=== PATIENT | male | born 1945 | race Hispanic/Latino ===

== ENCOUNTER → 2018-03-15 | Outpatient (CLI) | payer OTHER ==
[~2018-03-15] MED LIST: AEC81 PO; GLIP10TA9 PO; LISI-617 PO; METF-446 PO; METO25TA6 PO; NITR0.4T50 SL; PRAV40TA3 PO
== END | disposition home or self-care (01) ==
LOC: SHCH 08:05
PROVIDERS: ATTEND Internal Medicine Cardiovascular Disease
DX: I34.0 Nonrheumatic mitral (valve) insufficiency (principal)
CPT/HCPCS: 93306

== ENCOUNTER → 2019-03-01 | Outpatient (CLI) | payer OTHER | END | disposition home or self-care (01) | LOC: SHCH 08:15 | PROVIDERS: ATTEND Internal Medicine Cardiovascular Disease | DX: I65.23 Occlusion and stenosis of bilateral carotid arteries (principal) | CPT/HCPCS: 93880 ==

== ENCOUNTER 2019-05-05 07:27 | Day surgery (SDC) | payer OTHER ==
[2019-05-02 12:03] LABS: BASOPHILS % (AUTO) 0.5 % (0.0-5.0); EOSINOPHILS % (AUTO) 1.1 % (0.0-8.0); HEMATOCRIT 38.1 % (42-54); LYMPHOCYTES % (AUTO) 21.2 % (21.0-51.0); MEAN CORPUSCULAR HEMOGLOBIN 33.8 pg (27.0-33.0); MEAN CORPUSCULAR HGB CONC 34.7 g/dL (32.0-36.0); MEAN CORPUSCULAR VOLUME 97.4 fL (79-99); MONOCYTES % (AUTO) 5.9 % (3.0-13.0); NEUTROPHILS % (AUTO) 71.3 % (40.0-77.0); PLATELET COUNT (AUTO) 136 K/uL (130-400); RED BLOOD CELL COUNT(AUTO) 3.92 MIL/uL (4.50-6.20); WHITE BLOOD COUNT (AUTO) 6.2 K/uL (4.8-10.8)
[2019-05-02 12:10] LABS: APPEARANCE,URINE Clear (CLEAR); BILIRUBIN,URINE Negative (NEGATIVE); COLOR,URINE Yellow (YELLOW); GLUCOSE, URINE (UA) >=1000 mg/dL (NEGATIVE); KETONES,URINE Negative (NEGATIVE); LEUKOCYTE ESTERASE ,URINE Trace (NEGATIVE); NITRATE,URINE Negative (NEGATIVE); OCCULT BLOOD,URINE Negative (NEGATIVE); PROTEIN,URINE Negative (NEGATIVE)
[2019-05-02 12:15] LABS: CREATININE 0.9 mg/dL (0.5-1.5); POTASSIUM 4.6 mmol/L (3.5-5.1)
[2019-05-02 13:02] LABS: BACTERIA,URINE Rare /HPF (None Seen); RBC,URINE 0-1 /HPF (0-1); SQUAMOUS EPITHELIAL CELL,UR Rare /HPF (0-2)
--- NOTE | 2019-05-02 13:38 | NUR ---
EKG INFORMED DR. ELIZABETH OF ABNORMAL EKG. NO ORDERS RECEIVED PROCEED WITH PLANNED PROCEDURE.
[2019-05-05] VITALS (14 sets, daily range): BP systolic 110–176; BP diastolic 50–77
[~2019-05-05] VITALS: Ht 167.6 cm; Wt 95.7 kg
[~2019-05-05 07:27] MED LIST changes: +GENTAMICIN 80 MG/NS 100 ML PB 100 ML IV SCH; +LISI-613 PO; -LISI-617 PO; +MULT-1258 PO; -NITR0.4T50 SL; -PRAV40TA3 PO; +ROSU5TAB12 PO
[2019-05-05] MEDS ORDERED: SODIUM CHLORIDE 0.9% 1000ML 1,000 ML IV ONE (07:44)
[2019-05-05] MEDS: CEFTRIAXONE SODIUM 1 GM IVP SCH ×2 (08:00→08:45)
[2019-05-05] MEDS ORDERED: SUCCINYLCHOLINE 200MG/10ML SYR ONE (08:41)
[2019-05-05] MEDS ORDERED: LIDOCAINE PF 2% 5ML ABBOJECT ONE (08:41)
[2019-05-05] MEDS ORDERED: DEXAMETHASONE SOD PHOSPHATE 10MG/ML 1ML VIAL ONE (08:41)
[2019-05-05] MEDS ORDERED: ONDANSETRON HCL 4 MG/2 ML VIAL ONE (08:42)
[2019-05-05] MEDS ORDERED: MIDAZOLAM HCL 1 MG/ML 2ML VIAL ONE (08:42)
[2019-05-05] MEDS ORDERED: PROPOFOL 10 MG/ML 20ML VIAL IV ONE ×2 (08:42→08:53)
[2019-05-05] MEDS ORDERED: ROCURONIUM 10MG/1ML SYR 10 MG/ML ML ONE (08:42)
[2019-05-05] MEDS ORDERED: GLYCOPYRROLATE 1 MG/5 ML SYRINGE ONE (08:42)
[2019-05-05] MEDS ORDERED: NEOSTIGMINE 5MG/5ML SYR IV ONE (08:42)
[2019-05-05] MEDS ORDERED: FENTANYL CITRATE PF 50 MCG/1 ML 2ML VIAL ONE (08:44)
[2019-05-05] MEDS ORDERED: EPHEDRINE SULFATE 50 MG/ML AMPULE ONE (09:06)
== END 2019-05-05 10:52 | disposition home or self-care (01) ==
LOC: DAH 07:27
PROVIDERS: ATTEND Urology
DX: R97.20 Elevated prostate specific antigen [PSA] (principal); N40.0 Benign prostatic hyperplasia without lower urinary tract symptoms; I25.10 Atherosclerotic heart disease of native coronary artery without angina pectoris; E11.9 Type 2 diabetes mellitus without complications; I10 Essential (primary) hypertension; Z79.84 Long term (current) use of oral hypoglycemic drugs; Z79.82 Long term (current) use of aspirin; Z95.1 Presence of aortocoronary bypass graft; Z72.89 Other problems related to lifestyle; Z83.3 Family history of diabetes mellitus; Z82.49 Family history of ischemic heart disease and other diseases of the circulatory system
CPT/HCPCS: 36415; 55700; 76942; 80048; 81001; 82948 ×2; 85025; 87077; 87088; 87186; 88305; 93005; 96365; A4213; A4215; A4221; A4222; A4223 ×2; A4600; A4663; A6260; J0330; J0696; J1100; J1580; J2001; J2250; J2405; J2704; J2710; J3490 ×2; J7030 ×2; J3010

== ENCOUNTER 2022-10-01 23:13 | Emergency (ER) | payer MEDICARE, OTHER ==
[~2022-10-01] VITALS: Ht 160 cm; Wt 90.7 kg
[~2022-10-01 23:13] MED LIST changes: -GENTAMICIN 80 MG/NS 100 ML PB 100 ML IV SCH; -LISI-613 PO; +LISI20TA24 PO
[2022-10-02 01:13] LABS: BASOPHILS % (AUTO) 0.4 % (0.0-5.0); EOSINOPHILS % (AUTO) 1.3 % (0.0-8.0); HEMATOCRIT 38.5 % (42-54); LYMPHOCYTES % (AUTO) 31.7 % (21.0-51.0); MEAN CORPUSCULAR HEMOGLOBIN 33.8 pg (27.0-33.0); MEAN CORPUSCULAR HGB CONC 33.8 g/dL (32.0-36.0); MONOCYTES % (AUTO) 7.6 % (3.0-13.0); NEUTROPHILS % (AUTO) 58.7 % (40.0-77.0); PLATELET COUNT (AUTO) 126 K/uL (130-400); RED BLOOD CELL COUNT(AUTO) 3.85 MIL/uL (4.50-6.20); RED CELL DISTRIBUTION WIDTH 13.4 % (11.0-15.5); WHITE BLOOD COUNT (AUTO) 6.8 K/uL (4.8-10.8)
[2022-10-02 01:26] LABS: CARBON DIOXIDE 29 mmol/L (21-32); CHLORIDE 105 mmol/L (101-111); CREATININE 0.8 mg/dL (0.5-1.5); GLOMERULAR FILTR. RATE CALC 92 mL/min (>90); GLUCOSE,RANDOM 107 mg/dL (70-105); POTASSIUM 4.3 mmol/L (3.5-5.1); SODIUM SERUM 139 mmol/L (136-145); UREA NITROGEN, BLOOD 15 mg/dL (7-18)
[2022-10-02 01:32] LABS: ALANINE AMINOTRANSFERASE 41 U/L (12-78); ALBUMIN 3.2 g/dL (3.5-5.0); ASPARTATE AMINOTRANSFERASE 41 U/L (10-37); TOTAL PROTEIN, SERUM 6.6 g/dL (6.0-8.3)
[2022-10-02 01:38] VITALS: BP 166/67
[2022-10-02 01:45] LABS: APPEARANCE,URINE CLEAR (CLEAR); BILIRUBIN,URINE NEGATIVE (NEGATIVE); COLOR,URINE LIGHT-YELLOW (YELLOW); GLUCOSE, URINE (UA) >=1000 mg/dL (NEGATIVE); KETONES,URINE NEGATIVE (NEGATIVE); LEUKOCYTE ESTERASE ,URINE 500 Leu/uL (NEGATIVE); NITRATE,URINE NEGATIVE (NEGATIVE); PH,URINE 5.5 (5.0-8.0); PROTEIN,URINE NEGATIVE (NEGATIVE); UROBILINOGEN,URINE 0.2 mg/dL (0.2-1.0)
[2022-10-02 01:49] LABS: AMPHET/METH SCREEN,URINE NEGATIVE (NEGATIVE); BARBITURATE SCREEN, URINE NEGATIVE (NEGATIVE); BENZODIAZEPINES SCREEN,URINE NEGATIVE (NEGATIVE); CANNABINOID SCREEN,URINE NEGATIVE (NEGATIVE); COCAINE SCREEN,URINE NEGATIVE (NEGATIVE); OPIATE SCREEN,URINE NEGATIVE (NEGATIVE); PHENCYCLIDINE SCREEN,URINE NEGATIVE (NEGATIVE)
[2022-10-02 01:51] LABS: MUCUS,URINE RARE LPF (None Seen); SQUAMOUS EPITHELIAL CELL,UR RARE /HPF (0-2)
== END 2022-10-02 02:37 | disposition home or self-care (01) ==
LOC: EDH 23:13
DX: I45.10 Unspecified right bundle-branch block (principal); R42 Dizziness and giddiness; E11.9 Type 2 diabetes mellitus without complications; E78.00 Pure hypercholesterolemia, unspecified; I10 Essential (primary) hypertension; Z79.82 Long term (current) use of aspirin; Z79.84 Long term (current) use of oral hypoglycemic drugs; Z79.899 Other long term (current) drug therapy
CPT/HCPCS: 36415; 70450; 71045; 80053; 80305; 81001; 83880; 84484; 85025; 87088; 93005

== ENCOUNTER → 2022-11-01 | Outpatient (CLI) | payer MEDICARE | END | disposition home or self-care (01) | LOC: SHCH 08:05 | PROVIDERS: ATTEND Internal Medicine Cardiovascular Disease | DX: I08.0 Rheumatic disorders of both mitral and aortic valves (principal); I11.9 Hypertensive heart disease without heart failure | CPT/HCPCS: 93306 ==

== ENCOUNTER → 2022-11-07 | Outpatient (CLI) | payer MEDICARE ==
[~2022-11-07] MED LIST changes: +REGADENOSON 0.4 MG/5 ML PF SYG IVP ONE
== END | disposition home or self-care (01) ==
LOC: CANPRECLI → SHCH 08:00
PROVIDERS: ATTEND Internal Medicine Cardiovascular Disease
DX: I25.10 Atherosclerotic heart disease of native coronary artery without angina pectoris (principal); I10 Essential (primary) hypertension; E78.5 Hyperlipidemia, unspecified; Z95.1 Presence of aortocoronary bypass graft; Z79.899 Other long term (current) drug therapy; Z79.82 Long term (current) use of aspirin
CPT/HCPCS: 78452; 96374; 93017; J2785; A9500 ×2

== ENCOUNTER → 2023-03-03 | Outpatient (CLI) | payer MEDICARE ==
[~2023-03-03] MED LIST changes: +ALBU90AE2 IH; +AZIT500T4 PO; +DOXY100T2 PO; +METH4TAB3 PO; -REGADENOSON 0.4 MG/5 ML PF SYG IVP ONE
[2023-03-03 12:48] LABS: ALBUMIN 3.1 g/dL (3.5-5.0); BILIRUBIN,TOTAL 0.3 mg/dL (0.2-1.0); CREATININE 1.2 mg/dL (0.5-1.5); POTASSIUM 4.7 mmol/L (3.5-5.1); TOTAL PROTEIN, SERUM 7.2 g/dL (6.0-8.3)
== END | disposition home or self-care (01) ==
LOC: LAB 10-14 13:44
PROVIDERS: ATTEND Internal Medicine Cardiovascular Disease
DX: I10 Essential (primary) hypertension (principal); E78.5 Hyperlipidemia, unspecified
CPT/HCPCS: 36415; 80053; 83880

== ENCOUNTER 2023-10-12 11:10 | Day surgery (SDC) | payer MEDICARE ==
[2023-10-09 16:00] LABS: BASOPHILS # (AUTO) 0.04 K/uL (0.00-0.20); BASOPHILS % (AUTO) 0.6 % (0.0-5.0); EOSINOPHILS # (AUTO) 0.09 K/uL (0.00-0.70); EOSINOPHILS % (AUTO) 1.4 % (0.0-8.0); HEMATOCRIT 40.4 % (42-54); IMMATURE GRANULOCYTE ABSOLUTE 0.03 K/uL (0-1); LYMPHOCYTES # (AUTO) 2.4 K/uL (1.0-4.8); LYMPHOCYTES % (AUTO) 37.4 % (21.0-51.0); MEAN CORPUSCULAR HEMOGLOBIN 32.2 pg (27.0-33.0); MEAN CORPUSCULAR HGB CONC 33.7 g/dL (32.0-36.0); MEAN CORPUSCULAR VOLUME 95.5 fL (79-99); MONOCYTES # (AUTO) 0.6 K/uL (0.1-1.0); MONOCYTES % (AUTO) 8.4 % (3.0-13.0); NEUTROPHILS # (AUTO) 3.4 K/uL (1.8-7.7); NEUTROPHILS % (AUTO) 51.7 % (40.0-77.0); PLATELET COUNT (AUTO) 159 K/uL (130-400); RED BLOOD CELL COUNT(AUTO) 4.23 MIL/uL (4.50-6.20); WHITE BLOOD COUNT (AUTO) 6.5 K/uL (4.8-10.8)
[2023-10-09 16:09] LABS: APPEARANCE,URINE CLEAR (CLEAR); BILIRUBIN,URINE NEGATIVE (NEGATIVE); COLOR,URINE LIGHT-YELLOW (YELLOW); GLUCOSE, URINE (UA) >=1000 mg/dL (NEGATIVE); KETONES,URINE NEGATIVE (NEGATIVE); LEUKOCYTE ESTERASE ,URINE 25 Leu/uL (NEGATIVE); NITRATE,URINE NEGATIVE (NEGATIVE); PROTEIN,URINE NEGATIVE (NEGATIVE); UROBILINOGEN,URINE 0.2 mg/dL (0.2-1.0)
[2023-10-09 16:10] LABS: ADD UA MICROSCOPIC YES
[2023-10-09 16:12] VITALS: BP 156/65; PULSE 96; RESP 16
[2023-10-09 16:14] LABS: BACTERIA,URINE RARE /HPF (None Seen); MUCUS,URINE RARE LPF (None Seen); SQUAMOUS EPITHELIAL CELL,UR RARE /HPF (0-2)
[2023-10-09 16:17] LABS: CREATININE 0.8 mg/dL (0.5-1.3); POTASSIUM 4.2 mmol/L (3.5-5.1)
[2023-10-09 16:19] LABS: INR <= 0.93 (0.85-1.15); PROTHROMBIN TIME 10.5 SEC (9.6-11.6)
[2023-10-09 16:21] LABS: PARTIAL THROMBOPLASTIN TIME 26.4 SEC (26.3-35.5)
[2023-10-09 16:22] LABS: B-TYPE NATRIURETIC PEPTIDE 108 pg/mL (0-100)
[2023-10-12] VITALS (10 sets, daily range): BP systolic 139–188; BP diastolic 53–75; PULSE 56–71; RESP 14–18
[~2023-10-12] VITALS: Ht 170.2 cm; Wt 83.3 kg
[~2023-10-12 11:10] MED LIST changes: -ALBU90AE2 IH; +ALBUTEROL IH; -AZIT500T4 PO; -DOXY100T2 PO; +EMPA10TA PO; +FURO40TA5 PO; -LISI20TA24 PO; -METF-446 PO; -METH4TAB3 PO; -MULT-1258 PO; +OLME40TA18 PO
[2023-10-12] MEDS: 0.9%NACL 1000ML 1,000 ML IV ONE (13:36)
[2023-10-12] MEDS ORDERED: LIDOCAINE HCL 400MG/20ML VIAL ONE (16:36)
[2023-10-12] MEDS ORDERED: SODIUM BICARB 50MEQ 50ML VIAL 50 ML ONE (16:36)
[2023-10-12] MEDS ORDERED: NITROGLYCERIN 50MG VIAL ONE (16:37)
[2023-10-12] MEDS ORDERED: IOHEXOL-350 50ML VIAL IV ONE (16:37)
[2023-10-12] MEDS ORDERED: IOHEXOL 350 MG/ML 100ML INFUS..BTL IV ONE (16:37)
[2023-10-12] MEDS ORDERED: MIDAZOLAM HCL 1 MG/ML 2ML VIAL ONE (16:37)
[2023-10-12] MEDS ORDERED: MEPERIDINE-PF 25 MG/ML SYG ONE (16:37)
[2023-10-12] MEDS ORDERED: HEPARIN 10,000 UNIT/10ML (1,000 UNIT/ML) VIAL ONE (16:37)
[2023-10-12] MEDS: 0.9%NACL 1000ML 1,000 ML IV SCH (17:00)
[2023-10-12] MEDS ORDERED: GLUCAGON 1MG KIT 1 MG ML IM PRN (17:30)
[2023-10-12] MEDS ORDERED: DEXTROSE 50%-WATER 50 ML DISP.SYRIN IV PRN (17:30)
[2023-10-12] MEDS ORDERED: INSULIN HUMULIN R 100 UNIT/ML 3ML SQ SCH (21:00)
== END 2023-10-12 21:09 | disposition home or self-care (01) ==
LOC: DAH 11:10
PROVIDERS: ATTEND Internal Medicine Cardiovascular Disease
DX: I25.10 Atherosclerotic heart disease of native coronary artery without angina pectoris (principal); I25.82 Chronic total occlusion of coronary artery; I42.9 Cardiomyopathy, unspecified; I44.0 Atrioventricular block, first degree; I49.1 Atrial premature depolarization; I11.0 Hypertensive heart disease with heart failure; I45.10 Unspecified right bundle-branch block; E11.9 Type 2 diabetes mellitus without complications; I50.9 Heart failure, unspecified; E66.9 Obesity, unspecified; Z79.899 Other long term (current) drug therapy; Z79.01 Long term (current) use of anticoagulants; Z79.82 Long term (current) use of aspirin; Z98.890 Other specified postprocedural states; Z95.1 Presence of aortocoronary bypass graft; Z82.49 Family history of ischemic heart disease and other diseases of the circulatory system; Z83.3 Family history of diabetes mellitus; Z68.29 Body mass index [BMI] 29.0-29.9, adult
CPT/HCPCS: 80048; 83880; 85025; 85610; 85730; 81001; 36415; 71045; 93005; 93459; 82948 ×2; C1894; C1760; J3490 ×3; J7030; J2250; J2175; J1644; Q9967; A4215; A4222; A4221; A4663; A4216; A4606; Q9965; A4223 ×3; 99156; 99157

== ENCOUNTER 2023-11-16 00:04 | Inpatient (IN) | payer MEDICARE ==
[~2023-11-16] VITALS: Ht 162.6 cm; Wt 78.9 kg
[2023-11-16] VITALS (10 sets, daily range): BP systolic 130–165; BP diastolic 59–72; PULSE 60–100; RESP 16–22; O2SAT 95–98
[~2023-11-16 00:04] MED LIST changes: -ALBUTEROL IH; +CHOL500051 PO; +CYAN-106 PO; -EMPA10TA PO; +EMPA25TA PO; +FOLI0.4T6 PO; +ICOS1CAP2 PO; -ROSU5TAB12 PO; +ROSU5TAB43 PO
[2023-11-16 00:43] LABS: BASOPHILS # (AUTO) 0.03 K/uL (0.00-0.20); BASOPHILS % (AUTO) 0.2 % (0.0-5.0); EOSINOPHILS # (AUTO) 0.01 K/uL (0.00-0.70); EOSINOPHILS % (AUTO) 0.1 % (0.0-8.0); HEMATOCRIT 36.8 % (42-54); IMMATURE GRANULOCYTE ABSOLUTE 0.37 K/uL (0-1); LYMPHOCYTES # (AUTO) 1.5 K/uL (1.0-4.8); LYMPHOCYTES % (AUTO) 10.4 % (21.0-51.0); MEAN CORPUSCULAR HEMOGLOBIN 31.7 pg (27.0-33.0); MEAN CORPUSCULAR HGB CONC 34.2 g/dL (32.0-36.0); MEAN CORPUSCULAR VOLUME 92.7 fL (79-99); MONOCYTES # (AUTO) 0.8 K/uL (0.1-1.0); MONOCYTES % (AUTO) 5.4 % (3.0-13.0); NEUTROPHILS # (AUTO) 11.7 K/uL (1.8-7.7); NEUTROPHILS % (AUTO) 81.3 % (40.0-77.0); PLATELET COUNT (AUTO) 102 K/uL (130-400); RED BLOOD CELL COUNT(AUTO) 3.97 MIL/uL (4.50-6.20); RED CELL DISTRIBUTION WIDTH 13.6 % (11.0-15.5); WHITE BLOOD COUNT (AUTO) 14.4 K/uL (4.8-10.8)
[2023-11-16] MEDS: ACETAMINOPHEN 500 MG TABLET PO ONE (00:44)
[2023-11-16] MEDS: SOLU-MEDROL 125MG VIAL IVP ONE (00:44)
[2023-11-16 00:49] LABS: SARS-CoV-2, RNA, NAAT NEGATIVE SARS CoV-2 (NEGATIVE)
[2023-11-16 00:54] LABS: CREATININE 1.3 mg/dL (0.5-1.3); POTASSIUM 4.6 mmol/L (3.5-5.1)
[2023-11-16 00:54] LABS: INFLUENZA TYPE A Negative For Type A (NEGATIVE); INFLUENZA TYPE B Negative For Type B (NEGATIVE)
[2023-11-16 01:03] LABS: B-TYPE NATRIURETIC PEPTIDE 107 pg/mL (0-100)
[2023-11-16] MEDS: IPRATROPIUM/ALBUTEROL SULFATE 3 ML SOLUTION IH ONE (01:03)
[2023-11-16 01:06] LABS: APPEARANCE,URINE CLEAR (CLEAR); BILIRUBIN,URINE NEGATIVE (NEGATIVE); COLOR,URINE LIGHT-YELLOW (YELLOW); GLUCOSE, URINE (UA) >=1000 mg/dL (NEGATIVE); KETONES,URINE 20 mg/dL (NEGATIVE); LEUKOCYTE ESTERASE ,URINE 250 Leu/uL (NEGATIVE); NITRATE,URINE NEGATIVE (NEGATIVE); OCCULT BLOOD,URINE MODERATE (NEGATIVE); PH,URINE 6.5 (5.0-8.0); PROTEIN,URINE 30 mg/dL (NEGATIVE); UROBILINOGEN,URINE 0.2 mg/dL (0.2-1.0)
[2023-11-16 01:10] LABS: ADD UA MICROSCOPIC YES
[2023-11-16 01:11] LABS: SQUAMOUS EPITHELIAL CELL,UR RARE /HPF (0-2); WBC,URINE >100 /HPF (0-1)
[2023-11-16] MEDS: ZOSYN 3.375GM +NS 50ML IV ONE (01:29)
[2023-11-16] MEDS ORDERED: ONDANSETRON 4MG INJ IV PRN (01:30)
[2023-11-16] MEDS ORDERED: DiphenhydrAMINE HCL 50 MG/ML VIAL IV PRN (01:30)
[2023-11-16] MEDS ORDERED: ZOLPIDEM TARTRATE 5 MG TAB PO PRN (01:30)
[2023-11-16] MEDS ORDERED: MAG/ALUM/SIMETH 30 ML UDCUP PO PRN (01:30)
[2023-11-16] MEDS ORDERED: KCL 20 MEQ ERTAB PO PRN (01:30)
[2023-11-16] MEDS ORDERED: VANCOMYCIN PROTOCOL PER PHARMACY IV PRN (01:30)
[2023-11-16] MEDS ORDERED: GLUCAGON 1MG KIT 1 MG ML IM PRN (01:30)
[2023-11-16] MEDS ORDERED: LACTULOSE 20 GM/30 ML UDCUP PO PRN (01:30)
[2023-11-16] MEDS ORDERED: FAMOTIDINE 20MG VIAL IV PRN (01:30)
[2023-11-16] MEDS ORDERED: DEXTROSE 50%-WATER 50 ML DISP.SYRIN IV PRN (01:30)
[2023-11-16] MEDS ORDERED: POTASSIUM CHLORIDE 10MEQ/100ML 100 ML IV PRN (01:30)
[2023-11-16] MEDS ORDERED: MAGNESIUM 2GM PREMIX 50ML 50 ML IV PRN (01:30)
[2023-11-16] MEDS ORDERED: ACETAMINOPHEN 325 MG TAB PO PRN (01:30)
[2023-11-16] MEDS ORDERED: NITROGLYCERIN 0.4 MG SL TAB SL PRN (01:30)
[2023-11-16] MEDS: VANCOMYCIN KIT 1 GM/250 ML IV.KIT IV ONE (01:32)
[2023-11-16 01:39] LABS: HEMOGLOBIN A1C 6.8 % (4.0-6.0)
[2023-11-16] MEDS: 0.9%NACL 1000ML 1,000 ML IV SCH ×2 (03:11→05:10)
[2023-11-16 04:23] LABS: AMMONIA < 10 umol/L (11-32)
[2023-11-16] MEDS: ZOSYN 3.375GM+NS 50ML 50 ML IV SCH (05:30)
[2023-11-16] MEDS: INSULIN HUMULIN R 100 UNIT/ML 3ML SQ SCH (06:13)
[2023-11-16] MEDS: FAMOTIDINE 20MG VIAL IV SCH ×2 (08:23→20:22)
[2023-11-16] MEDS: HEPARIN 5,000 UNIT VIAL SQ SCH (08:26)
[2023-11-16] MEDS: LACTATED RINGERS 1000ML 1,000 ML IV SCH (10:07)
[2023-11-16] MEDS ORDERED: EMPA25TA PO (10:39)
[2023-11-16 10:53] LABS: ABG HCO3 19.3 mmol/L (21.0-28.0); ABG OXYGEN SATURATION 97.6 % (95.0-99.0); ABG PCO2 37 mmHg (35-48); PO2, ARTERIAL BG 106.8 mmHg (83.0-108.0); VENT MODE, BG 2 L NC (ROOM AIR)
[2023-11-16] MEDS: BUDESONIDE 0.5 MG/2 ML INH IH SCH (18:00)
[2023-11-16] MEDS: IPRATROPIUM/ALBUTEROL SULFATE 3 ML SOLUTION IH SCH (18:00)
[2023-11-16] MEDS: DOXYCYCLINE 100MG+NS 250ML 250 ML IV SCH (18:09)
[2023-11-16] MEDS: CEFEPIME HCL 1 GM VIAL IVPB SCH (18:09)
[2023-11-17] VITALS (11 sets, daily range): BP systolic 130–151; BP diastolic 59–85; PULSE 62–78; RESP 16–21; O2SAT 96–98
[2023-11-17 05:23] LABS: HEMATOCRIT 34.4 % (42-54); MEAN CORPUSCULAR HGB CONC 32.8 g/dL (32.0-36.0); MEAN CORPUSCULAR VOLUME 94.5 fL (79-99); RED BLOOD CELL COUNT(AUTO) 3.64 MIL/uL (4.50-6.20); RED CELL DISTRIBUTION WIDTH 13.5 % (11.0-15.5); WHITE BLOOD COUNT (AUTO) 10.4 K/uL (4.8-10.8)
[2023-11-17 05:45] LABS: ALBUMIN 2.2 g/dL (3.5-5.0); BILIRUBIN,TOTAL 0.3 mg/dL (0.2-1.0); MAGNESIUM 2.3 mg/dL (1.80-2.40); POTASSIUM 4.4 mmol/L (3.5-5.1); TOTAL PROTEIN, SERUM 6.2 g/dL (6.0-8.3)
[2023-11-17] MEDS ORDERED: VANCOMYCIN 1G/250ML KIT 250 ML IV SCH (08:00)
[2023-11-17] MEDS: GUAIFENESIN-DM 200/20 MG 10 ML PO PRN (09:24)
[2023-11-18] VITALS (14 sets, daily range): BP systolic 148–172; BP diastolic 60–78; PULSE 74–106; RESP 18–19; O2SAT 93–98
[2023-11-18 04:54] LABS: HEMATOCRIT 31.3 % (42-54); MEAN CORPUSCULAR HEMOGLOBIN 31.7 pg (27.0-33.0); MEAN CORPUSCULAR HGB CONC 34.2 g/dL (32.0-36.0); MEAN CORPUSCULAR VOLUME 92.6 fL (79-99); RED BLOOD CELL COUNT(AUTO) 3.38 MIL/uL (4.50-6.20); RED CELL DISTRIBUTION WIDTH 13.8 % (11.0-15.5); WHITE BLOOD COUNT (AUTO) 6.9 K/uL (4.8-10.8)
[2023-11-18 05:06] LABS: CREATININE 0.9 mg/dL (0.5-1.3); POTASSIUM 3.8 mmol/L (3.5-5.1)
[2023-11-18] MEDS: HYDRALAZINE 20MG/ML VIAL IV PRN (11:37)
[2023-11-18] MEDS: ZOSYN 3.375GM +NS 50ML IV SCH (13:15)
[2023-11-18] MEDS: ACETAMINOPHEN 325 MG TAB PO PRN (13:43)
[2023-11-18 14:53] LABS: INR <= 0.93 (0.85-1.15); PROTHROMBIN TIME 10.4 SEC (9.6-11.6)
[2023-11-18 14:55] LABS: PARTIAL THROMBOPLASTIN TIME 26.5 SEC (26.3-35.5)
[2023-11-19] VITALS (15 sets, daily range): BP systolic 127–173; BP diastolic 60–96; PULSE 56–105; RESP 17–28; TEMP 98.5; O2SAT 92–98
[2023-11-19 04:21] LABS: HEMATOCRIT 34.7 % (42-54); MEAN CORPUSCULAR VOLUME 91.1 fL (79-99); RED BLOOD CELL COUNT(AUTO) 3.81 MIL/uL (4.50-6.20); RED CELL DISTRIBUTION WIDTH 13.7 % (11.0-15.5); WHITE BLOOD COUNT (AUTO) 5.1 K/uL (4.8-10.8)
[2023-11-19 04:26] LABS: CREATININE 0.9 mg/dL (0.5-1.3); POTASSIUM 3.2 mmol/L (3.5-5.1)
[2023-11-19] MEDS: POTASSIUM CHLORIDE 10MEQ SR TAB PO PRN (06:15)
[2023-11-19] MEDS: KETOROLAC 15MG/ML VIAL (15MG/ML) IV PRN (06:16)
[2023-11-19] MEDS: ACETAMINOPHEN 325 MG TAB PO PRN (10:02)
[2023-11-19 11:31] LABS: INFLUENZA TYPE A Negative For Type A (NEGATIVE); INFLUENZA TYPE B Negative For Type B (NEGATIVE)
[2023-11-19] MEDS: POTASSIUM CHLORIDE 10% ELIXIR 20 MEQ/15 ML UDCUP PO PRN (13:36)
[2023-11-19] MEDS: ALBUTEROL 0.083% 2.5 MG/3 ML INH IH ONE (16:28)
[2023-11-19] MEDS: ALBUTEROL 0.083% 2.5 MG/3 ML INH IH PRN (16:28)
[2023-11-19] MEDS: FUROSEMIDE 20MG VIAL IV ONE (16:49)
[2023-11-19] MEDS: ALPRAZOLAM 0.25 MG TABLET PO SCH (17:33)
[2023-11-19] MEDS: PHENAZOPYRIDINE HCL 200 MG TABLET PO ONE (19:40)
[2023-11-19] MEDS: NYSTATIN 30 GM CREAM.GM. TP SCH (20:30)
[2023-11-20] VITALS (12 sets, daily range): BP systolic 126–156; BP diastolic 49–76; PULSE 86–99; RESP 16–20; O2SAT 93–100
[2023-11-20 05:28] LABS: BASOPHILS # (AUTO) 0.01 K/uL (0.00-0.20); BASOPHILS % (AUTO) 0.2 % (0.0-5.0); EOSINOPHILS # (AUTO) 0.03 K/uL (0.00-0.70); EOSINOPHILS % (AUTO) 0.6 % (0.0-8.0); HEMATOCRIT 34.2 % (42-54); IMMATURE GRANULOCYTE ABSOLUTE 0.08 K/uL (0-1); LYMPHOCYTES # (AUTO) 0.8 K/uL (1.0-4.8); LYMPHOCYTES % (AUTO) 14.6 % (21.0-51.0); MEAN CORPUSCULAR HEMOGLOBIN 31.3 pg (27.0-33.0); MEAN CORPUSCULAR HGB CONC 33.9 g/dL (32.0-36.0); MEAN CORPUSCULAR VOLUME 92.2 fL (79-99); MONOCYTES # (AUTO) 0.3 K/uL (0.1-1.0); MONOCYTES % (AUTO) 6.3 % (3.0-13.0); NEUTROPHILS % (AUTO) 76.8 % (40.0-77.0); PLATELET COUNT (AUTO) 112 K/uL (130-400); RED BLOOD CELL COUNT(AUTO) 3.71 MIL/uL (4.50-6.20); RED CELL DISTRIBUTION WIDTH 13.6 % (11.0-15.5); WHITE BLOOD COUNT (AUTO) 5.2 K/uL (4.8-10.8)
[2023-11-20 05:55] LABS: ALBUMIN 2.1 g/dL (3.5-5.0); BILIRUBIN,TOTAL 0.6 mg/dL (0.2-1.0); CREATININE 0.7 mg/dL (0.5-1.3); POTASSIUM 3.2 mmol/L (3.5-5.1); TOTAL PROTEIN, SERUM 5.8 g/dL (6.0-8.3)
[2023-11-20 15:23] LABS: APPEARANCE,URINE CLEAR (CLEAR); BILIRUBIN,URINE NEGATIVE (NEGATIVE); COLOR,URINE YELLOW (YELLOW); GLUCOSE, URINE (UA) >=1000 mg/dL (NEGATIVE); KETONES,URINE NEGATIVE (NEGATIVE); LEUKOCYTE ESTERASE ,URINE 25 Leu/uL (NEGATIVE); NITRATE,URINE NEGATIVE (NEGATIVE); OCCULT BLOOD,URINE NEGATIVE (NEGATIVE); PROTEIN,URINE NEGATIVE (NEGATIVE); UROBILINOGEN,URINE 0.2 mg/dL (0.2-1.0)
[2023-11-20 15:36] LABS: ADD UA MICROSCOPIC YES
[2023-11-20 15:46] LABS: MUCUS,URINE RARE LPF (None Seen)
[2023-11-21] VITALS (15 sets, daily range): BP systolic 128–141; BP diastolic 50–76; PULSE 78–98; RESP 16–20; O2SAT 92–99
[2023-11-21 04:22] LABS: BASOPHILS # (AUTO) 0.02 K/uL (0.00-0.20); BASOPHILS % (AUTO) 0.5 % (0.0-5.0); EOSINOPHILS # (AUTO) 0.16 K/uL (0.00-0.70); EOSINOPHILS % (AUTO) 3.9 % (0.0-8.0); HEMATOCRIT 36.1 % (42-54); IMMATURE GRANULOCYTE ABSOLUTE 0.08 K/uL (0-1); LYMPHOCYTES # (AUTO) 1.5 K/uL (1.0-4.8); LYMPHOCYTES % (AUTO) 35.8 % (21.0-51.0); MEAN CORPUSCULAR HGB CONC 33.8 g/dL (32.0-36.0); MEAN CORPUSCULAR VOLUME 94.8 fL (79-99); MONOCYTES # (AUTO) 0.4 K/uL (0.1-1.0); MONOCYTES % (AUTO) 8.6 % (3.0-13.0); NEUTROPHILS % (AUTO) 49.2 % (40.0-77.0); PLATELET COUNT (AUTO) 114 K/uL (130-400); RED BLOOD CELL COUNT(AUTO) 3.81 MIL/uL (4.50-6.20); RED CELL DISTRIBUTION WIDTH 13.6 % (11.0-15.5); WHITE BLOOD COUNT (AUTO) 4.1 K/uL (4.8-10.8)
[2023-11-21 04:53] LABS: BILIRUBIN,TOTAL 0.5 mg/dL (0.2-1.0); CREATININE 0.8 mg/dL (0.5-1.3); POTASSIUM 4.2 mmol/L (3.5-5.1); TOTAL PROTEIN, SERUM 5.9 g/dL (6.0-8.3)
[2023-11-21] MEDS: FLUCONAZOLE 100 MG TAB PO SCH (09:30)
[2023-11-22] VITALS (9 sets, daily range): BP systolic 135–158; BP diastolic 60–65; PULSE 77–112; RESP 17–20; O2SAT 92–95
[2023-11-22 04:38] LABS: BASOPHILS # (AUTO) 0.03 K/uL (0.00-0.20); BASOPHILS % (AUTO) 0.9 % (0.0-5.0); EOSINOPHILS # (AUTO) 0.21 K/uL (0.00-0.70); HEMATOCRIT 33.9 % (42-54); IMMATURE GRANULOCYTE ABSOLUTE 0.03 K/uL (0-1); LYMPHOCYTES # (AUTO) 1.6 K/uL (1.0-4.8); LYMPHOCYTES % (AUTO) 47.1 % (21.0-51.0); MEAN CORPUSCULAR HEMOGLOBIN 31.3 pg (27.0-33.0); MEAN CORPUSCULAR VOLUME 94.7 fL (79-99); MONOCYTES # (AUTO) 0.4 K/uL (0.1-1.0); MONOCYTES % (AUTO) 10.3 % (3.0-13.0); NEUTROPHILS # (AUTO) 1.2 K/uL (1.8-7.7); NEUTROPHILS % (AUTO) 34.8 % (40.0-77.0); PLATELET COUNT (AUTO) 108 K/uL (130-400); RED BLOOD CELL COUNT(AUTO) 3.58 MIL/uL (4.50-6.20); RED CELL DISTRIBUTION WIDTH 13.4 % (11.0-15.5); WHITE BLOOD COUNT (AUTO) 3.5 K/uL (4.8-10.8)
[2023-11-22 04:57] LABS: ALBUMIN 2.1 g/dL (3.5-5.0); BILIRUBIN,TOTAL 0.3 mg/dL (0.2-1.0); CREATININE 0.8 mg/dL (0.5-1.3); POTASSIUM 3.9 mmol/L (3.5-5.1); TOTAL PROTEIN, SERUM 5.7 g/dL (6.0-8.3)
[2023-11-22] MEDS ORDERED: GUAI10LI14 PO (11:40)
[2023-11-22] MEDS ORDERED: FLUC100T12 PO (11:40)
[2023-11-22] MEDS ORDERED: [UNRECOGNIZED DRUG - CODE] TP (11:40)
== END 2023-11-22 13:15 | disposition home or self-care (01) | DRG 871 ==
LOC: EDH 00:04 → EDHIP 01:06 → 4CH 02:20
PROVIDERS: ADMIT Hospitalist; ATTEND Hospitalist
PROC: 05HB33Z Insertion of Infusion Device into Right Basilic Vein, Percutaneous Approach (ICD-10-PCS; principal; 2023-11-18)
PROC: B54MZZA Ultrasonography of Right Upper Extremity Veins, Guidance (ICD-10-PCS; 2023-11-18)
DX: A41.51 Sepsis due to Escherichia coli [E. coli] (principal); J18.9 Pneumonia, unspecified organism; E44.0 Moderate protein-calorie malnutrition; Z16.12 Extended spectrum beta lactamase (ESBL) resistance; Z16.24 Resistance to multiple antibiotics; N30.00 Acute cystitis without hematuria; E87.20 Acidosis, unspecified; E11.65 Type 2 diabetes mellitus with hyperglycemia; J45.909 Unspecified asthma, uncomplicated; E78.00 Pure hypercholesterolemia, unspecified; D69.6 Thrombocytopenia, unspecified; J47.9 Bronchiectasis, uncomplicated; E87.6 Hypokalemia; I11.9 Hypertensive heart disease without heart failure; F41.9 Anxiety disorder, unspecified; I25.10 Atherosclerotic heart disease of native coronary artery without angina pectoris; I25.2 Old myocardial infarction; Z82.49 Family history of ischemic heart disease and other diseases of the circulatory system; Z83.3 Family history of diabetes mellitus; Z95.1 Presence of aortocoronary bypass graft; Z87.891 Personal history of nicotine dependence; Z68.29 Body mass index [BMI] 29.0-29.9, adult
CPT/HCPCS: 36415; 36600; 71045; 71250; 78582; 80048; 80053; 81001; 82140; 82550; 82803; 82948; 83036; 83605; 83735; 83880; 84145; 84484; 85025; 85027; 85378; 85610; 85730; 86140; 87040; 87077; 87088; 87186; 87635; 87804; 93005; 94640; 94664; 94760; A9540; A9558; C1894; G0378; J0360; J0692; J1644; J1815; J1885; J1940; J2543; J2919; J3370; J3490; J7030

== ENCOUNTER 2024-10-16 13:39 | Inpatient (IN) | payer MEDICARE ==
[~2024-10-16] VITALS: Ht 162.6 cm; Wt 83.8 kg
[~2024-10-16 13:39] MED LIST changes: +FLUC100T12 PO; +GLIP10TA16 PO; -GLIP10TA9 PO; +GUAIFDM PO; -ROSU5TAB43 PO; +ROSU5TAB51 PO; +[UNRECOGNIZED DRUG - CODE] TP
--- NOTE | 2024-10-16 14:20 | ERN ---
General Chief Complaint: Mechanical Fall Stated Complaint: FALL Time Seen by MD: 13:43 Source: patient, EMS History of Present Illness Initial Comments Patient is a 79-year-old male coming in due to a fall. Per EMS patient fell down he was found in the floor and was found to have low blood pressure and increased heart rate. Per EMS patient is not complaining of any pain in his here for further evaluation of low blood pressure. Allergies: Coded Allergies: No Known Drug Allergies (Verified Allergy, 08/18/13) Home Meds Active Scripts Nystatin (Mycostatin Cream [[facility] Only]) 100,000 Unit/Gram Crm, 1 APPL TP TID, #1 TUB Prov:HERSON GAVIN [facility] 11/22/23 Guaifenesin/Dextromethorphan (Guaifenesin-Dm 200-20 mg/10 ml) 100 Mg-10 Mg/5 Ml Liquid, 10 ML PO Q4H PRN for COUGH, #120 ML Prov[facility] 11/22/23 Fluconazole (Fluconazole) 100 Mg Tablet, 100 MG PO DAILY, #3 TAB 0 Refills Prov:HERSNO GAVIN [facility] 11/22/23 Reported Medications Empagliflozin (Jardiance) 25 Mg Tablet, 25 MG PO AM, TAB 11/16/23 Folic Acid (Folic Acid) 0.4 Mg Tablet, 0.4 MG PO AM, TAB 11/03/23 Cholecalciferol (Vitamin D3) (Vitamin D3) 125 Mcg (5000 Unit) Capsule, 125 MCG PO AM, CAP 11/03/23 Icosapent Ethyl (Icosapent Ethyl) 1 Gram Capsule, 1 GM PO AM, CAP 11/03/23 Cyanocobalamin (Vitamin B-12) (Vitamin B12) 1,000 Mcg Tablet, 1000 MCG PO AM, TAB 11/03/23 Olmesartan Medoxomil (Olmesartan Medoxomil) 40 Mg Tablet, 40 MG PO AM, TAB 11/03/23 Furosemide (Furosemide) 40 Mg Tablet, 40 MG PO AM, TAB 10/09/23 Glipizide (Glipizide) 10 Mg Tablet, 10 MG PO AM, TAB 05/02/19 Rosuvastatin Calcium (Rosuvastatin Calcium) 5 Mg Tablet, 5 MG PO AM, TAB 05/02/19 Metoprolol Tartrate (Metoprolol Tartrate) 25 Mg Tablet, 25 MG PO BID, TAB 04/11/14 Aspirin (ASPIRIN 81 MG ECTAB) 81 Mg Ectab, 81 MG PO HS, TAB.EC 04/07/14 Past Medical History Past Medical History: CAD Past Surgical History: CABG Family History Family History: HTN Social History Social History: ETOH, Lives with family ROS Dictation CONSTITUTIONAL: No chills, no fever, weakness, no diaphoresis, no malaise. HEAD/FACE: No signs of trauma. EENT: No eye pain, no blurred vision, no tearing, no double vision, no ear pain, no ear discharge, no nose pain, no nasal congestion, no throat pain, no throat swelling, no mouth pain. RESPIRATORY: No cough, no orthopnea, no SOB, no stridor, no wheezing. CARDIOVASCULAR: No chest pain, no edema, no palpitations, no syncope. GASTROINTESTINAL/ABDOMINAL: No abdominal pain, no constipation, no diarrhea, no nausea, no vomiting. GENITOURINARY: No abnormal discharge, no dysuria, no frequent urination, no hematuria. No complaints of pain in the genitals. MUSCULOSKELETAL: No back pain, no gout, no joint pain, no joint swelling, no muscle pain, no muscle stiffness, no neck pain. INTEGUMENTARY: No change in color, no change in hair/nails, no dryness, no lesion, no lumps, no rash. NEUROLOGICAL/PSYCH: No anxiety, not depressed, no emotional problem, no headac he, no numbness, no pre-existing deficit, no history of seizures, no tremors, no weakness. HEMATOLOGIC/LYMPHATIC: Not anemic, no history of blood clots, no apparent bleeding, no bruising, glands not swollen. All Systems Negative, Except as Noted. Physical Exam Physical Exam Dictation VITAL SIGNS: Reviewed. GENERAL APPEARANCE: Alert, oriented x3, no acute distress, obese. HEAD AND FACE: Non-traumatic. EYES: PERRL, pink conjunctivas, eyelid no trauma, anterior chamber clear. EARS: Pinnas intact and no signs of trauma or erythema. Ear canals clear and no discharge. TMs no erythema. NOSE: No discharge, no bleeding. OROPHARYNX: Mouth normal, teeth no caries, tongue pink. Pharynx clear, no erythema. Tonsils no exudates, no abscesses noted. Mucous membrane moist. NECK: Supple, non-tender, no thyromegaly, no masses, no JVD, no bruits. BREAST: Deferred. CHEST: No tenderness, no crepitus, no paradoxical movement, no retractions. LUNGS: Clear, well-ventilated, symmetric, no rales, no wheezing, no rhonchi, no stridor, good breath sounds bilaterally. HEART: Regular rate, regular rhythm, no murmur, no gallops. VASCULAR: No peripheral edema. ABDOMEN: Soft, positive bowel sounds, nondistended, no guarding, nontender, no rebound, no masses no hepatomegaly, no splenomegaly, no Richardson's sign, no hernias. RECTAL: Deferred. GENITAL: Deferred. NEUROLOGICAL: Normal speech, gross motor function intact, gross sensory function intact. MUSCULOSKELETAL: Neck nontender, full range of motion, back nontender, full range of motion. EXTREMITIES: Nontender, full range of motion. SKIN: Color pink, dry, no turgor, no rash, no lacerations, no abrasions, no contusions. LYMPHATICS: Deferred. Results Laboratory and Microbiology Lab and Micro Result Laboratory Tests Test 10/16/24 14:01 10/16/24 14:30 10/16/24 14:40 White Blood Count 11.9 K/uL (4.8-10.8) H Red Blood Count 3.79 MIL/uL (4.50-6.20) L Hemoglobin 12.7 g/dL (14.0-18.0) L Hematocrit 36.8 % (42-54) L Mean Corpuscular Volume 97.1 fL (79-99) Mean Corpuscular Hemoglobin 33.5 pg (27.0-33.0) H Mean Corpuscular Hemoglobin Concent 34.5 g/dL (32.0-36.0) Red Cell Distribution Width 12.9 % (11.0-15.5) Platelet Count 124 K/uL (130-400) L Mean Platelet Volume 11.7 fL (7.5-10.5) H Immature Granulocyte % (Auto) 0.7 % (0-1) Neutrophils (%) (Auto) 85.1 % (40.0-77.0) H Lymphocytes (%) (Auto) 7.9 % (21.0-51.0) L Monocytes (%) (Auto) 5.9 % (3.0-13.0) Eosinophils (%) (Auto) 0.1 % (0.0-8.0) Basophils (%) (Auto) 0.3 % (0.0-5.0) Neutrophils # (Auto) 10.1 K/uL (1.8-7.7) H Lymphocytes # (Auto) 0.9 K/uL (1.0-4.8) L Monocytes # (Auto) 0.7 K/uL (0.1-1.0) Eosinophils # (Auto) 0.01 K/uL (0.00-0.70) Basophils # (Auto) 0.04 K/uL (0.00-0.20) Absolute Immature Granulocyte (auto 0.08 K/uL (0-1) Nucleated Red Blood Cells 0.0 % (0.0-0.19) White Cell Morphology Comment See comments Sodium Level 132 mmol/L (136-145) L Potassium Level 3.8 mmol/L (3.5-5.1) Chloride Level 99 mmol/L (101-111) L Carbon Dioxide Level 24 mmol/L (21-32) Blood Urea Nitrogen 24 mg/dL (7-18) H Creatinine 1.4 mg/dL (0.5-1.3) H Glomerular Filtration Rate Calc 51 mL/min (>90) Random Glucose 314 mg/dL (70-105) H Lactic Acid Level 2.7 mmol/L (0.8-2.5) H Total Calcium 8.3 mg/dL (8.5-10.1) L Total Creatine Kinase 70 U/L (21-232) # Troponin I High Sensitivity 20 ng/L (4-75) B-Type Natriuretic Peptide 150 pg/mL (0-100) H Influenza Type A Antigen Negative For Type A Influenza Type B Antigen Negative For Type B SARS-CoV-2, RNA, NAAT NEGATIVE SARS CoV-2 Urine Color YELLOW (YELLOW) Urine Appearance CLEAR (CLEAR) Urine pH 5.0 (5.0-8.0) Urine Specific [place] 1.031 (1.001-1.031) Urine Protein NEGATIVE mg/dL (NEGATIVE) Urine Glucose (UA) >=1000 mg/dL (NEGATIVE) H Urine Ketones 10 mg/dL (NEGATIVE) H Urine Occult Blood SMALL (NEGATIVE) H Urine Nitrate NEGATIVE (NEGATIVE) Urine Bilirubin NEGATIVE mg/dL (NEGATIVE) Urine Urobilinogen 3 mg/dL (0.2-1.0) H Urine Leukocyte Esterase NEGATIVE Gina/uL Urine RBC 2-5 /HPF (0-1) H Urine WBC 2-5 /HPF (0-1) H Urine Bacteria RARE /HPF (None Seen) Urine Yeast RARE /HPF (None Seen) Labs Reviewed?: Yes EKG/XRAY/US/CT/MRI EKG Comment 10/16/2024 time 2:28 p.m. Ventricular rate 102 Sinus rhythm The see wave elevation or depression X-RAY Comment [facility] [address] [place] [address] IMAGING REPORT Signed PATIENT: ARLINE BAUTISTA MR#: [id number] : 1945 SEX: M AGE: 79 LOCATION: [facility] ORDER [id number] STATUS: REG ER REPORT#: [id number] SERVICE 1343 REASON: cough ORDERING PHYSICIAN: CHIRAG [place] MD PROCEDURE: CXR1VW - CHEST 1VW CHEST 1VW HISTORY: Altered COMPARISON: 11/20/2023 FINDINGS: A frontal projection of the chest was obtained. Mild bilateral pulmonary infiltrates are seen may be related to mild pulmonary vascular congestion with possible superimposed pneumonitis. Poststernotomy changes are seen. The heart is enlarged. Degenerative changes of the thoracolumbar spine are present. Degenerative changes are seen. No evidence of aortic calcification is seen. IMPRESSION: 1. Bilateral pulmonary infiltrates are seen suggestive of pulmonary vascular congestion with possible superimposed pneumonitis. DICTATED BY: MARIO FINCH MD DATE: 10/16/241451 ELECTRONICALLY SIGNED BY: MARIO FINCH MD DATE: 10/16/24 145 [facility] MDM: Differential diagnosis: SEPSIS, HYPOTENSION, DEHYDRATION, SITA, Rationale: Tests considered and ordered secondary to shared decision making include: Previous outside records reviewed: Old ER visits. Risk of complication and/or morbidity or mortality of patient management: None Medications-Per medication reconciliation Need for hospitalization: Patient does meet criteria for hospitalization. Need for emergency major/minor surgery: No There are no social concerns with this patient. Prescription drug management Prescriptions will include symptomatic care Patient's prior external medical records from other ER visits were reviewed by me as indicated. Prior testing and results from previous visits were reviewed. Prior tests were taken into account with medical decision making and resource utilization, independent historian/historians were used to obtain complete medical history. I independently interpreted the test that were performed, results were reviewed by me and considered findings on radiology if ordered. Medical management and examination interpretation discussions were had by me with other qualified healthcare professionals as indicated for the patient's care. ED Course Orders Procedure Category Date Status Time Cbc With Differential LAB 10/16/24 Complete 13:43 Blood Cult ZOILA 10/16/24 In Process 13:43 Urinalysis Profile LAB 10/16/24 Complete 13:43 Culture Urine ZOILA 10/16/24 In Process 13:43 Creatine Kinase, Total LAB 10/16/24 Complete 13:43 Troponin I High LAB 10/16/24 Complete Sensitivity 13:43 Lactic Acid LAB 10/16/24 Complete 13:43 Basic Metabolic Panel LAB 10/16/24 Complete 13:43 0.9%Nacl 1000ml (Ns PHA 10/16/24 Complete 1000ml) 14:00 B-Type Natriuretic LAB 10/16/24 Complete Peptide 13:43 Chest 1vw RAD 10/16/24 Resulted 13:43 Covid Rna Naat LAB 10/16/24 Complete 13:52 Influenza Type A & B, LAB 10/16/24 Complete Rapid 13:52 Group B Strep Pcr ZOILA 10/16/24 Logged 13:52 Acetaminophen 500mg PHA 10/16/24 Complete Tab (Tylenol 500mg T 14:00 12 Lead Ekg Tracing- EKG 10/16/24 Complete Technical 14:20 Ceftriaxone 1g Vial PHA 10/16/24 Verified (Rocephine 1g Inj) 16:30 Current Medications Medications (Trade) Dose Ordered Sig/Eliceo Route PRN Reason Start Time Stop Time Status Last Admin Dose Admin Acetaminophen (TYLenol 500MG TAB) 1,000 mg ONCE ONCE PO 10/16/24 14:00 10/16/24 14:01 DC 10/16/24 14:26 Sodium Chloride 1,000 ml @ 0 mls/hr ONCE ONCE IV 10/16/24 14:00 10/16/24 14:01 DC 10/16/24 14:26 Vital Signs Date Time Temp Pulse Resp B/P (MAP) Pulse Ox O2 Delivery O2 Flow Rate FiO2 10/16/24 15:55 98.4 75 24 139/44 96 Nasal Cannula* 2 28 10/16/24 13:42 97.9 130 16 92/47 99 Room Air 0 DX & DISP Disposition: Inpatient Decision to Admit Time: 16:02 Departure Impression: Primary Impression: SIRS (systemic inflammatory response syndrome) Additional Impression: Dehydration Condition: Stable Referrals: JOSTIN FRYE [employer] SUPER[employer] (PCP) CHIRAG [place] MD October 16, 2024 14:20
[2024-10-16 14:21] LABS: BASOPHILS # (AUTO) 0.04 K/uL (0.00-0.20); BASOPHILS % (AUTO) 0.3 % (0.0-5.0); EOSINOPHILS # (AUTO) 0.01 K/uL (0.00-0.70); EOSINOPHILS % (AUTO) 0.1 % (0.0-8.0); HEMATOCRIT 36.8 % (42-54); IMMATURE GRANULOCYTE ABSOLUTE 0.08 K/uL (0-1); LYMPHOCYTES # (AUTO) 0.9 K/uL (1.0-4.8); LYMPHOCYTES % (AUTO) 7.9 % (21.0-51.0); MEAN CORPUSCULAR HEMOGLOBIN 33.5 pg (27.0-33.0); MEAN CORPUSCULAR HGB CONC 34.5 g/dL (32.0-36.0); MEAN CORPUSCULAR VOLUME 97.1 fL (79-99); MONOCYTES # (AUTO) 0.7 K/uL (0.1-1.0); MONOCYTES % (AUTO) 5.9 % (3.0-13.0); NEUTROPHILS # (AUTO) 10.1 K/uL (1.8-7.7); NEUTROPHILS % (AUTO) 85.1 % (40.0-77.0); PLATELET COUNT (AUTO) 124 K/uL (130-400); RED BLOOD CELL COUNT(AUTO) 3.79 MIL/uL (4.50-6.20); RED CELL DISTRIBUTION WIDTH 12.9 % (11.0-15.5); WHITE BLOOD COUNT (AUTO) 11.9 K/uL (4.8-10.8)
[2024-10-16 14:22] LABS: CREATININE 1.4 mg/dL (0.5-1.3); POTASSIUM 3.8 mmol/L (3.5-5.1)
[2024-10-16] MEDS: acetaMINOPHEN 500 MG TABLET PO ONE (14:26)
[2024-10-16] MEDS: 0.9%NACL 1000ML 1,000 ML IV ONE (14:26)
--- NOTE | 2024-10-16 14:31 | EKG ---
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
[2024-10-16 14:41] LABS: B-TYPE NATRIURETIC PEPTIDE 150 pg/mL (0-100)
--- NOTE | 2024-10-16 14:55 | HMCIMG ---
CHEST 1VW HISTORY: Altered COMPARISON: 11/20/2023 FINDINGS: A frontal projection of the chest was obtained. Mild bilateral pulmonary infiltrates are seen may be related to mild pulmonary vascular congestion with possible superimposed pneumonitis. Poststernotomy changes are seen. The heart is enlarged. Degenerative changes of the thoracolumbar spine are present. Degenerative changes are seen. No evidence of aortic calcification is seen. IMPRESSION: 1. Bilateral pulmonary infiltrates are seen suggestive of pulmonary vascular congestion with possible superimposed pneumonitis.
[2024-10-16 15:02] LABS: APPEARANCE,URINE CLEAR (CLEAR); BILIRUBIN,URINE NEGATIVE (NEGATIVE); COLOR,URINE YELLOW (YELLOW); GLUCOSE, URINE (UA) >=1000 mg/dL (NEGATIVE); KETONES,URINE 10 mg/dL (NEGATIVE); LEUKOCYTE ESTERASE ,URINE NEGATIVE Leu/uL (NEGATIVE); NITRATE,URINE NEGATIVE (NEGATIVE); OCCULT BLOOD,URINE SMALL (NEGATIVE); PROTEIN,URINE NEGATIVE (NEGATIVE); UROBILINOGEN,URINE 3 mg/dL (0.2-1.0)
[2024-10-16 15:06] LABS: ADD UA MICROSCOPIC YES
[2024-10-16 15:07] LABS: BACTERIA,URINE RARE /HPF (None Seen); MUCUS,URINE RARE LPF (None Seen); YEAST,URINE BUDDING RARE /HPF (None Seen)
[2024-10-16 15:08] LABS: SARS-CoV-2, RNA, NAAT NEGATIVE SARS CoV-2 (NEGATIVE)
[2024-10-16 15:13] LABS: INFLUENZA TYPE A Negative For Type A (NEGATIVE); INFLUENZA TYPE B Negative For Type B (NEGATIVE)
[2024-10-16] MEDS ORDERED: cefTRIAXone 1G VIAL IVPB ONE (16:30)
[2024-10-16] MEDS ORDERED: PHARMACY COMMUNICATION MISC SCH (16:30)
[2024-10-16] MEDS: SODIUM CHLORIDE 3% FOR INHALATION 4 ML/AMP VIAL.NEB IH ONE (16:47)
[2024-10-16] MEDS: MEROPENEM 1GM 1 GM VIAL IVPB SCH (16:47)
[2024-10-16] MEDS: PANTOPrazole 40 MG/VIAL IVP SCH (16:48)
[2024-10-16] MEDS: 0.9%NACL 1000ML 1,000 ML IV SCH (16:48)
[2024-10-16 17:00] VITALS: PULSE 75; RESP 24; O2SAT 95
[2024-10-16 17:02] LABS: INR 1.15 (0.85-1.15)
[2024-10-16 17:03] LABS: PARTIAL THROMBOPLASTIN TIME 33.6 SEC (26.3-35.5)
--- NOTE | 2024-10-16 17:05 | NUR ---
CT EXAMS DELAY: SALES SERVICE REP WITH PATIENT. PER TECH, PATIENT WILL BE HAVING A TREATMENT.
[2024-10-16] MEDS: INSULIN humuLIN R 100 UNIT/ML 3ML SQ SCH (17:07)
[2024-10-16 17:08] LABS: HEMOGLOBIN A1C 7.7 % (4.0-6.0)
[2024-10-16 17:10] LABS: ABG BASE EXCESS -2.6 mmol/L (-2.0-3.0); ABG HCO3 22.1 mmol/L (21.0-28.0); ABG OXYGEN SATURATION 95.4 % (94.0-98.0); ABG PCO2 38 mmHg (35-48); ABG PH 7.383 (7.350-7.450); CARBON MONOXIDE 1.1 % (0.5-1.5); DEVICE COMMENT RBJUAN; HHb 4.5; PO2, ARTERIAL BG 83.1 mmHg (83.0-108.0); VENT MODE, BG NC (ROOM AIR)
[2024-10-16] MEDS: DOXYCYCLINE 100MG+NS 250ML 250 ML IV SCH (17:11)
[2024-10-16] MEDS: THIAMINE HCL 100 MG/ML 2ML VIAL IVP SCH (17:12)
[2024-10-16 17:20] LABS: ALBUMIN 2.8 g/dL (3.5-5.0); BILIRUBIN,DIRECT 1.8 mg/dL (0.0-0.3); BILIRUBIN,TOTAL 3.3 mg/dL (0.2-1.0); MAGNESIUM 2.7 mg/dL (1.80-2.40); THYROID STIMULATING HORMONE 0.89 uIU/mL (0.36-3.74)
--- NOTE | 2024-10-16 17:57 | HMCIMG ---
CT HEAD/BRAIN W/O CONTRAST CLINICAL HISTORY: fall, hist side of the face COMPARISON: None TECHNIQUE: Multiple sequential axial images of the head were obtained from the base of the skull through vertex. CT was performed with one or more of the following dose reduction techniques: automated exposure control, adjustment of the mA and/or kV according to patient size, or use of iterative reconstruction technique FINDINGS: There is advanced atrophy and small vessel disease. The orbital contents, paranasal sinuses and mastoid air cells are within normal limits. The calvarium is intact. IMPRESSION: There are no acute findings.
[2024-10-16] MEDS: BUDESONIDE 0.5 MG/2 ML INH IH SCH (18:00)
--- NOTE | 2024-10-16 18:07 | HMCIMG ---
CT CHEST W/O CONTRAST CLINICAL HISTORY: cough, resp failure, fever x 2 days, abnormal cxr COMPARISON: 11/16/2023 . TECHNIQUE: Multiple sequential axial images of the chest were obtained from the thoracic inlet through upper abdomen. CT was performed with one or more of the following dose reduction techniques: automated exposure control, adjustment of the mA and/or kV according to patient size, or use of iterative reconstruction technique FINDINGS: again demonstrated is bilateral bibasilar and peripheral honeycombing. There is superimposed groundglass opacification as well as an area of consolidation demonstrated in the right lower lobe. Mediastinum is free of pathologic lymphadenopathy. Again demonstrated is calcified coronary disease change prior CABG. The visualized intra-abdominal viscera is unremarkable for acute findings. There is mild diffuse degenerative changes spine and change prior median sternotomy. IMPRESSION: Bilateral groundglass opacification in right lower lobe area of consolidation most consistent with infiltrate superimposed on interstitial lung disease
[2024-10-16] MEDS: IpraTROPium 0.5 MG/2.5 ML INH IH SCH (18:43)
[2024-10-16 18:44] VITALS: PULSE 65; RESP 22
[2024-10-16 18:49] VITALS: PULSE 65; RESP 22; O2SAT 97
--- NOTE | 2024-10-16 19:09 | NUR ---
PT CARE ASSUMED AT THIS TIME
--- NOTE | 2024-10-16 20:36 | HP ---
[facility] HISTORY AND PHYSICAL Date of Service: October 16, 2024 Time of Service: 20:11 HISTORY OF PRESENT ILLNESS: Date of service: 10/16/2024, patient was seen in ER room 10 79-year-old male with underlying history hypertension, hyperlipidemia, type 2 diabetes mellitus, coronary artery disease with prior history of coronary artery bypass grafting in 2003, history of interstitial pulmonary fibrosis with bronchiectasis, [place] [facility] [place] who presented to the ER for further evaluation of productive cough, shortness of breath, fevers and chills. Symptoms have been ongoing for the past 2-3 days and patient's reports that patient has been having high-grade fever of greater than 102 F at home yesterday. Patient has been having dyspnea on exertion as well as malaise and lethargy. Oral intake has been poor. Patient was ambulating to the restroom today when he felt weak and per patient had a fall. Patient denies any syncopal episode. Denies any chest pain. Patient has not been taking any antibiotics as outpatient. Patient previously has known history of fibrotic lung disease with bronchiectasis and was hospitalized [place] [facility] [place]acquired [place] and UTI secondary to ESBL E coli in 11/2023. Patient has not seen a senior planning analyst as outpatient. On presentation to the hospital, patient was noted to be hypotensive, tachycardic with T-max of 97.9 F. [place] [address], hemoglobin 12.7, platelet count of 726232. CMP remarkable for sodium of 132, potassium 3.8, BUN of 24, creatinine 1.4, lactic acid of 2.7, procalcitonin of 1.44. Chest x-ray showed bilateral infiltrates concerning for pneumonia. Patient will be admitted for further treatment and management of severe sepsis, respiratory failure, developing community-acquired pneumonia in the setting of chronic lung disease with interstitial pulmonary fibrosis with bronchiectasis. REVIEW OF SYSTEMS CONSTITUTIONAL: Fevers, chills, malaise, poor oral intake NEUROLOGICAL: Denies headache, amaurosis fugax, motor weakness, sensory deficit, vertigo/spinning sensation, gait abnormalities, or tremors. ENT: No hearing loss, otalgia, otorrhea, rhinitis, rhinorrhea, hoarseness, or sore throat. CARDIOVASCULAR: Denies any exertional angina, dyspnea on exertion, orthopnea, paroxysmal nocturnal dyspnea, palpitations, life-threatening arrhythmias, claudication. PULMONARY: Productive cough, shortness of breath, dyspnea on exertion SLEEP: Denies morning headaches, daytime somnolence or napping. Denies difficulty falling asleep, staying asleep, waking from sleep. Denies knowledge of snoring. GASTROINTESTINAL: Denies any type of dysphagia to either liquids or solids. Denies nausea, vomiting, pyrosis, early satiety, abdominal pain, diarrhea, constipation, or changes in stool consistency or caliber. Denies coffee-ground emesis, hematemesis, hematochezia, or melanotic stools. GENITOURINARY: Denies frequency, urgency, nocturia, hematuria or incontinence (Storage/Irritative symptoms.) Low urinary stream, straining to void, urinary intermittency or hesitancy, splitting of the voiding stream, terminal dribbling. ENDOCRINOLOGIC: Denies polyuria, polydipsia, polyphagia or heat/cold intoleranc es. HEMATOLOGIC: Denies thrombophilia/previous clots, or coagulopathy/bleeding disorders. ONCOLOGIC: Denies personal history of malignancy. DERMATOLOGIC: Denies rashes or pruritus. PSYCHIATRIC: Denies any suicidal or homicidal ideation. Denies hallucinations. PAST MEDICAL HISTORY: Coronary artery disease, history of ischemic cardiomyopathy, hypertension, hyperlipidemia, history of bronchiectasis, history of pulmonary fibrosis, prior history of community-acquired pneumonia in 11/2023, type 2 diabetes mellitus PAST SURGICAL HISTORY: History of coronary artery bypass grafting in 2004, history of dorsal slit in 2013, history of prostate biopsy in 2019 PAST SOCIAL HISTORY: [ Denies smoking,drinks occasionally beer, denies drug use] FAMILY HISTORY: [ Lives with family] Allergies: No known drug allergies Home medications: Discussed with to bring list of home medications, no medications available at bedside to be reconciled Coded Allergies: No Known Drug Allergies (Verified Allergy, 08/18/13) PHYSICAL EXAM GENERAL APPEARANCE: The patient is awake, alert, and oriented, appears debilitated and frail NEUROLOGICAL: Cranial nerves II-XII grossly intact. Motor is 5/5 in bilateral upper and lower extremities proximal to distal. No sensory deficits. HEENT: Face is symmetric. Pupils are equal and reactive. Extraocular movements are intact. NECK: Supple. No JVD. No thyromegaly. No submental, submandibular, pre- /postauricular, occipital or supraclavicular lymphadenopathy. CHEST: Normal chest expansion. No Telemetry. LUNGS: Patient has fine crackles noted of bilateral lung bases with rhonchorous breath sounds, no active wheezing noted CARDIOVASCULAR: Regular. S1 and S2 normal. No appreciable rubs, murmurs or gallops. ABDOMEN: Soft, nontender, and nondistended. There is no rebound, voluntary guarding, or rigidity. : Deferred. No Davila. EXTREMITIES: Non-edematous and not cyanotic. No clubbing. Good capillary refill. SKIN: No skin breakdown. Vital Sign (Last 24 Hours) 10/16/24 19:41 Temp 98.8 Pulse 99 Resp 25 B/P (MAP) 132/62 Pulse Ox 95 O2 Delivery Nasal Cannula* O2 Flow Rate 2 FiO2 28 LABS: Laboratory: Test 10/16/24 17:17 10/16/24 17:09 10/16/24 16:59 10/16/24 14:40 Range/Units Whole Blood Ketones Quantitative 0.9 H 0.0-0.6 mmol/L Lactic Acid Level 1.7 0.8-2.5 mmol/L Blood Gas Specimen Type Arterial Arterial Blood pH 7.383 7.350-7.450 Arterial Blood Partial Pressure CO2 38 35-48 mmHg Arterial Blood Partial Pressure O2 83.1 83.0-108.0 mmHg Arterial Blood HCO3 22.1 21.0-28.0 mmol/L Arterial Blood Oxygen Saturation 95.4 94.0-98.0 % Arterial Blood Base Excess -2.6 L -2.0-3.0 mmol/L Hemoglobin (Blood Gas) 13.7 13.5-17.5 g/dL Sodium (Blood Gas) 136 136-145 MMOL/L Bedside Potassium (Blood Gas) 3.6 3.4-4.5 MMOL/L Bedside Chloride (Blood Gas) 105 98-107 MMOL/L Bedside Glucose (Blood Gas) 194 H 65-95 MG/DL Bedside Ionized Calcium (Blood Gas) 1.12 L 1.15-1.33 MMOL/L Bedside Lactic Acid (Blood Gas) 1.41 H 0.36-0.75 MMOL/L Blood Gas Temperature 37.0 35.5-37.0 CELSIUS Blood Gas Flow-by 2.00 0.00-15.00 L/min Blood Gas Vent Mode DC ROOM AIR FiO2 21.0 % Blood Gas Specimen Comment RBJUAN Whole Blood Glucose 188 H 70-110 MG/DL Urine Color YELLOW YELLOW Urine Appearance CLEAR CLEAR Urine pH 5.0 5.0-8.0 Urine Specific [place] 1.031 1.001-1.031 Urine Protein NEGATIVE NEGATIVE mg/dL Urine Glucose (UA) >=1000 H NEGATIVE mg/dL Urine Ketones 10 H NEGATIVE mg/dL Urine Occult Blood SMALL H NEGATIVE Urine Nitrate NEGATIVE NEGATIVE Urine Bilirubin NEGATIVE NEGATIVE mg/dL Urine Urobilinogen 3 H 0.2-1.0 mg/dL Urine Leukocyte Esterase NEGATIVE NEGATIVE Gina/uL Urine RBC 2-5 H 0-1 /HPF Urine WBC 2-5 H 0-1 /HPF Urine Bacteria RARE None Seen /HPF Urine Yeast RARE None Seen /HPF Test 10/16/24 14:30 10/16/24 14:01 Range/Units Influenza Type A Antigen Negative For Type A NEGATIVE Influenza Type B Antigen Negative For Type B NEGATIVE SARS-CoV-2, RNA, NAAT NEGATIVE SARS CoV-2 NEGATIVE White Blood Count 11.9 H 4.8-10.8 K/uL Red Blood Count 3.79 L 4.50-6.20 MIL/uL Hemoglobin 12.7 L 14.0-18.0 g/dL Hematocrit 36.8 L 42-54 % Mean Corpuscular Volume 97.1 79-99 fL Mean Corpuscular Hemoglobin 33.5 H 27.0-33.0 pg Mean Corpuscular Hemoglobin Concent 34.5 32.0-36.0 g/dL Red Cell Distribution Width 12.9 11.0-15.5 % Platelet Count 124 L 130-400 K/uL Mean Platelet Volume 11.7 H 7.5-10.5 fL Immature Granulocyte % (Auto) 0.7 0-1 % Neutrophils (%) (Auto) 85.1 H 40.0-77.0 % Lymphocytes (%) (Auto) 7.9 L 21.0-51.0 % Monocytes (%) (Auto) 5.9 3.0-13.0 % Eosinophils (%) (Auto) 0.1 0.0-8.0 % Basophils (%) (Auto) 0.3 0.0-5.0 % Neutrophils # (Auto) 10.1 H 1.8-7.7 K/uL Lymphocytes # (Auto) 0.9 L 1.0-4.8 K/uL Monocytes # (Auto) 0.7 0.1-1.0 K/uL Eosinophils # (Auto) 0.01 0.00-0.70 K/uL Basophils # (Auto) 0.04 0.00-0.20 K/uL Absolute Immature Granulocyte (auto 0.08 0-1 K/uL Nucleated Red Blood Cells 0.0 0.0-0.19 % White Cell Morphology Comment See comments Erythrocyte Sedimentation Rate 109 H 0-20 MM/HR Prothrombin Time 12.0 H 9.6-11.6 SEC Prothromb Time International Ratio 1.15 0.85-1.15 Activated Partial Thromboplast Time 33.6 26.3-35.5 SEC Sodium Level 132 L 136-145 mmol/L Potassium Level 3.8 3.5-5.1 mmol/L Chloride Level 99 L 101-111 mmol/L Carbon Dioxide Level 24 21-32 mmol/L Blood Urea Nitrogen 24 H 7-18 mg/dL Creatinine 1.4 H 0.5-1.3 mg/dL Glomerular Filtration Rate Calc 51 >90 mL/min Random Glucose 314 H 70-105 mg/dL Hemoglobin A1c 7.7 H 4.0-6.0 % Estimated Average Glucose (eAG) 174 H 70-126 mg/dL Total Calcium 8.3 L 8.5-10.1 mg/dL Magnesium Level 2.70 H 1.80-2.40 mg/dL Total Bilirubin 3.3 H 0.2-1.0 mg/dL Direct Bilirubin 1.8 H 0.0-0.3 mg/dL Aspartate Amino Transf (AST/SGOT) 32 10-37 U/L Alanine Aminotransferase (ALT/SGPT) 34 12-78 U/L Alkaline Phosphatase 125 50-136 U/L Total Creatine Kinase 70 # 21-232 U/L Troponin I High Sensitivity 20 4-75 ng/L C-Reactive Protein, Quantitative 240.00 H 0.5-3.0 mg/L B-Type Natriuretic Peptide 150 H 0-100 pg/mL Total Protein 7.0 6.0-8.3 g/dL Albumin 2.8 L 3.5-5.0 g/dL Procalcitonin 1.44 H 0.05-0.5 ng/mL Thyroid Stimulating Hormone (TSH) 0.89 0.36-3.74 uIU/mL Current Medications Medications (Trade) Dose Ordered Sig/Eliceo Route PRN Reason Start Time Stop Time Status Last Admin Dose Admin Acetaminophen (TYLenol 325MG TAB) 650 mg Q6H PRN PO MILD PAIN (1-3) 10/16/24 17:00 11/15/24 16:59 Budesonide (Pulmicort 0.5 Mg/2ml) 0.5 mg BIDRESP IH 10/16/24 16:30 11/15/24 16:29 10/16/24 18:43 0.5 MG Doxycycline Hyclate 250 ml @ 125 mls/hr Q12H IV 10/16/24 16:30 10/26/24 16:29 10/16/24 17:11 125 MLS/HR Guaifenesin/ Dextromethorphan (RobiTUSSin DM 200/20MG 10ML) 10 ml Q6H PRN PO COUGH 10/16/24 17:00 11/15/24 16:59 Insulin Glargine (LANtus 100 UNITS/ML 10 ML VIAL) 10 units HS SQ 10/16/24 21:00 11/15/24 20:59 Insulin Human Regular (humuLIN R 100 UNIT/ML 3ML) INSULIN SLIDING SCAL... ACHS SQ 10/16/24 16:30 11/15/24 16:29 10/16/24 17:07 2 UNIT Ipratropium [place] (AtrovENT UD) 0.5 mg D1PHITL IH 10/16/24 18:00 11/15/24 17:59 10/16/24 18:43 0.5 MG Meropenem (Merrem 1gm) 1 gm Q12H IVPB 10/16/24 16:30 10/26/24 16:29 10/16/24 16:47 1 GM Pantoprazole Sodium (PROTonix 40MG INJ) 40 mg Q24H IVP 10/16/24 16:30 11/15/24 16:29 10/16/24 16:48 40 MG Pharmacy Profile Note (Pharmacy Communication) 1 each ONCE MISC 10/16/24 16:30 10/16/24 16:29 DC Sodium Chloride 1,000 ml @ 75 mls/hr [id number] IV 10/16/24 16:30 11/15/24 16:29 10/16/24 16:48 75 MLS/HR Thiamine HCl (Vitamin B-1) 100 mg Q24H IVP 10/16/24 17:00 10/21/24 17:00 10/16/24 17:12 100 MG DIAGNOSTICS / RADIOLOGY: SERVICE 1633 REASON: cough, resp failure, fever x 2 days, abnormal cxr ORDERING PHYSICIAN: SANDER RODRÍGUEZ MD PROCEDURE: CHEST WO - CT CHEST W/O CONTRAST CT CHEST W/O CONTRAST CLINICAL HISTORY: cough, resp failure, fever x 2 days, abnormal cxr COMPARISON: 11/16/2023 . TECHNIQUE: Multiple sequential axial images of the chest were obtained from the thoracic inlet through upper abdomen. CT was performed with one or more of the following dose reduction techniques: automated exposure control, adjustment of the mA and/or kV according to patient size, or use of iterative reconstruction technique FINDINGS: again demonstrated is bilateral bibasilar and peripheral honeycombing. There is superimposed groundglass opacification as well as an area of consolidation demonstrated in the right lower lobe. Mediastinum is free of pathologic lymphadenopathy. Again demonstrated is calcified coronary disease change prior CABG. The visualized intra-abdominal viscera is unremarkable for acute findings. There is mild diffuse degenerative changes spine and change prior median sternotomy. IMPRESSION: Bilateral groundglass opacification in right lower lobe area of consolidation most consistent with infiltrate superimposed on interstitial lung disease DICTATED BY: VISHNU MORGAN DO DATE: 10/16/24 1800 ELECTRONICALLY SIGNED BY: VISHNU MORGAN DO DATE: 10/16/24 180 ASSESSMENT: Severe sepsis secondary to underlying community-acquired pneumonia, POA Acute hypoxemic respiratory failure, POA Multifocal community acquired pneumonia, POA Underlying history of interstitial pulmonary fibrosis, POA History of bronchiectasis, POA Lactic acidosis, POA Acute kidney injury, POA Status post fall, POA Hypovolemic hyponatremia, POA Hypotension, POA, resolving after fluid resuscitation Mild ketosis with history of Jardiance use as outpatient, POA History of multivessel coronary artery disease, POA History of ischemic cardiomyopathy, POA Uncontrolled type 2 diabetes mellitus, POA Hypertension, POA Hyperlipidemia, POA Debility/frailty, POA Moderate protein calorie malnutrition, POA PLAN: Patient will be admitted to cardiac telemetry floor Patient presenting with signs of severe sepsis with hypotension, acute kidney injury, respiratory failure with CT chest findings of bilateral consolidative pneumonia, patient with preexisting chronic lung disease with interstitial pulmonary fibrosis with bronchiectasis We will start broad-spectrum antibiotics with meropenem/doxycycline, patient has previous history of ESBL infection, antibiotics to be deescalated in 48-72 hours based on culture report Consultation with pulmonology will be requested Patient received 1 L of NS bolus in the ER, we will start maintenance IV fluid with normal saline at 75 mL/hour, monitor lactic acid trend closely, p.r.n. boluses, full sepsis bolus of fluid was not given due to underlying history of cardiomyopathy, history of [id number] LVH with diastolic dysfunction and risk of iatrogenic volume overload and worsening of respiratory status We will follow up respiratory culture, MRSA nasal screen, and pneumonia workup including mycoplasma, urine Legionella and streptococcal antigen testing We will start patient on scheduled Pulmicort and Atrovent We will reinstitute antihypertensives slowly in the next 24-48 hours once blood pressure stabilizes Maintain map greater than 65 We will follow up results of renal ultrasound, CT head showed no findings of acute intracranial bleed, patient did have a fall today and hit the left side of the head with the fall, denies any syncopal episodes We will follow up results of 2D echocardiogram We will request consultation with Physical therapy We will start patient on sliding scale insulin a.c. and HS, basal Lantus of 10 units daily, patient does have mild ketosis and takes Jardiance as outpatient, if blood ketones worsens or patient shows signs of euglycemic DKA, patient may need insulin drip, we will recheck labs tomorrow All labs will be repeated in the morning Discussed with family to bring list of home medications Date of service: 10/16/2024 Plan of care was discussed with patient and at bedside, Sander Rodríguez MD Advanced Care Planning: Which of the following were discussed: Hospice care: Yes __ No _X_ Therapeutic options: Yes _X_ No __ Advance directives: Yes _X_ No __ Other discussions: Discussed with who?: Patient Voluntary nature of this service was explained to the patient? Yes _x_ No __ Amount of time spent: 20 minutes SANDER RODRÍGUEZ MD October 16, 2024 20:36
[2024-10-16] MEDS: INSULIN GLARgine 100 UNITS/ML 10 ML VIAL SQ SCH (21:50)
--- NOTE | 2024-10-16 21:57 | NUR ---
PROVIDER DONTA AT BEDSIDE AT THIS TIME
--- NOTE | 2024-10-16 22:15 | NUR ---
PT PLACED ON A BEDSIDE COMMODE
[2024-10-16 23:10] VITALS: PULSE 85; RESP 18
[2024-10-17] VITALS (15 sets, daily range): BP systolic 117–138; BP diastolic 45–61; PULSE 69–105; RESP 18–24; TEMP 97.7–98.5; O2SAT 92–97
--- NOTE | 2024-10-17 00:31 | NUR ---
REPORT GIVEN TO DIMITRIS MERAZ AT THIS TIME
--- NOTE | 2024-10-17 01:00 | NUR ---
PT RECEIVED FROM ER VIA BED. PT AWAKE, ALERT, AND ORIENTED. DENIES CHEST PAIN OR DISCOMFORT, NO LABORED RESPIRATIONS. ORIENTED TO ROOM AND CALL LIGHT. PT DID NOT BRING HOME MEDICATIONS AND DOES NOT RECALL WHAT HE TAKES. PT STATES SPOUSE GLORIA TO BRING MEDICATIONS IN AM. PT MADE AWARE TO CALL STAFF WHEN NEEDING ASSISTANCE AND NOT TO GET OUT OF BED PER SELF, PT ACKNOWLEDGED INFORMATIONS. CALL LIGHT WITHIN REACH, BED ALARM ON
[2024-10-17] MEDS: guaiFENesin-DM 200/20MG 10ML PO PRN ×2 (01:42→08:33)
[2024-10-17 04:09] LABS: BASOPHILS # (AUTO) 0.02 K/uL (0.00-0.20); BASOPHILS % (AUTO) 0.2 % (0.0-5.0); EOSINOPHILS # (AUTO) 0.02 K/uL (0.00-0.70); EOSINOPHILS % (AUTO) 0.2 % (0.0-8.0); HEMATOCRIT 34.8 % (42-54); IMMATURE GRANULOCYTE ABSOLUTE 0.08 K/uL (0-1); LYMPHOCYTES # (AUTO) 1.4 K/uL (1.0-4.8); LYMPHOCYTES % (AUTO) 17.2 % (21.0-51.0); MEAN CORPUSCULAR HEMOGLOBIN 33.2 pg (27.0-33.0); MEAN CORPUSCULAR HGB CONC 34.2 g/dL (32.0-36.0); MEAN CORPUSCULAR VOLUME 97.2 fL (79-99); MONOCYTES # (AUTO) 0.6 K/uL (0.1-1.0); MONOCYTES % (AUTO) 7.1 % (3.0-13.0); NEUTROPHILS # (AUTO) 6.1 K/uL (1.8-7.7); NEUTROPHILS % (AUTO) 74.3 % (40.0-77.0); PLATELET COUNT (AUTO) 105 K/uL (130-400); RED BLOOD CELL COUNT(AUTO) 3.58 MIL/uL (4.50-6.20); WHITE BLOOD COUNT (AUTO) 8.3 K/uL (4.8-10.8)
[2024-10-17 04:22] LABS: ALBUMIN 2.2 g/dL (3.5-5.0); BILIRUBIN,TOTAL 1.6 mg/dL (0.2-1.0); CREATININE 0.8 mg/dL (0.5-1.3); MAGNESIUM 1.5 mg/dL (1.80-2.40); POTASSIUM 3.6 mmol/L (3.5-5.1)
--- NOTE | 2024-10-17 08:00 | NUR ---
HOME MEDS Patient did not present with his current home meds. Patient's spouse, Juliann, was called and notified and is pending to bring home meds after 0900 appointment. Patient states uses [facility] pharmacy on [address] in [place], [place]. Will reach out to [facility] for current medications.
[2024-10-17] MEDS: MAGNESIUM 2GM PREMIX 50ML 50 ML IV PRN (08:38)
--- NOTE | 2024-10-17 08:39 | HMCIMG ---
Exam Type: US RENAL SONOGRAM Clinical Information: SITA Comparison: None Findings: Examination shows normal renal size and echogenicity bilaterally. Preserved cortical thickness and corticomedullary junction region is seen. No hydronephrosis or calculi are seen. No renal masses are seen. There is no evidence of perinephric fluid on either side. No evidence of significant ureteral dilatation is seen. The right kidney measures 9.3 x 4.1 cm. The left kidney measures 9.6 x 3 cm. The urinary bladder is normal. No bladder masses, stones, or wall thickening is seen. IMPRESSION: Normal renal anatomy bilaterally.
--- NOTE | 2024-10-17 09:15 | NUR ---
HOME MEDS Spoke to pharmacist, Chu, at [facility] pharmacy and he is to send patient's home medication list. Pending to receive fax.
[2024-10-17] MEDS ORDERED: PoTASSium chloRIDE 20MEQ/100ML 100 ML IV PRN (10:30)
[2024-10-17] MEDS ORDERED: PoTASSium chl 10% ELIXIR 20MEQ 20 MEQ/15 ML UDCUP PO PRN (10:30)
[2024-10-17] MEDS: PoTASSium chloRIDE 20MEQ ER 20 MEQ ERTAB PO PRN (11:17)
[2024-10-17] MEDS ORDERED: FOLI1 PO (11:50)
[2024-10-17] MEDS ORDERED: ALBU2.5V2 NEB (11:50)
[2024-10-17] MEDS ORDERED: ALBU18HF7 IH (11:52)
[2024-10-17] MEDS ORDERED: FLUT1BLS15 IH (11:53)
--- NOTE | 2024-10-17 12:41 | HMCSR ---
APPROVED REPORT EXAM: Two-dimensional and M-mode echocardiogram with Doppler and color Doppler. INDICATION ICD: Assess for heart failure 2D Dimensions RVDd3.4 cmLVEF(%)41.0 (>50%)LVED Vol(simp.)73.0 mL IVSd2.0 (0.7-1.1cm)FS(%)19 %LVES Vol(simp.)35.0 mL LVDd3.3 (3.8-5.6cm)LA (2D)3.6 (1.6-4.0cm)LVEF(%, simp.)52 % PWd2.1 (0.7-1.1cm)Ao Root(2D)3.0 (2.0-3.7cm)LA ESV INDEX (BP)25.01 mL/m2 IVSs2.2 cmLVOT diam2.5 (1.8-2.4cm) LVDs2.7 (2.5-4.0cm) PWs2.1 cm Deformation Strain Apical 4-13.1 % Apical 2-11.1 % Apical 3-12.0 % Global Strain-12.1 % M-Mode Dimensions EPSS0.4 cm LA (MM)4.0 (1.6-4.0cm) Ao Root(MM)3.6 (2.0-3.7cm) Aortic Valve AoV Vmax1.5 m/Claudia Peak GR8.9 mmHgLVOT Vmax1.2 m/s AoV VTI0.2 mAo Mean GR4.9 mmHgLVOT VTI0.23 m PETRA (VMAX)4.77 cm2Al P1/2T530 msAVA (VTI) 4.8 cm2 Mitral Valve MV E Vmax49.2 cm/sDECEL Time71 ms MV A Rsgo461.2 cm/sP 1/2 T30 ms E/A ratio0.4MVA (PHT)7.4 cm2 TDI E/E' Logtrb14.5E/E' Lateral7.8 Medial E' Peak V4.27 cm/sLateral E' Peak V6.31 cm/s Pulmonary Valve PV Vmax1.2 m/sPV VTI0.19 mPV Mean GR3.3 mmHg PV Peak GR6.0 mmHg Tricuspid Valve TR Vmax3.2 m/sRVSP37.1 mmHg TR Peak GR40.5 mmHg Left Ventricle The left ventricle is normal size. GLS -12.0% Severe concentric left ventricular hypertrophy. LVEF is 50-55%. Stage I diastolic dysfunction. E/A flow is fused. Right Ventricle The right ventricle is normal size. Right ventricular systolic function is moderately to severely red uced. Atria The left atrium size is normal. The right atrium size is normal. Aortic Valve The aortic valve is normal in structure. Trace of aortic regurgitation is present. There is no aortic valvular stenosis. Mitral Valve The mitral valve is normal in structure. There is trace of mitral valve regurgitation noted. There is no mitral valve stenosis. Tricuspid Valve The tricuspid valve is normal in structure. There is mild tricuspid valve regurgitation noted. Pulmonic Valve The pulmonary valve is normal in structure. There is no pulmonic valvular regurgitation. Great Vessels The aortic root is normal in size. The IVC is normal in size and collapses >50% with inspiration. Pericardium There is no pericardial effusion. Other Information Quality : Adequate Conclusion Severe concentric left ventricular hypertrophy. LVEF is 50-55%. Stage I diastolic dysfunction. E/A flow is fused. GLS -12.0% There is trace of mitral valve regurgitation noted.
[2024-10-17] MEDS: acetaMINOPHEN 325 MG TAB PO PRN (14:51)
--- NOTE | 2024-10-17 15:24 | NUR ---
DCP Pt awake alert, oriented x3 lives with spouse Juliann Meyer [phone]. PCP is Cristian Mcgowan. Pt states he is independent, does not use any medical equipment, has not had home health or been to skilled facility. Anticipates discharge plan is for home. Addendum: 10/17/24 at 1529 by EILEEN BARAJAS RN CM Amended: Links added.
--- NOTE | 2024-10-17 16:26 | PN ---
[facility] PROGRESS NOTE Date of Service: October 17, 2024 Time of Service: 16:16 SUBJECTIVE: 79-year-old male with underlying history hypertension, hyperlipidemia, type 2 diabetes mellitus, coronary artery disease with prior history of coronary artery bypass grafting in 2003, history of interstitial pulmonary fibrosis with bronchiectasis, history of hospitalization in [facility] [place] in 11/2023 who presented to the ER for further evaluation of productive cough, shortness of breath, fevers and chills. Symptoms have been ongoing for the past 2-3 days and patient's reports that patient has been having high-grade fever of greater than 102 F at home yesterday. Patient has been having dyspnea on exertion as well as malaise and lethargy. O ral intake has been poor. Patient was ambulating to the restroom today when he felt weak and per patient had a fall. Patient denies any syncopal episode. Denies any chest pain. Patient has not been taking any antibiotics as outpatient. Patient previously has known history of fibrotic lung disease with bronchiectasis and was hospitalized in [facility] [place] community-acquired pneumonia and UTI secondary to ESBL E coli in 11/2023. On presentation to the hospital, patient was noted to be hypotensive, tachycard ic with T-max of 97.9 F. [place] [address], hemoglobin 12.7, platelet count of 585354. CMP remarkable for sodium of 132, potassium 3.8, BUN of 24, creatinine 1.4, lactic acid of 2.7, procalcitonin of 1.44. Chest x-ray showed bilateral infiltrates concerning for pneumonia. Patient will be admitted for further treatment and management of severe sepsis, respiratory failure, developing community-acquired pneumonia in the setting of chronic lung disease with interstitial pulmonary fibrosis with bronchiectasis. 10/17/2024: Patient seen resting on the bed. Patient states considerable improvement of his condition. His shortness of breath has improved and is currently on 2 L of oxygen. He is tolerating physical therapy well. CT chest showed Bilateral ground glass opacification in right lower lobe area of consolidation most consistent with infiltrate superimposed on interstitial lung disease. Excess Disease and pulmonology on board patient is being treated with IV Merrem and doxycycline currently. EKG shows regular and multiple premature complexes-ventricular paced. Pending discharge disposition. REVIEW OF SYSTEMS CONSTITUTIONAL: Fevers, chills, malaise, poor oral intake NEUROLOGICAL: Denies headache, amaurosis fugax, motor weakness, sensory deficit, vertigo/spinning sensation, gait abnormalities, or tremors. ENT: No hearing loss, otalgia, otorrhea, rhinitis, rhinorrhea, hoarseness, or sore throat. CARDIOVASCULAR: Denies any exertional angina, dyspnea on exertion, orthopnea, paroxysmal nocturnal dyspnea, palpitations, life-threatening arrhythmias, claudication. PULMONARY: Productive cough, shortness of breath, dyspnea on exertion SLEEP: Denies morning headaches, daytime somnolence or napping. Denies difficulty falling asleep, staying asleep, waking from sleep. Denies knowledge of snoring. GASTROINTESTINAL: Denies any type of dysphagia to either liquids or solids. Denies nausea, vomiting, pyrosis, early satiety, abdominal pain, diarrhea, constipation, or changes in stool consistency or caliber. Denies coffee-ground emesis, hematemesis, hematochezia, or melanotic stools. GENITOURINARY: Denies frequency, urgency, nocturia, hematuria or incontinence (Storage/Irritative symptoms.) Low urinary stream, straining to void, urinary intermittency or hesitancy, splitting of the voiding stream, terminal dribbling. ENDOCRINOLOGIC: Denies polyuria, polydipsia, polyphagia or heat/cold intolerances. HEMATOLOGIC: Denies thrombophilia/previous clots, or coagulopathy/bleeding disorders. ONCOLOGIC: Denies personal history of malignancy. DERMATOLOGIC: Denies rashes or pruritus. PSYCHIATRIC: Denies any suicidal or homicidal ideation. Denies hallucinations. PHYSICAL EXAM GENERAL APPEARANCE: The patient is awake, alert, and oriented, appears debilitated and frail NEUROLOGICAL: Cranial nerves II-XII grossly intact. Motor is 5/5 in bilateral upper and lower extremities proximal to distal. No sensory deficits. HEENT: Face is symmetric. Pupils are equal and reactive. Extraocular movements are intact. NECK: Supple. No JVD. No thyromegaly. No submental, submandibular, pre- /postauricular, occipital or supraclavicular lymphadenopathy. CHEST: Normal chest expansion. No Telemetry. LUNGS: Patient has fine crackles noted of bilateral lung bases with rhonchorous breath sounds, no active wheezing noted CARDIOVASCULAR: Regular. S1 and S2 normal. No appreciable rubs, murmurs or gallops. ABDOMEN: Soft, nontender, and nondistended. There is no rebound, voluntary guarding, or rigidity. : Deferred. No Davila. EXTREMITIES: Non-edematous and not cyanotic. No clubbing. Good capillary refill. SKIN: No skin breakdown. Vital Signs (last 8hr) Date Time Temp Pulse Resp B/P (MAP) Pulse Ox O2 Delivery O2 Flow Rate FiO2 10/17/24 13:03 98.1 97 18 117/57 92 Nasal Cannula 2.0 10/17/24 11:10 101 24 N/Cannula Low lpm 2.0 10/17/24 11:08 101 24 10/17/24 09:00 92 Nasal Cannula* 2 28 LABS: Laboratory: Test 10/17/24 12:54 10/17/24 03:36 10/16/24 20:14 10/16/24 17:17 Range/Units Whole Blood Glucose 104 70-110 MG/DL White Blood Count 8.3 # 4.8-10.8 K/uL Red Blood Count 3.58 L 4.50-6.20 MIL/uL Hemoglobin 11.9 L 14.0-18.0 g/dL Hematocrit 34.8 L 42-54 % Mean Corpuscular Volume 97.2 79-99 fL Mean Corpuscular Hemoglobin 33.2 H 27.0-33.0 pg Mean Corpuscular Hemoglobin Concent 34.2 32.0-36.0 g/dL Red Cell Distribution Width 13.0 11.0-15.5 % Platelet Count 105 L 130-400 K/uL Mean Platelet Volume 11.7 H 7.5-10.5 fL Immature Granulocyte % (Auto) 1.0 0-1 % Neutrophils (%) (Auto) 74.3 40.0-77.0 % Lymphocytes (%) (Auto) 17.2 L 21.0-51.0 % Monocytes (%) (Auto) 7.1 3.0-13.0 % Eosinophils (%) (Auto) 0.2 0.0-8.0 % Basophils (%) (Auto) 0.2 0.0-5.0 % Neutrophils # (Auto) 6.1 1.8-7.7 K/uL Lymphocytes # (Auto) 1.4 1.0-4.8 K/uL Monocytes # (Auto) 0.6 0.1-1.0 K/uL Eosinophils # (Auto) 0.02 0.00-0.70 K/uL Basophils # (Auto) 0.02 0.00-0.20 K/uL Absolute Immature Granulocyte (auto 0.08 0-1 K/uL Nucleated Red Blood Cells 0.0 0.0-0.19 % Sodium Level 140 136-145 mmol/L Potassium Level 3.6 3.5-5.1 mmol/L Chloride Level 107 101-111 mmol/L Carbon Dioxide Level 23 21-32 mmol/L Blood Urea Nitrogen 17 7-18 mg/dL Creatinine 0.8 0.5-1.3 mg/dL Glomerular Filtration Rate Calc 91 >90 mL/min Random Glucose 105 # 70-105 mg/dL Total Calcium 7.8 L 8.5-10.1 mg/dL Magnesium Level 1.50 L 1.80-2.40 mg/dL Total Bilirubin 1.6 #H 0.2-1.0 mg/dL Aspartate Amino Transf (AST/SGOT) 23 10-37 U/L Alanine Aminotransferase (ALT/SGPT) 25 # 12-78 U/L Alkaline Phosphatase 103 50-136 U/L Total Protein 6.0 6.0-8.3 g/dL Albumin 2.2 #L 3.5-5.0 g/dL Lactic Acid Level 1.8 0.8-2.5 mmol/L Whole Blood Ketones Quantitative 0.9 H 0.0-0.6 mmol/L Test 10/16/24 17:09 10/16/24 14:40 10/16/24 14:30 10/16/24 14:01 Range/Units Blood Gas Specimen Type Arterial Arterial Blood pH 7.383 7.350-7.450 Arterial Blood Partial Pressure CO2 38 35-48 mmHg Arterial Blood Partial Pressure O2 83.1 83.0-108.0 mmHg Arterial Blood HCO3 22.1 21.0-28.0 mmol/L Arterial Blood Oxygen Saturation 95.4 94.0-98.0 % Arterial Blood Base Excess -2.6 L -2.0-3.0 mmol/L Hemoglobin (Blood Gas) 13.7 13.5-17.5 g/dL Sodium (Blood Gas) 136 136-145 MMOL/L Bedside Potassium (Blood Gas) 3.6 3.4-4.5 MMOL/L Bedside Chloride (Blood Gas) 105 98-107 MMOL/L Bedside Glucose (Blood Gas) 194 H 65-95 MG/DL Bedside Ionized Calcium (Blood Gas) 1.12 L 1.15-1.33 MMOL/L Bedside Lactic Acid (Blood Gas) 1.41 H 0.36-0.75 MMOL/L Blood Gas Temperature 37.0 35.5-37.0 CELSIUS Blood Gas Flow-by 2.00 0.00-15.00 L/min Blood Gas Vent Mode NC ROOM AIR FiO2 21.0 % Blood Gas Specimen Comment RBJUAN Urine Color YELLOW YELLOW Urine Appearance CLEAR CLEAR Urine pH 5.0 5.0-8.0 Urine Specific Bastian 1.031 1.001-1.031 Urine Protein NEGATIVE NEGATIVE mg/dL Urine Glucose (UA) >=1000 H NEGATIVE mg/dL Urine Ketones 10 H NEGATIVE mg/dL Urine Occult Blood SMALL H NEGATIVE Urine Nitrate NEGATIVE NEGATIVE Urine Bilirubin NEGATIVE NEGATIVE mg/dL Urine Urobilinogen 3 H 0.2-1.0 mg/dL Urine Leukocyte Esterase NEGATIVE NEGATIVE Gina/uL Urine RBC 2-5 H 0-1 /HPF Urine WBC 2-5 H 0-1 /HPF Urine Bacteria RARE None Seen /HPF Urine Yeast RARE None Seen /HPF Influenza Type A Antigen Negative For Type A NEGATIVE Influenza Type B Antigen Negative For Type B NEGATIVE SARS-CoV-2, RNA, NAAT NEGATIVE SARS CoV-2 NEGATIVE White Cell Morphology Comment See comments Erythrocyte Sedimentation Rate 109 H 0-20 MM/HR Prothrombin Time 12.0 H 9.6-11.6 SEC Prothromb Time International Ratio 1.15 0.85-1.15 Activated Partial Thromboplast Time 33.6 26.3-35.5 SEC Hemoglobin A1c 7.7 H 4.0-6.0 % Estimated Average Glucose (eAG) 174 H 70-126 mg/dL Direct Bilirubin 1.8 H 0.0-0.3 mg/dL Total Creatine Kinase 70 # 21-232 U/L Troponin I High Sensitivity 20 4-75 ng/L C-Reactive Protein, Quantitative 240.00 H 0.5-3.0 mg/L B-Type Natriuretic Peptide 150 H 0-100 pg/mL Procalcitonin 1.44 H 0.05-0.5 ng/mL Thyroid Stimulating Hormone (TSH) 0.89 0.36-3.74 uIU/mL Current Medications Medications (Trade) Dose Ordered Sig/Eliceo Route PRN Reason Start Time Stop Time Status Last Admin Dose Admin Acetaminophen (TYLenol 325MG TAB) 650 mg Q6H PRN PO MILD PAIN (1-3) 10/16/24 17:00 11/15/24 16:59 10/17/24 14:51 650 MG Budesonide (Pulmicort 0.5 Mg/2ml) 0.5 mg BIDRESP IH 10/16/24 16:30 11/15/24 16:29 10/17/24 06:19 0.5 MG Doxycycline Hyclate 250 ml @ 125 mls/hr Q12H IV 10/16/24 16:30 10/26/24 16:29 10/17/24 03:35 125 MLS/HR Guaifenesin/ Dextromethorphan (RobiTUSSin DM 200/20MG 10ML) 10 ml Q6H PRN PO COUGH 10/16/24 17:00 10/17/24 05:47 DC 10/17/24 01:42 10 ML Guaifenesin/ Dextromethorphan (RobiTUSSin DM 200/20MG 10ML) 15 ml Q4H4 PRN PO COUGH 10/17/24 06:00 11/16/24 05:59 10/17/24 08:33 15 ML Insulin Glargine (LANtus 100 UNITS/ML 10 ML VIAL) 10 units HS SQ 10/16/24 21:00 11/15/24 20:59 10/16/24 21:50 10 UNITS Insulin Human Regular (humuLIN R 100 UNIT/ML 3ML) INSULIN SLIDING SCAL... ACHS SQ 10/16/24 16:30 11/15/24 16:29 10/16/24 17:07 2 UNIT Ipratropium [place] (AtrovENT UD) 0.5 mg [id number] IH 10/16/24 18:00 11/15/24 17:59 10/17/24 11:08 0.5 MG Magnesium Sulfate 50 ml @ 0 mls/hr PROTOCOL PRN IV MAGNESIUM PROTOCOL 10/17/24 07:30 11/16/24 07:29 10/17/24 08:38 25 MLS/HR Meropenem (Merrem 1gm) 1 gm Q12H IVPB 10/16/24 16:30 10/26/24 16:29 10/17/24 05:21 1 GM Pantoprazole Sodium (PROTonix 40MG INJ) 40 mg Q24H IVP 10/16/24 16:30 11/15/24 16:29 10/16/24 16:48 40 MG Pharmacy Profile Note (Pharmacy Communication) 1 each ONCE MISC 10/16/24 16:30 10/16/24 16:29 DC Potassium Chloride 100 ml @ 100 mls/hr AD PRN IV POTASSIUM PROTOCOL 10/17/24 10:30 11/16/24 10:29 Potassium Chloride (K-Dur/Klor-Con 20meq) 20 meq AD PRN PO POTASSIUM PROTOCOL 10/17/24 10:30 11/16/24 10:29 10/17/24 14:50 20 MEQ Potassium Chloride (KCl 10% Elixir 20meq/15ml) 20 meq AD PRN PO POTASSIUM PROTOCOL 10/17/24 10:30 11/16/24 10:29 Sodium Chloride 1,000 ml @ 75 mls/hr [id number] IV 10/16/24 16:30 11/15/24 16:29 10/16/24 16:48 75 MLS/HR Thiamine HCl (Vitamin B-1) 100 mg Q24H IVP 10/16/24 17:00 10/21/24 17:00 10/16/24 17:12 100 MG DIAGNOSTICS / RADIOLOGY: [ ] ASSESSMENT: Severe sepsis secondary to underlying community-acquired pneumonia, POA Acute hypoxemic respiratory failure, POA Multifocal community acquired pneumonia, POA Underlying history of interstitial pulmonary fibrosis, POA History of bronchiectasis, POA Lactic acidosis, POA Acute kidney injury, POA Status post fall, POA Hypovolemic hyponatremia, POA Hypotension, POA, resolving after fluid resuscitation Mild ketosis with history of Jardiance use as outpatient, POA Moderate protein calorie malnutrition, POA Chronic problem History of multivessel coronary artery disease, POA History of ischemic cardiomyopathy, POA Uncontrolled type 2 diabetes mellitus, POA Hypertension, POA Hyperlipidemia, POA Debility/frailty, POA PLAN: Patient will be admitted to cardiac telemetry floor Patient presenting with signs of severe sepsis with hypotension, acute kidney injury, respiratory failure with CT chest findings of bilateral consolidative pneumonia, patient with preexisting chronic lung disease with interstitial pulmonary fibrosis with bronchiectasis We will start broad-spectrum antibiotics with meropenem/doxycycline, patient has previous history of ESBL infection, antibiotics to be deescalated in 48-72 hours based on culture report -sputum culture growing Gram-positive cocci in clusters. Consultation with pulmonology will be requested Patient received 1 L of NS bolus in the ER, we will start maintenance IV fluid with normal saline at 75 mL/hour, monitor lactic acid trend closely, p.r.n. boluses, full sepsis bolus of fluid was not given due to underlying history of cardiomyopathy, history of [id number] LVH with diastolic dysfunction and risk of iatrogenic volume overload and worsening of respiratory status We will follow up respiratory culture, MRSA nasal screen, and pneumonia workup including mycoplasma, urine Legionella and streptococcal antigen testing We will start patient on scheduled Pulmicort and Atrovent We will reinstitute antihypertensives slowly in the next 24-48 hours once blood pressure stabilizes Maintain map greater than 65 We will follow up results of renal ultrasound, CT head showed no findings of acute intracranial bleed, patient did have a fall today and hit the left side of the head with the fall, denies any syncopal episodes We will follow up results of 2D echocardiogram We will request consultation with Physical therapy We will start patient on sliding scale insulin a.c. and HS, basal Lantus of 10 units daily, patient does have mild ketosis and takes Jardiance as outpatient, if blood ketones worsens or patient shows signs of euglycemic DKA, patient may need insulin drip, we will recheck labs tomorrow All labs will be repeated in the morning Discussed with family to bring list of home medications Date of service: 10/16/2024 Plan of care was discussed with patient and at bedside, Sander Rodríguez MD Advanced Care Planning: Which of the following were discussed: Hospice care: Yes __ No _X_ Therapeutic options: Yes _X_ No __ Advance directives: Yes _X_ No __ Other discussions: Discussed with who?: Patient Voluntary nature of this service was explained to the patient? Yes _x_ No __ Amount of time spent: 20 minutes ATTESTATION BY PHYSICIAN I have seen and examined the patient. I reviewed the documentation, medical decision making, and treatment plan as noted by the resident provider above. I agree with the findings and plan of care. Musa Sierra MD, ANCHU A MD May 5, 2025 16:26
--- NOTE | 2024-10-17 17:42 | PN ---
[facility] PROGRESS NOTE Date Patient Seen: October 17, 2024 Time of Visit: 17:42 Supervising Physician: Dr. Mosley Primary Care Physician: [ ] Outpatient Specialists: [ ] Inpatient Consults: [ ] PROBLEM LIST: Acute hypoxic respiratory failure, POA Community-acquired pneumonia, POA Congestive heart failure, POA LVEF of 50-55% per 2D echo 10/17/2024 Stage I diastolic dysfunction per 2D echo 10/17/2024 Severe concentric left ventricular hypertrophy Concern for interstitial lung disease Acute kidney injury, POA Lactic acidosis, POA DM type 2, POA Hyperlipidemia, POA Hypertension, POA History of CAD s/p CABG INTERVAL HISTORY: 10/17/2024: At the time of my evaluation, the patient was sitting up to the bedside chair. The staff nurse reports no acute events overnight. The patient remains and is on nasal cannula he is tachycardic, tachypneic and normotensive laboratory data today showed resolved leukocytosis with a WBC count today of 8.3 H&H and platelet count stable. Chemistry panel was notable faecium of five and a total bili of 1.6. Imaging of the chest was concerning for interstitial lung disease. 2D echo results showed severe concentric left ventricular hypertrophy, LVEF of 50-55% with a stage I diastolic dysfunction. The patient is currently on antibiotic coverage with Merrem and doxycycline. No other complaint. REVIEW OF SYSTEMS: 12 point ROS reviewed with patient. Pertinent positives mentioned above. Otherwise negative. PHYSICAL EXAM: GENERAL: alert, weak, awake oriented x 3 HEENT: EOMI, Sclera non icteric, moist mucosa NECK: Supple, no JVD, trachea midline LUNGS: Clear breath sounds bilaterally. No wheezes HEART: Regular rate and rhythm. Normal S1 and S2, without murmurs ABD: Abdomen soft, nontender. Bowel sounds present EXT: No clubbing cyanosis or edema NEURO: Alert and oriented to person, follows commands Vital Signs (last 8hr) Date Time Temp Pulse Resp B/P (MAP) Pulse Ox O2 Delivery O2 Flow Rate FiO2 10/17/24 16:32 98.1 94 18 128/61 93 Nasal Cannula 2.0 10/17/24 13:03 98.1 97 18 117/57 92 Nasal Cannula 2.0 10/17/24 11:10 101 24 N/Cannula Low lpm 2.0 10/17/24 11:08 101 24 LABS: Hematology Labs: Test 10/17/24 03:36 10/16/24 14:01 Range/Units White Blood Count 8.3 # 4.8-10.8 K/uL Red Blood Count 3.58 L 4.50-6.20 MIL/uL Hemoglobin 11.9 L 14.0-18.0 g/dL Hematocrit 34.8 L 42-54 % Mean Corpuscular Volume 97.2 79-99 fL Mean Corpuscular Hemoglobin 33.2 H 27.0-33.0 pg Mean Corpuscular Hemoglobin Concent 34.2 32.0-36.0 g/dL Red Cell Distribution Width 13.0 11.0-15.5 % Platelet Count 105 L 130-400 K/uL Mean Platelet Volume 11.7 H 7.5-10.5 fL Immature Granulocyte % (Auto) 1.0 0-1 % Neutrophils (%) (Auto) 74.3 40.0-77.0 % Lymphocytes (%) (Auto) 17.2 L 21.0-51.0 % Monocytes (%) (Auto) 7.1 3.0-13.0 % Eosinophils (%) (Auto) 0.2 0.0-8.0 % Basophils (%) (Auto) 0.2 0.0-5.0 % Neutrophils # (Auto) 6.1 1.8-7.7 K/uL Lymphocytes # (Auto) 1.4 1.0-4.8 K/uL Monocytes # (Auto) 0.6 0.1-1.0 K/uL Eosinophils # (Auto) 0.02 0.00-0.70 K/uL Basophils # (Auto) 0.02 0.00-0.20 K/uL Absolute Immature Granulocyte (auto 0.08 0-1 K/uL Nucleated Red Blood Cells 0.0 0.0-0.19 % White Cell Morphology Comment See comments Erythrocyte Sedimentation Rate 109 H 0-20 MM/HR Chemistry Labs: Test 10/17/24 12:54 10/17/24 03:36 10/16/24 20:14 10/16/24 17:17 Range/Units Whole Blood Glucose 104 70-110 MG/DL Sodium Level 140 136-145 mmol/L Potassium Level 3.6 3.5-5.1 mmol/L Chloride Level 107 101-111 mmol/L Carbon Dioxide Level 23 21-32 mmol/L Blood Urea Nitrogen 17 7-18 mg/dL Creatinine 0.8 0.5-1.3 mg/dL Glomerular Filtration Rate Calc 91 >90 mL/min Random Glucose 105 # 70-105 mg/dL Total Calcium 7.8 L 8.5-10.1 mg/dL Magnesium Level 1.50 L 1.80-2.40 mg/dL Total Bilirubin 1.6 #H 0.2-1.0 mg/dL Aspartate Amino Transf (AST/SGOT) 23 10-37 U/L Alanine Aminotransferase (ALT/SGPT) 25 # 12-78 U/L Alkaline Phosphatase 103 50-136 U/L Total Protein 6.0 6.0-8.3 g/dL Albumin 2.2 #L 3.5-5.0 g/dL Lactic Acid Level 1.8 0.8-2.5 mmol/L Whole Blood Ketones Quantitative 0.9 H 0.0-0.6 mmol/L Test 10/16/24 14:01 Range/Units Hemoglobin A1c 7.7 H 4.0-6.0 % Estimated Average Glucose (eAG) 174 H 70-126 mg/dL Direct Bilirubin 1.8 H 0.0-0.3 mg/dL Total Creatine Kinase 70 # 21-232 U/L Troponin I High Sensitivity 20 4-75 ng/L C-Reactive Protein, Quantitative 240.00 H 0.5-3.0 mg/L B-Type Natriuretic Peptide 150 H 0-100 pg/mL Procalcitonin 1.44 H 0.05-0.5 ng/mL Thyroid Stimulating Hormone (TSH) 0.89 0.36-3.74 uIU/mL Coagulation Labs: Test 10/16/24 14:01 Range/Units Prothrombin Time 12.0 H 9.6-11.6 SEC Prothromb Time International Ratio 1.15 0.85-1.15 Activated Partial Thromboplast Time 33.6 26.3-35.5 SEC DIAGNOSTICS / RADIOLOGY RESULTS: [ ] PLAN 10/17/2024: For now, we are going to continue current management for the patient. We will continue on antibiotic therapy as ordered. Because of the concern for interstitial lung disease, I am going to order inflammatory markers, autoimmune/rheumatologic panel. The patient will remain on oxygen supplementation via nasal cannula and we will adjust as necessary. I discussed the findings and plan for further management with the patient. We will monitor the patient's progress and response to management. We will continue to provide general supportive care, GI and DVT prophylaxis. Further orders per attending MD and hospital course. NEURO: Minimize central acting medications as possible. Maintain fall precautions, adequate lighting during the day PULMONARY: Supplemental 02 as needed. Maintain aspiration precautions at all times CARDIOVASCULAR: Follow hemodynamics. Vital signs per facility protocol GI & NUTRITION: Continue with nutritional support. Continue stool softeners and laxatives as needed. KIDNEYS & ELECTROLYTES: Strict monitoring of intake, output and overall fluid balance. Avoid nephrotoxic medications to the extent possible. Medications to be dosed according to renal function. Monitor electrolytes and replace as needed ENDOCRINE: Maintain blood glucose between 100-180 at all times. Hypoglycemia protocol in place INFECTIOUS DISEASE: Trend temperature, WBC and procalcitonin level Follow cultures, deescalate antibiotics as soon as possible. Panculture if new onset fever ONCOLOGY/HEMATOLOGY/COAGULATION: Monitor for s/s of bleeding Monitor hemoglobin, coagulation studies as needed SKIN: Pressure ulcer prevention per facility protocol Specialty mattress ORTHO/REHAB: Continue PT/OT Prophylaxis: Continue GI and DVT prophylaxis Code Status: Full Resuscitation Disposition: TBD Other: I personally spent 40 minutes of critical care time in treatment of this patient. This includes patient management, time at bedside, time reviewing tests, labs, appropriate images and studies, documentation, and patient care coordination. This time excludes separately billable procedures. MICHAEL QUISPE [employer] October 17, 2024 17:42
--- NOTE | 2024-10-17 17:47 | CONS ---
[facility] CONSULTATION NOTE Date Patient Seen: October 16, 2024 Time of Visit: 2044 Supervising Physician: Deven Tee Reason for Consultation: Acute Hypoxic Respiratory Failure Consulting Physician: Dr Rodríguez Outpatient Specialists: [ ] Inpatient Consults: [ ] PROBLEM LIST: Acute hypoxic respiratory failure, POA Community-acquired pneumonia, POA Suspected congestive heart failure, POA Acute kidney injury, POA Lactic acidosis, POA DM type 2, POA Hyperlipidemia, POA Hypertension, POA History of CAD s/p CABG PLAN: Admit per primary Continue O2 therapy Keep head of bed above 30 Consider diuretics if continues to have high oxygen demand DuoNeb q.6 Incentive spirometry Antibiotic management per primary Follow up culture results Recommend 2D echo Rest of plan care of primary/cardiology HPI: 79-year-old male with past medical history of hypertension, hyperlipidemia, type 2 diabetes mellitus, coronary artery disease with prior history of coronary artery bypass grafting in 2003 who presented to ED with complaint of productive cough, shortness of breath, fevers and chills and found to have acute hypoxic respiratory failure, community-acquired pneumonia, and possible congestive heart failure. Per report his symptoms has been ongoing for the past 2-3 days. Today patient was also noted to have high-grade fever prompting ER visit. On initial evaluation in ED patient was noted to have low systolic blood pressure, and heart rate above 100 with T-max of 97.9 F. Patient was subseq uently started on IV fluids with significant improvement on his blood pressure. In ED his [place] [address], hemoglobin 12.7, platelet count of 622349. His chemistry is remarkable for BUN of 24, creatinine 1.4, lactic acid of 2.7, procalcitonin of 1.44. Chest x-ray showed bilateral infiltrates concerning for possible pneumonia. [facility] pulmonology is consulted for evaluation of pneumonia and acute hypoxic respiratory failure. Patient was seen and examined in ED with present at bedside. At present patient is currently on O2 therapy the with appropriate oxygen saturation, normal sinus rhythm on the monitor, with adequate systolic blood pressure. Patient denies any headache, chest pain, back pain, fever, abdominal pain, but complains of mild shortness of breath, there is also scattered rales on auscultation on both lung shelley, with associated bilateral lower extremity 2+ pitting edema. Patient is an ex-smoker, drinks alcohol occasionally, and denies any illicit drug use. Patient is not vaccinated against COVID virus and does not take flu shot. PAST MEDICAL HX: see above PAST SURGICAL HX: noncontributory SOCIAL HISTORY: See HPI Coded Allergies: No Known Drug Allergies (Verified Allergy, 08/18/13) REVIEW OF SYSTEMS: 12 point ROS reviewed with patient. Pertinent positives mentioned above. Otherwise negative. PHYSICAL EXAM: GENERAL: alert, weak, awake oriented x 3 HEENT: EOMI, Sclera non icteric, moist mucosa NECK: Supple, no JVD, trachea midline LUNGS: Scattered rales on auscultation HEART: Regular rate and rhythm. Normal S1 and S2, without murmurs ABD: Abdomen soft, nontender. Bowel sounds present EXT: No clubbing cyanosis 2+ bilateral lower extremity edema NEURO: Alert and oriented to person, follows commands Vital Signs (last 8hr) Date Time Temp Pulse Resp B/P (MAP) Pulse Ox O2 Delivery O2 Flow Rate FiO2 10/17/24 16:32 98.1 94 18 128/61 93 Nasal Cannula 2.0 10/17/24 13:03 98.1 97 18 117/57 92 Nasal Cannula 2.0 10/17/24 11:10 101 24 N/Cannula Low lpm 2.0 10/17/24 11:08 101 24 LABS: Hematology Labs: Test 10/17/24 03:36 10/16/24 14:01 Range/Units White Blood Count 8.3 # 4.8-10.8 K/uL Red Blood Count 3.58 L 4.50-6.20 MIL/uL Hemoglobin 11.9 L 14.0-18.0 g/dL Hematocrit 34.8 L 42-54 % Mean Corpuscular Volume 97.2 79-99 fL Mean Corpuscular Hemoglobin 33.2 H 27.0-33.0 pg Mean Corpuscular Hemoglobin Concent 34.2 32.0-36.0 g/dL Red Cell Distribution Width 13.0 11.0-15.5 % Platelet Count 105 L 130-400 K/uL Mean Platelet Volume 11.7 H 7.5-10.5 fL Immature Granulocyte % (Auto) 1.0 0-1 % Neutrophils (%) (Auto) 74.3 40.0-77.0 % Lymphocytes (%) (Auto) 17.2 L 21.0-51.0 % Monocytes (%) (Auto) 7.1 3.0-13.0 % Eosinophils (%) (Auto) 0.2 0.0-8.0 % Basophils (%) (Auto) 0.2 0.0-5.0 % Neutrophils # (Auto) 6.1 1.8-7.7 K/uL Lymphocytes # (Auto) 1.4 1.0-4.8 K/uL Monocytes # (Auto) 0.6 0.1-1.0 K/uL Eosinophils # (Auto) 0.02 0.00-0.70 K/uL Basophils # (Auto) 0.02 0.00-0.20 K/uL Absolute Immature Granulocyte (auto 0.08 0-1 K/uL Nucleated Red Blood Cells 0.0 0.0-0.19 % White Cell Morphology Comment See comments Erythrocyte Sedimentation Rate 109 H 0-20 MM/HR Chemistry Labs: Test 10/17/24 12:54 10/17/24 03:36 10/16/24 20:14 10/16/24 17:17 Range/Units Whole Blood Glucose 104 70-110 MG/DL Sodium Level 140 136-145 mmol/L Potassium Level 3.6 3.5-5.1 mmol/L Chloride Level 107 101-111 mmol/L Carbon Dioxide Level 23 21-32 mmol/L Blood Urea Nitrogen 17 7-18 mg/dL Creatinine 0.8 0.5-1.3 mg/dL Glomerular Filtration Rate Calc 91 >90 mL/min Random Glucose 105 # 70-105 mg/dL Total Calcium 7.8 L 8.5-10.1 mg/dL Magnesium Level 1.50 L 1.80-2.40 mg/dL Total Bilirubin 1.6 #H 0.2-1.0 mg/dL Aspartate Amino Transf (AST/SGOT) 23 10-37 U/L Alanine Aminotransferase (ALT/SGPT) 25 # 12-78 U/L Alkaline Phosphatase 103 50-136 U/L Total Protein 6.0 6.0-8.3 g/dL Albumin 2.2 #L 3.5-5.0 g/dL Lactic Acid Level 1.8 0.8-2.5 mmol/L Whole Blood Ketones Quantitative 0.9 H 0.0-0.6 mmol/L Test 10/16/24 14:01 Range/Units Hemoglobin A1c 7.7 H 4.0-6.0 % Estimated Average Glucose (eAG) 174 H 70-126 mg/dL Direct Bilirubin 1.8 H 0.0-0.3 mg/dL Total Creatine Kinase 70 # 21-232 U/L Troponin I High Sensitivity 20 4-75 ng/L C-Reactive Protein, Quantitative 240.00 H 0.5-3.0 mg/L B-Type Natriuretic Peptide 150 H 0-100 pg/mL Procalcitonin 1.44 H 0.05-0.5 ng/mL Thyroid Stimulating Hormone (TSH) 0.89 0.36-3.74 uIU/mL Coagulation Labs: Test 10/16/24 14:01 Range/Units Prothrombin Time 12.0 H 9.6-11.6 SEC Prothromb Time International Ratio 1.15 0.85-1.15 Activated Partial Thromboplast Time 33.6 26.3-35.5 SEC DIAGNOSTICS / RADIOLOGY RESULTS: CHEST 1VW HISTORY: Altered COMPARISON: 11/20/2023 FINDINGS: A frontal projection of the chest was obtained. Mild bilateral pulmonary infiltrates are seen may be related to mild pulmonary vascular congestion with possible superimposed pneumonitis. Poststernotomy changes are seen. The heart is enlarged. Degenerative changes of the thoracolumbar spine are present. Degenerative changes are seen. No evidence of aortic calcification is seen. IMPRESSION: 1. Bilateral pulmonary infiltrates are seen suggestive of pulmonary vascular congestion with possible superimposed pneumonitis. PLAN NEURO: Minimize central acting medications as possible. Maintain fall precautions, adequate lighting during the day PULMONARY: Supplemental 02 as needed. Maintain aspiration precautions at all times CARDIOVASCULAR: Follow hemodynamics. Vital signs per facility protocol GI & NUTRITION: Continue with nutritional support. Continue stool softeners and laxatives as needed. KIDNEYS & ELECTROLYTES: Strict monitoring of intake, output and overall fluid balance. Avoid nephrotoxic medications to the extent possible. Medications to be dosed according to renal function. Monitor electrolytes and replace as needed ENDOCRINE: Maintain blood glucose between 100-180 at all times. Hypoglycemia protocol in place INFECTIOUS DISEASE: Trend temperature, WBC and procalcitonin level Follow cultures, deescalate antibiotics as soon as possible. Panculture if new onset fever ONCOLOGY/HEMATOLOGY/COAGULATION: Monitor for s/s of bleeding Monitor hemoglobin, coagulation studies as needed SKIN: Pressure ulcer prevention per facility protocol Specialty mattress ORTHO/REHAB: Continue PT/OT Prophylaxis: Continue GI and DVT prophylaxis Code Status: Full Resuscitation Disposition: TBD Other: Total patient care time exceeds 35 minutes excluding all procedures. Supervising Physicians: DONTA Adair PRESCHOOL ASSISTANT DIRECTOR October 17, 2024 17:47
[2024-10-17 20:41] LABS: MAGNESIUM 2.2 mg/dL (1.80-2.40); POTASSIUM 4.4 mmol/L (3.5-5.1)
[2024-10-17] MEDS: atorVAStatin 10 MG TABLET PO SCH (21:18)
[2024-10-17] MEDS: metoPROLOL tartRATE 25 MG TAB PO SCH (21:18)
[2024-10-17] MEDS: ASPIRIN 81 MG EC TAB PO SCH (21:18)
--- NOTE | 2024-10-17 21:23 | CONS ---
INFECTIOUS DISEASE CONSULTATION NOTE Date of Service: October 17, 2024 Reason for Consultation: Community-acquired pneumonia with interstitial lung disease. Requesting Physician: Dr. Ekaterina Benitez HISTORY OF PRESENT ILLNESS: This is a 79-year-old male patient with past medical history of diabetes mellitus, hypertension and coronary artery disease who presented to the emergency room for evaluation after sustaining a fall at home, shortness of breath and cough. Patient reported feeling generalized body weakness, his knees gave up and fell on his face. A CT of the head done on admission was negative for any acute findings. Stated he had fever and chills last Thursday. In the ER patient was found with lactic acid of 2.7, WBC of 11.9 but no fever. A chest x-ray showed bilateral pulmonary infiltrates. A CT of the chest showed bilateral ground glass opacification in the right lower lobe area consistent with interstitial lung disease. Patient has been started on Meropenem and doxycycline. On examination today in room 228 patient is still experiencing productive coughing episodes, clear sputum. Sputum culture has been collected. No epis odes of emesis reported. Patient remains on oxygen via nasal cannula at 2 LPM. We will follow up on the culture results. REVIEW OF SYSTEMS CONSTITUTIONAL: Denies fever, chills, or fatigue. HEAD/FACE: No signs of trauma. EENT: Denies eye pain, blurred vision, double vision, or light sensitivity. RESPIRATORY: Shortness of breath and productive cough. CARDIOVASCULAR: Denies chest pain, palpitation, syncope GASTROINTESTINAL/ABDOMINAL: Denies abdominal pain, constipation, diarrhea, nausea or vomiting. GENITOURINARY: Denies dysuria or hematuria. MUSCULOSKELETAL: Denies joint pain, tenderness, or trauma. Generalized body weakness. INTEGUMENTARY: Denies rash or itchiness NEUROLOGICAL/PSYCH: Denies anxiety, depression, heat or cold intolerance. PAST MEDICAL HISTORY: Diabetes mellitus. Hypertension. Hyperlipidemia. CAD. PAST SURGICAL HISTORY: Coronary artery bypass graft. PAST SOCIAL HISTORY: Denied the use of alcohol, tobacco or any other illicit drug. FAMILY HISTORY: Father had diabetes mellitus and coronary artery disease. Coded Allergies: No Known Drug Allergies (Verified Allergy, 08/18/13) PHYSICAL EXAM EYES: Anicteric. Pupils equal and reactive. HENT: No oral thrush seen, moist Oral mucosa. NECK: Supple, no JVD or thyromegaly. LUNGS: Good air entry. No rales. Productive cough. Oxygen support. CARDIOVASCULAR: S1, S2 regular. No murmur heard. ABDOMEN: Soft, non tender, bowel sounds present, no organomegaly. CENTRAL NERVOUS SYSTEM: Awake, alert, oriented x 3. SKIN: No rashes, no swelling. LYMPHATICS: No peripheral lymphadenopathy. MUSCULOSKELETAL: No joint swelling, erythema or tenderness. EXTREMITIES: No cyanosis or clubbing. BACK: No deformity, no pressure ulcer. GENITOURINARY: No dysuria or hematuria. Vital Sign (Last 24 Hours) 10/17/24 10/17/24 16:32 18:56 Temp 98.1 Pulse 91 Resp 20 B/P (MAP) 128/61 Pulse Ox 93 O2 Delivery N/Cannula Low lpm O2 Flow Rate 2.0 FiO2 28 Intake & Output (last 24hrs) 10/16/24 10/16/24 10/17/24 15:00 23:00 07:00 Intake Total 850.0 ml Output Total 200 ml Balance 650.0 ml LABS: Laboratory: Test 10/17/24 20:24 10/17/24 17:45 10/17/24 03:36 10/16/24 20:14 Range/Units Potassium Level 4.4 3.5-5.1 mmol/L Magnesium Level 2.20 1.80-2.40 mg/dL Whole Blood Glucose 135 H 70-110 MG/DL White Blood Count 8.3 # 4.8-10.8 K/uL Red Blood Count 3.58 L 4.50-6.20 MIL/uL Hemoglobin 11.9 L 14.0-18.0 g/dL Hematocrit 34.8 L 42-54 % Mean Corpuscular Volume 97.2 79-99 fL Mean Corpuscular Hemoglobin 33.2 H 27.0-33.0 pg Mean Corpuscular Hemoglobin Concent 34.2 32.0-36.0 g/dL Red Cell Distribution Width 13.0 11.0-15.5 % Platelet Count 105 L 130-400 K/uL Mean Platelet Volume 11.7 H 7.5-10.5 fL Immature Granulocyte % (Auto) 1.0 0-1 % Neutrophils (%) (Auto) 74.3 40.0-77.0 % Lymphocytes (%) (Auto) 17.2 L 21.0-51.0 % Monocytes (%) (Auto) 7.1 3.0-13.0 % Eosinophils (%) (Auto) 0.2 0.0-8.0 % Basophils (%) (Auto) 0.2 0.0-5.0 % Neutrophils # (Auto) 6.1 1.8-7.7 K/uL Lymphocytes # (Auto) 1.4 1.0-4.8 K/uL Monocytes # (Auto) 0.6 0.1-1.0 K/uL Eosinophils # (Auto) 0.02 0.00-0.70 K/uL Basophils # (Auto) 0.02 0.00-0.20 K/uL Absolute Immature Granulocyte (auto 0.08 0-1 K/uL Nucleated Red Blood Cells 0.0 0.0-0.19 % Sodium Level 140 136-145 mmol/L Chloride Level 107 101-111 mmol/L Carbon Dioxide Level 23 21-32 mmol/L Blood Urea Nitrogen 17 7-18 mg/dL Creatinine 0.8 0.5-1.3 mg/dL Glomerular Filtration Rate Calc 91 >90 mL/min Random Glucose 105 # 70-105 mg/dL Total Calcium 7.8 L 8.5-10.1 mg/dL Total Bilirubin 1.6 #H 0.2-1.0 mg/dL Aspartate Amino Transf (AST/SGOT) 23 10-37 U/L Alanine Aminotransferase (ALT/SGPT) 25 # 12-78 U/L Alkaline Phosphatase 103 50-136 U/L Total Protein 6.0 6.0-8.3 g/dL Albumin 2.2 #L 3.5-5.0 g/dL Lactic Acid Level 1.8 0.8-2.5 mmol/L Test 10/16/24 17:17 10/16/24 17:09 10/16/24 14:40 10/16/24 14:30 Range/Units Whole Blood Ketones Quantitative 0.9 H 0.0-0.6 mmol/L Blood Gas Specimen Type Arterial Arterial Blood pH 7.383 7.350-7.450 Arterial Blood Partial Pressure CO2 38 35-48 mmHg Arterial Blood Partial Pressure O2 83.1 83.0-108.0 mmHg Arterial Blood HCO3 22.1 21.0-28.0 mmol/L Arterial Blood Oxygen Saturation 95.4 94.0-98.0 % Arterial Blood Base Excess -2.6 L -2.0-3.0 mmol/L Hemoglobin (Blood Gas) 13.7 13.5-17.5 g/dL Sodium (Blood Gas) 136 136-145 MMOL/L Bedside Potassium (Blood Gas) 3.6 3.4-4.5 MMOL/L Bedside Chloride (Blood Gas) 105 98-107 MMOL/L Bedside Glucose (Blood Gas) 194 H 65-95 MG/DL Bedside Ionized Calcium (Blood Gas) 1.12 L 1.15-1.33 MMOL/L Bedside Lactic Acid (Blood Gas) 1.41 H 0.36-0.75 MMOL/L Blood Gas Temperature 37.0 35.5-37.0 CELSIUS Blood Gas Flow-by 2.00 0.00-15.00 L/min Blood Gas Vent Mode NC ROOM AIR FiO2 21.0 % Blood Gas Specimen Comment RBJUAN Urine Color YELLOW YELLOW Urine Appearance CLEAR CLEAR Urine pH 5.0 5.0-8.0 Urine Specific Mobile 1.031 1.001-1.031 Urine Protein NEGATIVE NEGATIVE mg/dL Urine Glucose (UA) >=1000 H NEGATIVE mg/dL Urine Ketones 10 H NEGATIVE mg/dL Urine Occult Blood SMALL H NEGATIVE Urine Nitrate NEGATIVE NEGATIVE Urine Bilirubin NEGATIVE NEGATIVE mg/dL Urine Urobilinogen 3 H 0.2-1.0 mg/dL Urine Leukocyte Esterase NEGATIVE NEGATIVE Gina/uL Urine RBC 2-5 H 0-1 /HPF Urine WBC 2-5 H 0-1 /HPF Urine Bacteria RARE None Seen /HPF Urine Yeast RARE None Seen /HPF Influenza Type A Antigen Negative For Type A NEGATIVE Influenza Type B Antigen Negative For Type B NEGATIVE SARS-CoV-2, RNA, NAAT NEGATIVE SARS CoV-2 NEGATIVE Test 10/16/24 14:01 Range/Units White Cell Morphology Comment See comments Erythrocyte Sedimentation Rate 109 H 0-20 MM/HR Prothrombin Time 12.0 H 9.6-11.6 SEC Prothromb Time International Ratio 1.15 0.85-1.15 Activated Partial Thromboplast Time 33.6 26.3-35.5 SEC Hemoglobin A1c 7.7 H 4.0-6.0 % Estimated Average Glucose (eAG) 174 H 70-126 mg/dL Direct Bilirubin 1.8 H 0.0-0.3 mg/dL Total Creatine Kinase 70 # 21-232 U/L Troponin I High Sensitivity 20 4-75 ng/L C-Reactive Protein, Quantitative 240.00 H 0.5-3.0 mg/L B-Type Natriuretic Peptide 150 H 0-100 pg/mL Procalcitonin 1.44 H 0.05-0.5 ng/mL Thyroid Stimulating Hormone (TSH) 0.89 0.36-3.74 uIU/mL ASSESSMENT: Pneumonia. Acute hypoxic respiratory failure, requiring oxygen support. Status post mechanical fall. Leukocytosis, resolving. History of interstitial pulmonary fibrosis, Coronary artery disease. Diabetes mellitus. PLAN: Continue Meropenem. Continue doxycycline. Continue GI prophylaxis. We will follow up on the culture results. Continue antidiabetics. We will monitor electrolytes. Continue oxygen support. Thank you for allowing [facility] to participate in the care of this patient. This case was reviewed and discussed with my supervising physician and the above assessment and plan was formulated and agreed upon. ATTESTATION BY PHYSICIAN I have seen and examined the patient. I reviewed the documentation, medical decision making, and treatment plan as noted by the mid-level provider above. I agree with the findings and plan of care. JUANITA PÉREZ MD, MIRTA L [facility] October 17, 2024 21:23
[2024-10-18] VITALS (17 sets, daily range): BP systolic 127–152; BP diastolic 51–75; PULSE 69–102; RESP 18–28; TEMP 97.8–98.3; O2SAT 92–98
[2024-10-18 06:41] LABS: BASOPHILS # (AUTO) 0.03 K/uL (0.00-0.20); BASOPHILS % (AUTO) 0.5 % (0.0-5.0); EOSINOPHILS # (AUTO) 0.18 K/uL (0.00-0.70); EOSINOPHILS % (AUTO) 2.8 % (0.0-8.0); IMMATURE GRANULOCYTE ABSOLUTE 0.03 K/uL (0-1); LYMPHOCYTES # (AUTO) 1.3 K/uL (1.0-4.8); LYMPHOCYTES % (AUTO) 19.9 % (21.0-51.0); MEAN CORPUSCULAR HEMOGLOBIN 33.5 pg (27.0-33.0); MEAN CORPUSCULAR HGB CONC 34.1 g/dL (32.0-36.0); MEAN CORPUSCULAR VOLUME 98.3 fL (79-99); MONOCYTES # (AUTO) 0.4 K/uL (0.1-1.0); MONOCYTES % (AUTO) 6.5 % (3.0-13.0); NEUTROPHILS # (AUTO) 4.4 K/uL (1.8-7.7); NEUTROPHILS % (AUTO) 69.8 % (40.0-77.0); PLATELET COUNT (AUTO) 123 K/uL (130-400); RED BLOOD CELL COUNT(AUTO) 3.46 MIL/uL (4.50-6.20); RED CELL DISTRIBUTION WIDTH 12.9 % (11.0-15.5); WHITE BLOOD COUNT (AUTO) 6.3 K/uL (4.8-10.8)
--- NOTE | 2024-10-18 06:47 | PN ---
[facility] PROGRESS NOTE Date of Service: October 18, 2024 Time of Service: 06:47 SUBJECTIVE: 79-year-old male with underlying history hypertension, hyperlipidemia, type 2 diabetes mellitus, coronary artery disease with prior history of coronary artery bypass grafting in 2003, history of interstitial pulmonary fibrosis with bronchiectasis, history of hospitalization in [facility] for septic shock in 11/2023 who presented to the ER for further evaluation of productive cough, shortness of breath, fevers and chills. Symptoms have been ongoing for the past 2-3 days and patient's reports that patient has been having high-grade fever of greater than 102 F at home yesterday. Patient has been having dyspnea on exertion as well as malaise and lethargy. O ral intake has been poor. Patient was ambulating to the restroom today when he felt weak and per patient had a fall. Patient denies any syncopal episode. Denies any chest pain. Patient has not been taking any antibiotics as outpatient. Patient previously has known history of fibrotic lung disease with bronchiectasis and was hospitalized in [facility] for community-acquired pneumonia and UTI secondary to ESBL E coli in 11/2023. On presentation to the hospital, patient was noted to be hypotensive, tachycard ic with T-max of 97.9 F. [place] [address], hemoglobin 12.7, platelet count of 608724. CMP remarkable for sodium of 132, potassium 3.8, BUN of 24, creatinine 1.4, lactic acid of 2.7, procalcitonin of 1.44. Chest x-ray showed bilateral infiltrates concerning for pneumonia. Patient will be admitted for further treatment and management of severe sepsis, respiratory failure, developing community-acquired pneumonia in the setting of chronic lung disease with interstitial pulmonary fibrosis with bronchiectasis. 10/17/2024: Patient seen resting on the bed. Patient states considerable improvement of his condition. His shortness of breath has improved and is currently on 2 L of oxygen. He is tolerating physical therapy well. CT chest showed Bilateral ground glass opacification in right lower lobe area of consolidation most consistent with infiltrate superimposed on interstitial lung disease. Excess Disease and pulmonology on board patient is being treated with IV Merrem and doxycycline currently. EKG shows regular and multiple premature complexes-ventricular paced. Pending discharge disposition. REVIEW OF SYSTEMS CONSTITUTIONAL: Fevers, chills, malaise, poor oral intake NEUROLOGICAL: Denies headache, amaurosis fugax, motor weakness, sensory deficit, vertigo/spinning sensation, gait abnormalities, or tremors. ENT: No hearing loss, otalgia, otorrhea, rhinitis, rhinorrhea, hoarseness, or sore throat. CARDIOVASCULAR: Denies any exertional angina, dyspnea on exertion, orthopnea, paroxysmal nocturnal dyspnea, palpitations, life-threatening arrhythmias, claudication. PULMONARY: Productive cough, shortness of breath, dyspnea on exertion SLEEP: Denies morning headaches, daytime somnolence or napping. Denies difficulty falling asleep, staying asleep, waking from sleep. Denies knowledge of snoring. GASTROINTESTINAL: Denies any type of dysphagia to either liquids or solids. Denies nausea, vomiting, pyrosis, early satiety, abdominal pain, diarrhea, constipation, or changes in stool consistency or caliber. Denies coffee-ground emesis, hematemesis, hematochezia, or melanotic stools. GENITOURINARY: Denies frequency, urgency, nocturia, hematuria or incontinence (Storage/Irritative symptoms.) Low urinary stream, straining to void, urinary intermittency or hesitancy, splitting of the voiding stream, terminal dribbling. ENDOCRINOLOGIC: Denies polyuria, polydipsia, polyphagia or heat/cold intolerances. HEMATOLOGIC: Denies thrombophilia/previous clots, or coagulopathy/bleeding disorders. ONCOLOGIC: Denies personal history of malignancy. DERMATOLOGIC: Denies rashes or pruritus. PSYCHIATRIC: Denies any suicidal or homicidal ideation. Denies hallucinations. PHYSICAL EXAM GENERAL APPEARANCE: The patient is awake, alert, and oriented, appears debilitated and frail NEUROLOGICAL: Cranial nerves II-XII grossly intact. Motor is 5/5 in bilateral upper and lower extremities proximal to distal. No sensory deficits. HEENT: Face is symmetric. Pupils are equal and reactive. Extraocular movements are intact. NECK: Supple. No JVD. No thyromegaly. No submental, submandibular, pre- /postauricular, occipital or supraclavicular lymphadenopathy. CHEST: Normal chest expansion. No Telemetry. LUNGS: Patient has fine crackles noted of bilateral lung bases with rhonchorous breath sounds, no active wheezing noted CARDIOVASCULAR: Regular. S1 and S2 normal. No appreciable rubs, murmurs or gallops. ABDOMEN: Soft, nontender, and nondistended. There is no rebound, voluntary guarding, or rigidity. : Deferred. No Davila. EXTREMITIES: Non-edematous and not cyanotic. No clubbing. Good capillary refill. SKIN: No skin breakdown. Vital Signs (last 8hr) Date Time Temp Pulse Resp B/P (MAP) Pulse Ox O2 Delivery O2 Flow Rate FiO2 10/18/24 06:40 92 28 N/Cannula Low lpm 2.0 10/18/24 06:33 92 28 10/18/24 00:50 97.9 85 18 127/56 96 Nasal Cannula 2.0 10/17/24 23:43 91 20 N/Cannula Low lpm 2.0 28 10/17/24 23:43 91 20 LABS: Laboratory: Test 10/18/24 06:30 10/17/24 21:36 10/17/24 20:24 10/17/24 03:36 Range/Units White Blood Count 6.3 4.8-10.8 K/uL Red Blood Count 3.46 L 4.50-6.20 MIL/uL Hemoglobin 11.6 L 14.0-18.0 g/dL Hematocrit 34.0 L 42-54 % Mean Corpuscular Volume 98.3 79-99 fL Mean Corpuscular Hemoglobin 33.5 H 27.0-33.0 pg Mean Corpuscular Hemoglobin Concent 34.1 32.0-36.0 g/dL Red Cell Distribution Width 12.9 11.0-15.5 % Platelet Count 123 L 130-400 K/uL Mean Platelet Volume 11.4 H 7.5-10.5 fL Immature Granulocyte % (Auto) 0.5 0-1 % Neutrophils (%) (Auto) 69.8 40.0-77.0 % Lymphocytes (%) (Auto) 19.9 L 21.0-51.0 % Monocytes (%) (Auto) 6.5 3.0-13.0 % Eosinophils (%) (Auto) 2.8 0.0-8.0 % Basophils (%) (Auto) 0.5 0.0-5.0 % Neutrophils # (Auto) 4.4 1.8-7.7 K/uL Lymphocytes # (Auto) 1.3 1.0-4.8 K/uL Monocytes # (Auto) 0.4 0.1-1.0 K/uL Eosinophils # (Auto) 0.18 0.00-0.70 K/uL Basophils # (Auto) 0.03 0.00-0.20 K/uL Absolute Immature Granulocyte (auto 0.03 0-1 K/uL Nucleated Red Blood Cells 0.0 0.0-0.19 % Whole Blood Glucose 158 H 70-110 MG/DL Potassium Level 4.4 3.5-5.1 mmol/L Magnesium Level 2.20 1.80-2.40 mg/dL Sodium Level 140 136-145 mmol/L Chloride Level 107 101-111 mmol/L Carbon Dioxide Level 23 21-32 mmol/L Blood Urea Nitrogen 17 7-18 mg/dL Creatinine 0.8 0.5-1.3 mg/dL Glomerular Filtration Rate Calc 91 >90 mL/min Random Glucose 105 # 70-105 mg/dL Total Calcium 7.8 L 8.5-10.1 mg/dL Total Bilirubin 1.6 #H 0.2-1.0 mg/dL Aspartate Amino Transf (AST/SGOT) 23 10-37 U/L Alanine Aminotransferase (ALT/SGPT) 25 # 12-78 U/L Alkaline Phosphatase 103 50-136 U/L Total Protein 6.0 6.0-8.3 g/dL Albumin 2.2 #L 3.5-5.0 g/dL Test 10/16/24 20:14 10/16/24 17:17 10/16/24 17:09 10/16/24 14:40 Range/Units Lactic Acid Level 1.8 0.8-2.5 mmol/L Whole Blood Ketones Quantitative 0.9 H 0.0-0.6 mmol/L Blood Gas Specimen Type Arterial Arterial Blood pH 7.383 7.350-7.450 Arterial Blood Partial Pressure CO2 38 35-48 mmHg Arterial Blood Partial Pressure O2 83.1 83.0-108.0 mmHg Arterial Blood HCO3 22.1 21.0-28.0 mmol/L Arterial Blood Oxygen Saturation 95.4 94.0-98.0 % Arterial Blood Base Excess -2.6 L -2.0-3.0 mmol/L Hemoglobin (Blood Gas) 13.7 13.5-17.5 g/dL Sodium (Blood Gas) 136 136-145 MMOL/L Bedside Potassium (Blood Gas) 3.6 3.4-4.5 MMOL/L Bedside Chloride (Blood Gas) 105 98-107 MMOL/L Bedside Glucose (Blood Gas) 194 H 65-95 MG/DL Bedside Ionized Calcium (Blood Gas) 1.12 L 1.15-1.33 MMOL/L Bedside Lactic Acid (Blood Gas) 1.41 H 0.36-0.75 MMOL/L Blood Gas Temperature 37.0 35.5-37.0 CELSIUS Blood Gas Flow-by 2.00 0.00-15.00 L/min Blood Gas Vent Mode NC ROOM AIR FiO2 21.0 % Blood Gas Specimen Comment RBJUAN Urine Color YELLOW YELLOW Urine Appearance CLEAR CLEAR Urine pH 5.0 5.0-8.0 Urine Specific [place] 1.031 1.001-1.031 Urine Protein NEGATIVE NEGATIVE mg/dL Urine Glucose (UA) >=1000 H NEGATIVE mg/dL Urine Ketones 10 H NEGATIVE mg/dL Urine Occult Blood SMALL H NEGATIVE Urine Nitrate NEGATIVE NEGATIVE Urine Bilirubin NEGATIVE NEGATIVE mg/dL Urine Urobilinogen 3 H 0.2-1.0 mg/dL Urine Leukocyte Esterase NEGATIVE NEGATIVE Gina/uL Urine RBC 2-5 H 0-1 /HPF Urine WBC 2-5 H 0-1 /HPF Urine Bacteria RARE None Seen /HPF Urine Yeast RARE None Seen /HPF Test 10/16/24 14:30 10/16/24 14:01 Range/Units Influenza Type A Antigen Negative For Type A NEGATIVE Influenza Type B Antigen Negative For Type B NEGATIVE SARS-CoV-2, RNA, NAAT NEGATIVE SARS CoV-2 NEGATIVE White Cell Morphology Comment See comments Erythrocyte Sedimentation Rate 109 H 0-20 MM/HR Prothrombin Time 12.0 H 9.6-11.6 SEC Prothromb Time International Ratio 1.15 0.85-1.15 Activated Partial Thromboplast Time 33.6 26.3-35.5 SEC Hemoglobin A1c 7.7 H 4.0-6.0 % Estimated Average Glucose (eAG) 174 H 70-126 mg/dL Direct Bilirubin 1.8 H 0.0-0.3 mg/dL Total Creatine Kinase 70 # 21-232 U/L Troponin I High Sensitivity 20 4-75 ng/L C-Reactive Protein, Quantitative 240.00 H 0.5-3.0 mg/L B-Type Natriuretic Peptide 150 H 0-100 pg/mL Procalcitonin 1.44 H 0.05-0.5 ng/mL Thyroid Stimulating Hormone (TSH) 0.89 0.36-3.74 uIU/mL Current Medications Medications (Trade) Dose Ordered Sig/Eliceo Route PRN Reason Start Time Stop Time Status Last Admin Dose Admin Acetaminophen (TYLenol 325MG TAB) 650 mg Q6H PRN PO MILD PAIN (1-3) 10/16/24 17:00 11/15/24 16:59 10/17/24 14:51 650 MG Aspirin (Aspirin 81mg Ec Tab) 81 mg HS PO 10/17/24 21:00 11/16/24 20:59 10/17/24 21:18 81 MG Atorvastatin Calcium (LIPItor 10MG) 10 mg HS PO 10/17/24 21:00 11/16/24 20:59 10/17/24 21:18 10 MG Budesonide (Pulmicort 0.5 Mg/2ml) 0.5 mg BIDRESP IH 10/16/24 16:30 11/15/24 16:29 10/18/24 06:32 0.5 MG Doxycycline Hyclate 250 ml @ 125 mls/hr Q12H IV 10/16/24 16:30 10/26/24 16:29 10/18/24 04:33 125 MLS/HR Enoxaparin Sodium (Lovenox) 30 mg DAILY SQ 10/18/24 09:00 11/17/24 08:59 Folic Acid (FOLic ACID 1 MG TABLET) 1 mg DAILY PO 10/18/24 09:00 11/17/24 08:59 Guaifenesin/ Dextromethorphan (RobiTUSSin DM 200/20MG 10ML) 10 ml Q6H PRN PO COUGH 10/16/24 17:00 10/17/24 05:47 DC 10/17/24 01:42 10 ML Guaifenesin/ Dextromethorphan (RobiTUSSin DM 200/20MG 10ML) 15 ml Q4H4 PRN PO COUGH 10/17/24 06:00 11/16/24 05:59 10/18/24 04:33 15 ML Insulin Glargine (LANtus 100 UNITS/ML 10 ML VIAL) 10 units HS SQ 10/16/24 21:00 11/15/24 20:59 10/17/24 22:19 10 UNITS Insulin Human Regular (humuLIN R 100 UNIT/ML 3ML) INSULIN SLIDING SCAL... ACHS SQ 10/16/24 16:30 11/15/24 16:29 10/16/24 17:07 2 UNIT Ipratropium [place] (AtrovENT UD) 0.5 mg [id number] IH 10/16/24 18:00 11/15/24 17:59 10/18/24 06:32 0.5 MG Magnesium Sulfate 50 ml @ 0 mls/hr PROTOCOL PRN IV MAGNESIUM PROTOCOL 10/17/24 07:30 11/16/24 07:29 10/17/24 08:38 25 MLS/HR Meropenem (Merrem 1gm) 1 gm Q12H IVPB 10/16/24 16:30 10/26/24 16:29 10/18/24 05:52 1 GM Metoprolol Tartrate (loprESSOR) 25 mg BID PO 10/17/24 21:00 11/16/24 20:59 10/17/24 21:18 25 MG Pantoprazole Sodium (PROTonix 40MG INJ) 40 mg Q24H IVP 10/16/24 16:30 11/15/24 16:29 10/17/24 16:54 40 MG Pharmacy Profile Note (Pharmacy Communication) 1 each ONCE MISC 10/16/24 16:30 10/16/24 16:29 DC Potassium Chloride 100 ml @ 100 mls/hr AD PRN IV POTASSIUM PROTOCOL 10/17/24 10:30 11/16/24 10:29 Potassium Chloride (K-Dur/Klor-Con 20meq) 20 meq AD PRN PO POTASSIUM PROTOCOL 10/17/24 10:30 11/16/24 10:29 10/17/24 14:50 20 MEQ Potassium Chloride (KCl 10% Elixir 20meq/15ml) 20 meq AD PRN PO POTASSIUM PROTOCOL 10/17/24 10:30 11/16/24 10:29 Sodium Chloride 1,000 ml @ 75 mls/hr [id number] IV 10/16/24 16:30 11/15/24 16:29 10/17/24 19:23 75 MLS/HR Thiamine HCl (Vitamin B-1) 100 mg Q24H IVP 10/16/24 17:00 10/21/24 17:00 10/17/24 17:29 100 MG Vitamin B Complex (Vitamin B-12) 1,000 mcg AM PO 10/18/24 09:00 11/17/24 08:59 DIAGNOSTICS / RADIOLOGY: [ ] ASSESSMENT: Severe sepsis secondary to underlying community-acquired pneumonia, POA Acute hypoxemic respiratory failure, POA Multifocal community acquired pneumonia, POA Underlying history of interstitial pulmonary fibrosis, POA History of bronchiectasis, POA Lactic acidosis, POA Acute kidney injury, POA Status post fall, POA Hypovolemic hyponatremia, POA Hypotension, POA, resolving after fluid resuscitation Mild ketosis with history of Jardiance use as outpatient, POA Moderate protein calorie malnutrition, POA Chronic problem History of multivessel coronary artery disease, POA History of ischemic cardiomyopathy, POA Uncontrolled type 2 diabetes mellitus, POA Hypertension, POA Hyperlipidemia, POA Debility/frailty, POA PLAN: Patient will be admitted to cardiac telemetry floor Patient presenting with signs of severe sepsis with hypotension, acute kidney injury, respiratory failure with CT chest findings of bilateral consolidative pneumonia, patient with preexisting chronic lung disease with interstitial pulmonary fibrosis with bronchiectasis We will start broad-spectrum antibiotics with meropenem/doxycycline, patient has previous history of ESBL infection, antibiotics to be deescalated in 48-72 hours based on culture report -sputum culture growing Gram-positive cocci in clusters. Consultation with pulmonology will be requested Patient received 1 L of NS bolus in the ER, we will start maintenance IV fluid with normal saline at 75 mL/hour, monitor lactic acid trend closely, p.r.n. boluses, full sepsis bolus of fluid was not given due to underlying history of cardiomyopathy, history of [id number] LVH with diastolic dysfunction and risk of iatrogenic volume overload and worsening of respiratory status We will follow up respiratory culture, MRSA nasal screen, and pneumonia workup including mycoplasma, urine Legionella and streptococcal antigen testing We will start patient on scheduled Pulmicort and Atrovent We will reinstitute antihypertensives slowly in the next 24-48 hours once blood pressure stabilizes Maintain map greater than 65 We will follow up results of renal ultrasound, CT head showed no findings of acute intracranial bleed, patient did have a fall today and hit the left side of the head with the fall, denies any syncopal episodes We will follow up results of 2D echocardiogram We will request consultation with Physical therapy We will start patient on sliding scale insulin a.c. and HS, basal Lantus of 10 units daily, patient does have mild ketosis and takes Jardiance as outpatient, if blood ketones worsens or patient shows signs of euglycemic DKA, patient may need insulin drip, we will recheck labs tomorrow All labs will be repeated in the morning Discussed with family to bring list of home medications Date of service: 10/16/2024 Plan of care was discussed with patient and at bedside, Sander Rodríguez MD Advanced Care Planning: Which of the following were discussed: Hospice care: Yes __ No _X_ Therapeutic options: Yes _X_ No __ Advance directives: Yes _X_ No __ Other discussions: Discussed with who?: Patient Voluntary nature of this service was explained to the patient? Yes _x_ No __ Amount of time spent: 20 minutes ATTESTATION BY PHYSICIAN I have seen and examined the patient. I reviewed the documentation, medical decision making, and treatment plan as noted by the resident provider above. I agree with the findings and plan of care. Musa Sierra MD, ANCHU A MD October 18, 2024 06:47
[2024-10-18 06:51] LABS: BILIRUBIN,TOTAL 0.6 mg/dL (0.2-1.0); CREATININE 0.9 mg/dL (0.5-1.3); TOTAL PROTEIN, SERUM 5.9 g/dL (6.0-8.3)
[2024-10-18] MEDS: FOLic ACID 1 MG TABLET PO SCH (09:34)
[2024-10-18] MEDS: CYANOCOBALAMIN (VITAMIN B-12) 1,000 MCG TABLET PO SCH (09:34)
[2024-10-18] MEDS: ENOXAPARIN SODIUM 30 MG/0.3 ML SQ SCH (09:35)
--- NOTE | 2024-10-18 10:02 | EKG ---
[facility] Test Date: 2024-10-17 Test Time: 11:03:16 Pat Name: ARLINE BAUTISTA Department: [facility] Room: 302 Gender: M Roller Pneumatic: [id number] : 1945 Requested By: ARVIND MEYER Order Number: [id number] Reading MD: Nicole Inman Measurements Intervals [place] Rate: 104 P: 231 AZ: 219 QRS: -108 QRSD: 152 T: 27 QT: 390 QTc: 512 Interpretive Statements Sinus or ectopic atrial tachycardia Atrial premature complex Prolonged [place] interval Right bundle branch block Inferior infarct, old Anterior infarct, old Compared to ECG 10/16/2024 14:28:45 First degree AV block now present Myocardial infarct finding now present Sinus rhythm no longer present Electronically Signed On 10-19-2024 09:18:47 CDT by Nicole Inman Please click the below link to view image of tracing.
--- NOTE | 2024-10-18 10:04 | PN ---
[facility] PROGRESS NOTE Date Patient Seen: October 18, 2024 Time of Visit: 10:04 Supervising Physician: Deven Mosley MD Consulting Physician: Dr Rodríguez Outpatient Specialists: [ ] Inpatient Consults: [ ] PROBLEM LIST: Acute hypoxic respiratory failure, POA Community-acquired pneumonia, POA Congestive heart failure, POA LVEF of 50-55% per 2D echo 10/17/2024 Stage I diastolic dysfunction per 2D echo 10/17/2024 Severe concentric left ventricular hypertrophy Concern for interstitial lung disease pending autoimmune workup Acute kidney injury, POA Lactic acidosis, POA DM type 2, POA Hyperlipidemia, POA Hypertension, POA History of CAD s/p CABG INTERVAL HISTORY: 10/18/24- Pt awake alert and oriented. he has been working with PT with exertion on ambulation as per pt. At bedrest mild distress currently on 2 L via NC. will start steroid solumedrol 40mg IV q12hrs. Pending autoimmune workup. REVIEW OF SYSTEMS: 12 point ROS reviewed with patient. Pertinent positives mentioned above. Otherwise negative. PHYSICAL EXAM: GENERAL: alert, weak, awake oriented x 3 HEENT: EOMI, Sclera non icteric, moist mucosa NECK: Supple, no JVD, trachea midline LUNGS: Scattered rales on auscultation HEART: Regular rate and rhythm. Normal S1 and S2, without murmurs ABD: Abdomen soft, nontender. Bowel sounds present EXT: No clubbing cyanosis 2+ bilateral lower extremity edema NEURO: Alert and oriented to person, follows commands Vital Signs (last 8hr) Date Time Temp Pulse Resp B/P (MAP) Pulse Ox O2 Delivery O2 Flow Rate FiO2 10/18/24 08:41 97.9 102 18 144/66 95 Nasal Cannula 2.0 10/18/24 06:40 92 28 N/Cannula Low lpm 2.0 10/18/24 06:33 92 28 10/18/24 03:50 98.1 87 18 136/69 93 Nasal Cannula 2.0 LABS: Hematology Labs: Test 10/18/24 06:30 10/16/24 14:01 Range/Units White Blood Count 6.3 4.8-10.8 K/uL Red Blood Count 3.46 L 4.50-6.20 MIL/uL Hemoglobin 11.6 L 14.0-18.0 g/dL Hematocrit 34.0 L 42-54 % Mean Corpuscular Volume 98.3 79-99 fL Mean Corpuscular Hemoglobin 33.5 H 27.0-33.0 pg Mean Corpuscular Hemoglobin Concent 34.1 32.0-36.0 g/dL Red Cell Distribution Width 12.9 11.0-15.5 % Platelet Count 123 L 130-400 K/uL Mean Platelet Volume 11.4 H 7.5-10.5 fL Immature Granulocyte % (Auto) 0.5 0-1 % Neutrophils (%) (Auto) 69.8 40.0-77.0 % Lymphocytes (%) (Auto) 19.9 L 21.0-51.0 % Monocytes (%) (Auto) 6.5 3.0-13.0 % Eosinophils (%) (Auto) 2.8 0.0-8.0 % Basophils (%) (Auto) 0.5 0.0-5.0 % Neutrophils # (Auto) 4.4 1.8-7.7 K/uL Lymphocytes # (Auto) 1.3 1.0-4.8 K/uL Monocytes # (Auto) 0.4 0.1-1.0 K/uL Eosinophils # (Auto) 0.18 0.00-0.70 K/uL Basophils # (Auto) 0.03 0.00-0.20 K/uL Absolute Immature Granulocyte (auto 0.03 0-1 K/uL Nucleated Red Blood Cells 0.0 0.0-0.19 % Erythrocyte Sedimentation Rate 97 H 0-20 MM/HR White Cell Morphology Comment See comments Chemistry Labs: Test 10/18/24 06:30 10/17/24 21:36 10/17/24 20:24 10/16/24 20:14 Range/Units Sodium Level 139 136-145 mmol/L Potassium Level 4.0 3.5-5.1 mmol/L Chloride Level 108 101-111 mmol/L Carbon Dioxide Level 25 21-32 mmol/L Blood Urea Nitrogen 13 7-18 mg/dL Creatinine 0.9 0.5-1.3 mg/dL Glomerular Filtration Rate Calc 87 >90 mL/min Random Glucose 127 H 70-105 mg/dL Total Calcium 7.9 L 8.5-10.1 mg/dL Total Bilirubin 0.6 0.2-1.0 mg/dL Aspartate Amino Transf (AST/SGOT) 25 10-37 U/L Alanine Aminotransferase (ALT/SGPT) 21 12-78 U/L Alkaline Phosphatase 96 50-136 U/L C-Reactive Protein, Quantitative 160.50 H 0.5-3.0 mg/L B-Type Natriuretic Peptide 130 H 0-100 pg/mL Total Protein 5.9 L 6.0-8.3 g/dL Albumin 2.0 L 3.5-5.0 g/dL Whole Blood Glucose 158 H 70-110 MG/DL Magnesium Level 2.20 1.80-2.40 mg/dL Lactic Acid Level 1.8 0.8-2.5 mmol/L Test 10/16/24 17:17 10/16/24 14:01 Range/Units Whole Blood Ketones Quantitative 0.9 H 0.0-0.6 mmol/L Hemoglobin A1c 7.7 H 4.0-6.0 % Estimated Average Glucose (eAG) 174 H 70-126 mg/dL Direct Bilirubin 1.8 H 0.0-0.3 mg/dL Total Creatine Kinase 70 # 21-232 U/L Troponin I High Sensitivity 20 4-75 ng/L Procalcitonin 1.44 H 0.05-0.5 ng/mL Thyroid Stimulating Hormone (TSH) 0.89 0.36-3.74 uIU/mL Coagulation Labs: Test 10/16/24 14:01 Range/Units Prothrombin Time 12.0 H 9.6-11.6 SEC Prothromb Time International Ratio 1.15 0.85-1.15 Activated Partial Thromboplast Time 33.6 26.3-35.5 SEC DIAGNOSTICS / RADIOLOGY RESULTS: [ ] PLAN continue abx for CAP start solu-medrol 40mg iv q 12 hrs pending autoimmune workup wean o2 as possible will need 6 min walk prior to DC NEURO: Minimize central acting medications as possible. Maintain fall precautions, adequate lighting during the day PULMONARY: Supplemental 02 as needed. Maintain aspiration precautions at all times CARDIOVASCULAR: Follow hemodynamics. Vital signs per facility protocol GI & NUTRITION: Continue with nutritional support. Continue stool softeners and laxatives as needed. KIDNEYS & ELECTROLYTES: Strict monitoring of intake, output and overall fluid balance. Avoid nephrotoxic medications to the extent possible. Medications to be dosed according to renal function. Monitor electrolytes and replace as needed ENDOCRINE: Maintain blood glucose between 100-180 at all times. Hypoglycemia protocol in place INFECTIOUS DISEASE: Trend temperature, WBC and procalcitonin level Follow cultures, deescalate antibiotics as soon as possible. Panculture if new onset fever ONCOLOGY/HEMATOLOGY/COAGULATION: Monitor for s/s of bleeding Monitor hemoglobin, coagulation studies as needed SKIN: Pressure ulcer prevention per facility protocol Specialty mattress ORTHO/REHAB: Continue PT/OT Prophylaxis: Continue GI and DVT prophylaxis Code Status: Full Resuscitation Disposition: TBD Other: I personally spent 40 minutes of critical care time in treatment of this patient. This includes patient management, time at bedside, time reviewing tests, labs, appropriate images and studies, documentation, and patient care coordination. This time excludes separately billable procedures. ATTESTATION BY PHYSICIAN I attest that I reviewed and discussed the case with the Physician [employer] as well as agree with the Physician [employer]'s findings, plans of care, and documentation above. Deven Rao MD, NELLY J ARNP October 18, 2024 10:04
[2024-10-18] MEDS: Solu-medROL 40MG VIAL IVP SCH (10:45)
[2024-10-18] MEDS: BENZONATATE 100 MG CAPSULE PO SCH (14:04)
[2024-10-18] MEDS: ceFEPime HCL 1 GM VIAL IVPB SCH (14:07)
--- NOTE | 2024-10-18 15:05 | PN ---
INFECTIOUS DISEASE PROGRESS NOTE Date of Service: October 18, 2024 SUBJECTIVE: This is a 79-year-old male patient who was seen and examined at bedside in room 228. Patient is awake, alert and oriented x3. The urine culture results came back positive for strep agalactiae group B. We will discontinue Meropenem and start patient on cefepime 1 g IV Q 8 hours. We will continue to follow up on the respiratory cultures. No other issues reported by nursing. PHYSICAL EXAM EYES: Anicteric. Pupils equal and reactive. HENT: No oral thrush seen, moist Oral mucosa. NECK: Supple, no JVD or thyromegaly. LUNGS: Good air entry. No rales. Productive cough. Oxygen support. CARDIOVASCULAR: S1, S2 regular. No murmur heard. ABDOMEN: Soft, non tender, bowel sounds present, no organomegaly. CENTRAL NERVOUS SYSTEM: Awake, alert, oriented x 3. SKIN: No rashes, no swelling. LYMPHATICS: No peripheral lymphadenopathy. MUSCULOSKELETAL: No joint swelling, erythema or tenderness. EXTREMITIES: No cyanosis or clubbing. BACK: No deformity, no pressure ulcer. GENITOURINARY: No dysuria or hematuria. Vital Sign (Last 12 Hours) 10/18/24 10/18/24 10/18/24 10/18/24 03:50 06:33 06:40 08:00 Temp 98.1 Pulse 87 92 92 Resp 18 28 B/P (MAP) 136/69 Pulse Ox 93 95 O2 Delivery Nasal Cannula N/Cannula Low lpm Nasal Cannula* O2 Flow Rate 2.0 2.0 2 FiO2 28 10/18/24 10/18/24 10/18/24 10/18/24 08:41 11:20 11:23 12:43 Temp 97.9 98.1 Pulse 102 98 98 98 Resp 18 24 24 18 B/P (MAP) 144/66 152/51 Pulse Ox 95 92 O2 Delivery Nasal Cannula N/A Room Air Nasal Cannula O2 Flow Rate 2.0 2.0 FiO2 21 Intake & Output (last 24hrs) 10/17/24 10/17/24 10/18/24 15:00 23:00 07:00 Intake Total 720 ml 400.0 ml 1535.0 ml Output Total 600 ml 750 ml 1000 ml Balance 120 ml -350.0 ml 535.0 ml LABS: Laboratory: Test 10/18/24 11:21 10/18/24 06:30 10/17/24 20:24 10/16/24 20:14 Range/Units Whole Blood Glucose 179 H 70-110 MG/DL White Blood Count 6.3 4.8-10.8 K/uL Red Blood Count 3.46 L 4.50-6.20 MIL/uL Hemoglobin 11.6 L 14.0-18.0 g/dL Hematocrit 34.0 L 42-54 % Mean Corpuscular Volume 98.3 79-99 fL Mean Corpuscular Hemoglobin 33.5 H 27.0-33.0 pg Mean Corpuscular Hemoglobin Concent 34.1 32.0-36.0 g/dL Red Cell Distribution Width 12.9 11.0-15.5 % Platelet Count 123 L 130-400 K/uL Mean Platelet Volume 11.4 H 7.5-10.5 fL Immature Granulocyte % (Auto) 0.5 0-1 % Neutrophils (%) (Auto) 69.8 40.0-77.0 % Lymphocytes (%) (Auto) 19.9 L 21.0-51.0 % Monocytes (%) (Auto) 6.5 3.0-13.0 % Eosinophils (%) (Auto) 2.8 0.0-8.0 % Basophils (%) (Auto) 0.5 0.0-5.0 % Neutrophils # (Auto) 4.4 1.8-7.7 K/uL Lymphocytes # (Auto) 1.3 1.0-4.8 K/uL Monocytes # (Auto) 0.4 0.1-1.0 K/uL Eosinophils # (Auto) 0.18 0.00-0.70 K/uL Basophils # (Auto) 0.03 0.00-0.20 K/uL Absolute Immature Granulocyte (auto 0.03 0-1 K/uL Nucleated Red Blood Cells 0.0 0.0-0.19 % Erythrocyte Sedimentation Rate 97 H 0-20 MM/HR Sodium Level 139 136-145 mmol/L Potassium Level 4.0 3.5-5.1 mmol/L Chloride Level 108 101-111 mmol/L Carbon Dioxide Level 25 21-32 mmol/L Blood Urea Nitrogen 13 7-18 mg/dL Creatinine 0.9 0.5-1.3 mg/dL Glomerular Filtration Rate Calc 87 >90 mL/min Random Glucose 127 H 70-105 mg/dL Total Calcium 7.9 L 8.5-10.1 mg/dL Total Bilirubin 0.6 0.2-1.0 mg/dL Aspartate Amino Transf (AST/SGOT) 25 10-37 U/L Alanine Aminotransferase (ALT/SGPT) 21 12-78 U/L Alkaline Phosphatase 96 50-136 U/L C-Reactive Protein, Quantitative 160.50 H 0.5-3.0 mg/L B-Type Natriuretic Peptide 130 H 0-100 pg/mL Total Protein 5.9 L 6.0-8.3 g/dL Albumin 2.0 L 3.5-5.0 g/dL Magnesium Level 2.20 1.80-2.40 mg/dL Lactic Acid Level 1.8 0.8-2.5 mmol/L Test 10/16/24 17:17 10/16/24 17:09 Range/Units Whole Blood Ketones Quantitative 0.9 H 0.0-0.6 mmol/L Blood Gas Specimen Type Arterial Arterial Blood pH 7.383 7.350-7.450 Arterial Blood Partial Pressure CO2 38 35-48 mmHg Arterial Blood Partial Pressure O2 83.1 83.0-108.0 mmHg Arterial Blood HCO3 22.1 21.0-28.0 mmol/L Arterial Blood Oxygen Saturation 95.4 94.0-98.0 % Arterial Blood Base Excess -2.6 L -2.0-3.0 mmol/L Hemoglobin (Blood Gas) 13.7 13.5-17.5 g/dL Sodium (Blood Gas) 136 136-145 MMOL/L Bedside Potassium (Blood Gas) 3.6 3.4-4.5 MMOL/L Bedside Chloride (Blood Gas) 105 98-107 MMOL/L Bedside Glucose (Blood Gas) 194 H 65-95 MG/DL Bedside Ionized Calcium (Blood Gas) 1.12 L 1.15-1.33 MMOL/L Bedside Lactic Acid (Blood Gas) 1.41 H 0.36-0.75 MMOL/L Blood Gas Temperature 37.0 35.5-37.0 CELSIUS Blood Gas Flow-by 2.00 0.00-15.00 L/min Blood Gas Vent Mode NC ROOM AIR FiO2 21.0 % Blood Gas Specimen Comment RBJUAN ASSESSMENT: Urinary tract infection with strep agalactiae group B. Pneumonia. Acute hypoxic respiratory failure, requiring oxygen support. Status post mechanical fall. Leukocytosis, resolving. History of interstitial pulmonary fibrosis, Coronary artery disease. Diabetes mellitus. PLAN: Discontinue Meropenem. Start cefepime 1 g IV Q 8 hours. Continue doxycycline. Continue GI prophylaxis. We will follow up on the culture results. Continue antidiabetics. We will monitor electrolytes. Continue oxygen support. This case was reviewed and discussed with my supervising physician and the above assessment and plan was formulated and agreed upon. ATTESTATION BY PHYSICIAN I have seen and examined the patient. I reviewed the documentation, medical decision making, and treatment plan as noted by the mid-level provider above. I agree with the findings and plan of care. JUANITA PÉREZ MD, [facility] October 18, 2024 15:05
[2024-10-18] MEDS ORDERED: cefTRIAXone 1G VIAL IVPB SCH (21:00)
[2024-10-19] VITALS (15 sets, daily range): BP systolic 136–155; BP diastolic 57–91; PULSE 67–94; RESP 18–28; TEMP 97.2–98.2; O2SAT 92–96
[2024-10-19 05:12] LABS: HEMATOCRIT 33.9 % (42-54); IMMATURE GRANULOCYTE ABSOLUTE 0.02 K/uL (0-1); LYMPHOCYTES # (AUTO) 0.6 K/uL (1.0-4.8); LYMPHOCYTES % (AUTO) 15.1 % (21.0-51.0); MEAN CORPUSCULAR HEMOGLOBIN 33.3 pg (27.0-33.0); MEAN CORPUSCULAR HGB CONC 34.8 g/dL (32.0-36.0); MEAN CORPUSCULAR VOLUME 95.8 fL (79-99); MONOCYTES # (AUTO) 0.1 K/uL (0.1-1.0); MONOCYTES % (AUTO) 1.8 % (3.0-13.0); NEUTROPHILS # (AUTO) 3.3 K/uL (1.8-7.7); NEUTROPHILS % (AUTO) 82.6 % (40.0-77.0); PLATELET COUNT (AUTO) 138 K/uL (130-400); RED BLOOD CELL COUNT(AUTO) 3.54 MIL/uL (4.50-6.20); RED CELL DISTRIBUTION WIDTH 12.4 % (11.0-15.5)
[2024-10-19 05:22] LABS: ALBUMIN 2.2 g/dL (3.5-5.0); BILIRUBIN,TOTAL 0.4 mg/dL (0.2-1.0); CREATININE 0.8 mg/dL (0.5-1.3); MAGNESIUM 2.2 mg/dL (1.80-2.40); POTASSIUM 4.8 mmol/L (3.5-5.1); TOTAL PROTEIN, SERUM 6.3 g/dL (6.0-8.3)
--- NOTE | 2024-10-19 07:07 | PN ---
[facility] PROGRESS NOTE Date of Service: October 19, 2024 Time of Service: 06:56 SUBJECTIVE: 79-year-old male with underlying history hypertension, hyperlipidemia, type 2 diabetes mellitus, coronary artery disease with prior history of coronary artery bypass grafting in 2003, history of interstitial pulmonary fibrosis with bronchiectasis, history of hospitalization in [facility] for septic shock in 11/2023 who presented to the ER for further evaluation of productive cough, shortness of breath, fevers and chills. Symptoms have been ongoing for the past 2-3 days and patient's reports that patient has been having high-grade fever of greater than 102 F at home yesterday. Patient has been having dyspnea on exertion as well as malaise and lethargy. O ral intake has been poor. Patient was ambulating to the restroom today when he felt weak and per patient had a fall. Patient denies any syncopal episode. Denies any chest pain. Patient has not been taking any antibiotics as outpatient. Patient previously has known history of fibrotic lung disease with bronchiectasis and was hospitalized in [facility] for community-acquired pneumonia and UTI secondary to ESBL E coli in 11/2023. On presentation to the hospital, patient was noted to be hypotensive, tachycard ic with T-max of 97.9 F. [place] [address], hemoglobin 12.7, platelet count of 415293. CMP remarkable for sodium of 132, potassium 3.8, BUN of 24, creatinine 1.4, lactic acid of 2.7, procalcitonin of 1.44. Chest x-ray showed bilateral infiltrates concerning for pneumonia. Patient will be admitted for further treatment and management of severe sepsis, respiratory failure, developing community-acquired pneumonia in the setting of chronic lung disease with interstitial pulmonary fibrosis with bronchiectasis. 10/17/2024: Patient seen resting on the bed. Patient states considerable improvement of his condition. His shortness of breath has improved and is currently on 2 L of oxygen. He is tolerating physical therapy well. CT chest showed Bilateral ground glass opacification in right lower lobe area of consolidation most consistent with infiltrate superimposed on interstitial lung disease. Infectious Disease and pulmonology on board patient is being treated with IV Merrem and doxycycline currently. EKG shows regular and multiple premature complexes-ventricular paced. Pending discharge disposition. 10.19.24: Patient seen resting on the bed.. He is tolerating physical therapy well..He is not requiring oxygen supplementation at this time . Urine culture positive for group B streptococci and Staphylococcus aureus .Respiratory culture showing oral mark and Jessica species .IV Merrem was discontinued and he is started on IV Cefepime .Pending discharge disposition . REVIEW OF SYSTEMS CONSTITUTIONAL: Fevers, chills, malaise, poor oral intake NEUROLOGICAL: Denies headache, amaurosis fugax, motor weakness, sensory deficit, vertigo/spinning sensation, gait abnormalities, or tremors. ENT: No hearing loss, otalgia, otorrhea, rhinitis, rhinorrhea, hoarseness, or sore throat. CARDIOVASCULAR: Denies any exertional angina, dyspnea on exertion, orthopnea, paroxysmal nocturnal dyspnea, palpitations, life-threatening arrhythmias, claudication. PULMONARY: Productive cough, shortness of breath, dyspnea on exertion SLEEP: Denies morning headaches, daytime somnolence or napping. Denies difficulty falling asleep, staying asleep, waking from sleep. Denies knowledge of snoring. GASTROINTESTINAL: Denies any type of dysphagia to either liquids or solids. Denies nausea, vomiting, pyrosis, early satiety, abdominal pain, diarrhea, constipation, or changes in stool consistency or caliber. Denies coffee-ground emesis, hematemesis, hematochezia, or melanotic stools. GENITOURINARY: Denies frequency, urgency, nocturia, hematuria or incontinence (Storage/Irritative symptoms.) Low urinary stream, straining to void, urinary intermittency or hesitancy, splitting of the voiding stream, terminal dribbling. ENDOCRINOLOGIC: Denies polyuria, polydipsia, polyphagia or heat/cold intolerances. HEMATOLOGIC: Denies thrombophilia/previous clots, or coagulopathy/bleeding disorders. ONCOLOGIC: Denies personal history of malignancy. DERMATOLOGIC: Denies rashes or pruritus. PSYCHIATRIC: Denies any suicidal or homicidal ideation. Denies hallucinations. PHYSICAL EXAM GENERAL APPEARANCE: The patient is awake, alert, and oriented, appears debilitated and frail NEUROLOGICAL: Cranial nerves II-XII grossly intact. Motor is 5/5 in bilateral upper and lower extremities proximal to distal. No sensory deficits. HEENT: Face is symmetric. Pupils are equal and reactive. Extraocular movements are intact. NECK: Supple. No JVD. No thyromegaly. No submental, submandibular, pre- /postauricular, occipital or supraclavicular lymphadenopathy. CHEST: Normal chest expansion. No Telemetry. LUNGS: Patient has fine crackles noted of bilateral lung bases with rhonchorous breath sounds, no active wheezing noted CARDIOVASCULAR: Regular. S1 and S2 normal. No appreciable rubs, murmurs or gallops. ABDOMEN: Soft, nontender, and nondistended. There is no rebound, voluntary guarding, or rigidity. : Deferred. No Davila. EXTREMITIES: Non-edematous and not cyanotic. No clubbing. Good capillary refill. SKIN: No skin breakdown. Vital Signs (last 8hr) Date Time Temp Pulse Resp B/P (MAP) Pulse Ox O2 Delivery O2 Flow Rate FiO2 10/19/24 03:58 98.2 70 20 136/70 93 Room Air 10/18/24 23:50 98.2 69 20 144/63 95 Nasal Cannula 2.0 10/18/24 23:21 77 24 N/Cannula Low lpm 2.0 28 10/18/24 23:18 74 28 LABS: Laboratory: Test 10/19/24 05:14 10/19/24 04:22 10/18/24 06:30 Range/Units Whole Blood Glucose 179 H 70-110 MG/DL White Blood Count 4.0 #L 4.8-10.8 K/uL Red Blood Count 3.54 L 4.50-6.20 MIL/uL Hemoglobin 11.8 L 14.0-18.0 g/dL Hematocrit 33.9 L 42-54 % Mean Corpuscular Volume 95.8 79-99 fL Mean Corpuscular Hemoglobin 33.3 H 27.0-33.0 pg Mean Corpuscular Hemoglobin Concent 34.8 32.0-36.0 g/dL Red Cell Distribution Width 12.4 11.0-15.5 % Platelet Count 138 130-400 K/uL Mean Platelet Volume 11.1 H 7.5-10.5 fL Immature Granulocyte % (Auto) 0.5 0-1 % Neutrophils (%) (Auto) 82.6 H 40.0-77.0 % Lymphocytes (%) (Auto) 15.1 L 21.0-51.0 % Monocytes (%) (Auto) 1.8 L 3.0-13.0 % Eosinophils (%) (Auto) 0.0 0.0-8.0 % Basophils (%) (Auto) 0.0 0.0-5.0 % Neutrophils # (Auto) 3.3 1.8-7.7 K/uL Lymphocytes # (Auto) 0.6 L 1.0-4.8 K/uL Monocytes # (Auto) 0.1 0.1-1.0 K/uL Eosinophils # (Auto) 0.00 0.00-0.70 K/uL Basophils # (Auto) 0.00 0.00-0.20 K/uL Absolute Immature Granulocyte (auto 0.02 0-1 K/uL Nucleated Red Blood Cells 0.0 0.0-0.19 % Sodium Level 138 136-145 mmol/L Potassium Level 4.8 3.5-5.1 mmol/L Chloride Level 106 101-111 mmol/L Carbon Dioxide Level 28 21-32 mmol/L Blood Urea Nitrogen 18 7-18 mg/dL Creatinine 0.8 0.5-1.3 mg/dL Glomerular Filtration Rate Calc 91 >90 mL/min Random Glucose 198 #H 70-105 mg/dL Total Calcium 8.7 8.5-10.1 mg/dL Magnesium Level 2.20 1.80-2.40 mg/dL Total Bilirubin 0.4 # 0.2-1.0 mg/dL Aspartate Amino Transf (AST/SGOT) 30 10-37 U/L Alanine Aminotransferase (ALT/SGPT) 25 12-78 U/L Alkaline Phosphatase 128 # 50-136 U/L C-Reactive Protein, Quantitative 90.10 H 0.5-3.0 mg/L Total Protein 6.3 6.0-8.3 g/dL Albumin 2.2 L 3.5-5.0 g/dL Erythrocyte Sedimentation Rate 97 H 0-20 MM/HR B-Type Natriuretic Peptide 130 H 0-100 pg/mL Current Medications Medications (Trade) Dose Ordered Sig/Eliceo Route PRN Reason Start Time Stop Time Status Last Admin Dose Admin Acetaminophen (TYLenol 325MG TAB) 650 mg Q6H PRN PO MILD PAIN (1-3) 10/16/24 17:00 11/15/24 16:59 10/17/24 14:51 650 MG Aspirin (Aspirin 81mg Ec Tab) 81 mg HS PO 10/17/24 21:00 11/16/24 20:59 10/18/24 20:32 81 MG Atorvastatin Calcium (LIPItor 10MG) 10 mg HS PO 10/17/24 21:00 11/16/24 20:59 10/18/24 20:32 10 MG Benzonatate (Tessalon 100mg Caps) 200 mg TID PO 10/18/24 14:00 11/17/24 13:59 10/18/24 20:32 200 MG Budesonide (Pulmicort 0.5 Mg/2ml) 0.5 mg BIDRESP IH 10/16/24 16:30 11/15/24 16:29 10/18/24 18:26 0.5 MG Cefepime HCl (MAXipime 1 GM vial) 1 gm Q12H IVPB 10/18/24 14:00 10/28/24 13:59 10/19/24 03:13 1 GM Ceftriaxone Sodium (ROCEphine 1G INJ) 1 gm Q8H5 IVPB 10/18/24 21:00 10/18/24 14:00 DC Doxycycline Hyclate 250 ml @ 125 mls/hr Q12H IV 10/16/24 16:30 10/26/24 16:29 10/19/24 05:12 125 MLS/HR Enoxaparin Sodium (Lovenox) 30 mg DAILY SQ 10/18/24 09:00 11/17/24 08:59 10/18/24 09:35 30 MG Folic Acid (FOLic ACID 1 MG TABLET) 1 mg DAILY PO 10/18/24 09:00 11/17/24 08:59 10/18/24 09:34 1 MG Guaifenesin/ Dextromethorphan (RobiTUSSin DM 200/20MG 10ML) 10 ml Q6H PRN PO COUGH 10/16/24 17:00 10/17/24 05:47 DC 10/17/24 01:42 10 ML Guaifenesin/ Dextromethorphan (RobiTUSSin DM 200/20MG 10ML) 15 ml Q4H4 PRN PO COUGH 10/17/24 06:00 11/16/24 05:59 10/19/24 06:29 15 ML Insulin Glargine (LANtus 100 UNITS/ML 10 ML VIAL) 10 units HS SQ 10/16/24 21:00 11/15/24 20:59 10/18/24 22:02 10 UNITS Insulin Human Regular (humuLIN R 100 UNIT/ML 3ML) INSULIN SLIDING SCAL... ACHS SQ 10/16/24 16:30 11/15/24 16:29 10/19/24 06:11 2 UNIT Ipratropium Dora (AtrovENT UD) 0.5 mg [id number] IH 10/16/24 18:00 11/15/24 17:59 10/18/24 23:18 0.5 MG Magnesium Sulfate 50 ml @ 0 mls/hr PROTOCOL PRN IV MAGNESIUM PROTOCOL 10/17/24 07:30 11/16/24 07:29 10/17/24 08:38 25 MLS/HR Meropenem (Merrem 1gm) 1 gm Q12H IVPB 10/16/24 16:30 10/18/24 13:58 DC 10/18/24 05:52 1 GM Methylprednisolone Sodium Succinate (Solu-medROL 40MG) 40 mg Q12H IVP 10/18/24 10:30 11/17/24 10:29 10/18/24 21:31 40 MG Metoprolol Tartrate (loprESSOR) 25 mg BID PO 10/17/24 21:00 11/16/24 20:59 10/18/24 20:32 25 MG Pantoprazole Sodium (PROTonix 40MG INJ) 40 mg Q24H IVP 10/16/24 16:30 11/15/24 16:29 10/18/24 16:07 40 MG Pharmacy Profile Note (Pharmacy Communication) 1 each ONCE MISC 10/16/24 16:30 10/16/24 16:29 DC Potassium Chloride 100 ml @ 100 mls/hr AD PRN IV POTASSIUM PROTOCOL 10/17/24 10:30 11/16/24 10:29 Potassium Chloride (K-Dur/Klor-Con 20meq) 20 meq AD PRN PO POTASSIUM PROTOCOL 10/17/24 10:30 11/16/24 10:29 10/17/24 14:50 20 MEQ Potassium Chloride (KCl 10% Elixir 20meq/15ml) 20 meq AD PRN PO POTASSIUM PROTOCOL 10/17/24 10:30 11/16/24 10:29 Sodium Chloride 1,000 ml @ 75 mls/hr [id number] IV 10/16/24 16:30 10/18/24 10:41 DC 10/18/24 09:34 75 MLS/HR Thiamine HCl (Vitamin B-1) 100 mg Q24H IVP 10/16/24 17:00 10/21/24 17:00 10/18/24 16:07 100 MG Vitamin B Complex (Vitamin B-12) 1,000 mcg AM PO 10/18/24 09:00 11/17/24 08:59 10/18/24 09:34 1,000 MCG DIAGNOSTICS / RADIOLOGY: [ ] ASSESSMENT: Severe sepsis secondary to underlying community-acquired pneumonia, POA Acute hypoxemic respiratory failure, POA Multifocal community acquired pneumonia, POA Acute urinary tract infection,POA Underlying history of interstitial pulmonary fibrosis, POA History of bronchiectasis, POA Lactic acidosis, POA Acute kidney injury, POA Status post fall, POA Hypovolemic hyponatremia, POA Hypotension, POA, resolving after fluid resuscitation Mild ketosis with history of Jardiance use as outpatient, POA Moderate protein calorie malnutrition, POA Chronic problem History of multivessel coronary artery disease, POA History of ischemic cardiomyopathy, POA Uncontrolled type 2 diabetes mellitus, POA Hypertension, POA Hyperlipidemia, POA Debility/frailty, POA PLAN: Patient admitted to [facility] Severe sepsis secondary to underlying community-acquired pneumonia, POA Acute hypoxemic respiratory failure, POA Multifocal community acquired pneumonia, POA CT chest findings of bilateral consolidative pneumonia, patient with preexisting chronic lung disease with interstitial pulmonary fibrosis with bronchiectasis continue IV Cefepime and Doxycycline Respiratory culture positive for Jessica albicans Underlying history of interstitial pulmonary fibrosis, POA History of bronchiectasis, POA pending autoimmune work up Pulmonology recommendations appreciated Chronic congestive diastolic heart failure , POA Severe concentric LVH BNP stable continue to monitor Acute urinary tract infection,POA Acute kidney injury, POA SITA resolved Urine culture positive for Staphylococcus aureus and strep B Other: patient on scheduled Pulmicort and Atrovent Maintain map greater than 65 continue Physical therapy patient on sliding scale insulin a.c. and HS, basal Lantus of 10 units daily, patient does have mild ketosis and takes Jardiance as outpatient, if blood ketones negative All labs will be repeated in the morning ATTESTATION BY PHYSICIAN I have seen and examined the patient. I reviewed the documentation, medical decision making, and treatment plan as noted by the resident provider above. I agree with the findings and plan of care. Musa Sierra MD, ANCHU A MD October 19, 2024 07:07
[2024-10-19 08:13] LABS: RHEUMATOID ARTHRITIS FACTOR 13.8 IU/mL (<14.0)
[2024-10-19 09:13] LABS: ANTI-SCLERODERMA 70 <0.2 AI (0.0-0.9)
--- NOTE | 2024-10-19 15:26 | PN ---
INFECTIOUS DISEASE PROGRESS NOTE Date of Service: October 19, 2024 SUBJECTIVE: This is a 79-year-old male patient who was seen and examined at bedside in room 302. Patient is awake, alert and oriented x 3. Continues with productive cough and the sputum culture results came back positive for Jessica albicans. The final urine culture results came back positive for Staphylococcus aureus and strep agalactiae group B. We will continue on cefepime and doxycycline. No other issues reported by nursing. PHYSICAL EXAM EYES: Anicteric. Pupils equal and reactive. HENT: No oral thrush seen, moist Oral mucosa. NECK: Supple, no JVD or thyromegaly. LUNGS: Good air entry. No rales. Productive cough. Oxygen support. CARDIOVASCULAR: S1, S2 regular. No murmur heard. ABDOMEN: Soft, non tender, bowel sounds present, no organomegaly. CENTRAL NERVOUS SYSTEM: Awake, alert, oriented x 3. SKIN: No rashes, no swelling. LYMPHATICS: No peripheral lymphadenopathy. MUSCULOSKELETAL: No joint swelling, erythema or tenderness. EXTREMITIES: No cyanosis or clubbing. BACK: No deformity, no pressure ulcer. GENITOURINARY: No dysuria or hematuria. Vital Sign (Last 12 Hours) 10/19/24 10/19/24 10/19/24 10/19/24 03:58 07:11 07:14 08:30 Temp 98.2 98.1 Pulse 70 78 78 67 Resp 20 20 20 18 B/P (MAP) 136/70 140/57 Pulse Ox 93 95 O2 Delivery Room Air N/A Room Air Room Air FiO2 21 10/19/24 10/19/24 11:11 11:24 Pulse 94 94 Resp 20 18 B/P (MAP) 146/63 Pulse Ox 94 O2 Delivery Room Air Intake & Output (last 24hrs) 10/18/24 10/18/24 10/19/24 15:00 23:00 07:00 Intake Total 530.0 ml 300 ml Output Total 1150 ml 550 ml Balance -620.0 ml -550 ml 300 ml LABS: Laboratory: Test 10/19/24 10:36 10/19/24 04:22 10/18/24 06:30 Range/Units Whole Blood Glucose 264 H 70-110 MG/DL White Blood Count 4.0 #L 4.8-10.8 K/uL Red Blood Count 3.54 L 4.50-6.20 MIL/uL Hemoglobin 11.8 L 14.0-18.0 g/dL Hematocrit 33.9 L 42-54 % Mean Corpuscular Volume 95.8 79-99 fL Mean Corpuscular Hemoglobin 33.3 H 27.0-33.0 pg Mean Corpuscular Hemoglobin Concent 34.8 32.0-36.0 g/dL Red Cell Distribution Width 12.4 11.0-15.5 % Platelet Count 138 130-400 K/uL Mean Platelet Volume 11.1 H 7.5-10.5 fL Immature Granulocyte % (Auto) 0.5 0-1 % Neutrophils (%) (Auto) 82.6 H 40.0-77.0 % Lymphocytes (%) (Auto) 15.1 L 21.0-51.0 % Monocytes (%) (Auto) 1.8 L 3.0-13.0 % Eosinophils (%) (Auto) 0.0 0.0-8.0 % Basophils (%) (Auto) 0.0 0.0-5.0 % Neutrophils # (Auto) 3.3 1.8-7.7 K/uL Lymphocytes # (Auto) 0.6 L 1.0-4.8 K/uL Monocytes # (Auto) 0.1 0.1-1.0 K/uL Eosinophils # (Auto) 0.00 0.00-0.70 K/uL Basophils # (Auto) 0.00 0.00-0.20 K/uL Absolute Immature Granulocyte (auto 0.02 0-1 K/uL Nucleated Red Blood Cells 0.0 0.0-0.19 % Sodium Level 138 136-145 mmol/L Potassium Level 4.8 3.5-5.1 mmol/L Chloride Level 106 101-111 mmol/L Carbon Dioxide Level 28 21-32 mmol/L Blood Urea Nitrogen 18 7-18 mg/dL Creatinine 0.8 0.5-1.3 mg/dL Glomerular Filtration Rate Calc 91 >90 mL/min Random Glucose 198 #H 70-105 mg/dL Total Calcium 8.7 8.5-10.1 mg/dL Magnesium Level 2.20 1.80-2.40 mg/dL Total Bilirubin 0.4 # 0.2-1.0 mg/dL Aspartate Amino Transf (AST/SGOT) 30 10-37 U/L Alanine Aminotransferase (ALT/SGPT) 25 12-78 U/L Alkaline Phosphatase 128 # 50-136 U/L C-Reactive Protein, Quantitative 90.10 H 0.5-3.0 mg/L Total Protein 6.3 6.0-8.3 g/dL Albumin 2.2 L 3.5-5.0 g/dL Erythrocyte Sedimentation Rate 97 H 0-20 MM/HR B-Type Natriuretic Peptide 130 H 0-100 pg/mL Rheumatoid Factor 13.8 <14.0 IU/mL Anti-Nuclear Antibody Screen Positive H Negative Anti-Nuclear Antibody Interpret Comment . CARLOS-1 Antibody <0.2 0.0-0.9 AI SS-A/Ro Antibody <0.2 0.0-0.9 AI SS-B/La Antibody <0.2 0.0-0.9 AI Sm (Oneil) IgG Antibody, Quant <0.2 0.0-0.9 AI PLANT PULLER IgG Antibody, Quantitative 1.2 H 0.0-0.9 AI Scl-70 (Scleroderma) Antibody <0.2 0.0-0.9 AI Anti-Double Strand DNA Antibody 2 0-9 IU/mL Chromatin Antibody <0.2 0.0-0.9 AI Anti-Centromere IgG Antibody <0.2 0.0-0.9 AI ASSESSMENT: Urinary tract infection with Staphylococcus aureus and strep agalactiae group B. Pneumonia. Acute hypoxic respiratory failure, requiring oxygen support. Status post mechanical fall. Leukocytosis, resolved. History of interstitial pulmonary fibrosis, Coronary artery disease. Diabetes mellitus. PLAN: Continue cefepime IV. Continue doxycycline. Continue GI prophylaxis. Continue antidiabetics. We will monitor electrolytes. Continue oxygen support. This case was reviewed and discussed with my supervising physician and the above assessment and plan was formulated and agreed upon. ATTESTATION BY PHYSICIAN I have seen and examined the patient. I reviewed the documentation, medical decision making, and treatment plan as noted by the mid-level provider above. I agree with the findings and plan of care. JUANITA PÉREZ MD, [facility] October 19, 2024 15:25
--- NOTE | 2024-10-19 18:17 | PN ---
[facility] PROGRESS NOTE Date Patient Seen: October 19, 2024 Time of Visit: 18:10 Supervising Physician: [Dr. Spencer] Consulting Physician: Dr Rodríguez Outpatient Specialists: [ ] Inpatient Consults: [ ] PROBLEM LIST: Acute hypoxic respiratory failure, POA Community-acquired pneumonia, POA Congestive heart failure, POA LVEF of 50-55% per 2D echo 10/17/2024 Stage I diastolic dysfunction per 2D echo 10/17/2024 Severe concentric left ventricular hypertrophy Concern for interstitial lung disease pending autoimmune workup Acute kidney injury, POA Lactic acidosis, POA DM type 2, POA Hyperlipidemia, POA Hypertension, POA History of CAD s/p CABG INTERVAL HISTORY: 10/18/24- Pt awake alert and oriented. he has been working with PT with exertion on ambulation as per pt. At bedrest mild distress currently on 2 L via NC. will start steroid solumedrol 40mg IV q12hrs. Pending autoimmune workup. 10/19 patient is evaluated at bedside. He is saturating well on room air, no current respiratory distress. 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 He is pending a 6 min walk. Continues on antibiotics for pneumonia per ID. REVIEW OF SYSTEMS: 12 point ROS reviewed with patient. Pertinent positives mentioned above. Otherwise negative. PHYSICAL EXAM: GENERAL: alert, weak, awake oriented x 3 HEENT: EOMI, Sclera non icteric, moist mucosa NECK: Supple, no JVD, trachea midline LUNGS: Scattered rales on auscultation HEART: Regular rate and rhythm. Normal S1 and S2, without murmurs ABD: Abdomen soft, nontender. Bowel sounds present EXT: No clubbing cyanosis 2+ bilateral lower extremity edema NEURO: Alert and oriented to person, follows commands Vital Signs (last 8hr) Date Time Temp Pulse Resp B/P (MAP) Pulse Ox O2 Delivery O2 Flow Rate FiO2 10/19/24 11:24 94 18 146/63 94 Room Air 10/19/24 11:11 94 20 LABS: Hematology Labs: Test 10/19/24 04:22 10/18/24 06:30 Range/Units White Blood Count 4.0 #L 4.8-10.8 K/uL Red Blood Count 3.54 L 4.50-6.20 MIL/uL Hemoglobin 11.8 L 14.0-18.0 g/dL Hematocrit 33.9 L 42-54 % Mean Corpuscular Volume 95.8 79-99 fL Mean Corpuscular Hemoglobin 33.3 H 27.0-33.0 pg Mean Corpuscular Hemoglobin Concent 34.8 32.0-36.0 g/dL Red Cell Distribution Width 12.4 11.0-15.5 % Platelet Count 138 130-400 K/uL Mean Platelet Volume 11.1 H 7.5-10.5 fL Immature Granulocyte % (Auto) 0.5 0-1 % Neutrophils (%) (Auto) 82.6 H 40.0-77.0 % Lymphocytes (%) (Auto) 15.1 L 21.0-51.0 % Monocytes (%) (Auto) 1.8 L 3.0-13.0 % Eosinophils (%) (Auto) 0.0 0.0-8.0 % Basophils (%) (Auto) 0.0 0.0-5.0 % Neutrophils # (Auto) 3.3 1.8-7.7 K/uL Lymphocytes # (Auto) 0.6 L 1.0-4.8 K/uL Monocytes # (Auto) 0.1 0.1-1.0 K/uL Eosinophils # (Auto) 0.00 0.00-0.70 K/uL Basophils # (Auto) 0.00 0.00-0.20 K/uL Absolute Immature Granulocyte (auto 0.02 0-1 K/uL Nucleated Red Blood Cells 0.0 0.0-0.19 % Erythrocyte Sedimentation Rate 97 H 0-20 MM/HR Chemistry Labs: Test 10/19/24 16:14 10/19/24 04:22 10/18/24 06:30 Range/Units Whole Blood Glucose 273 H 70-110 MG/DL Sodium Level 138 136-145 mmol/L Potassium Level 4.8 3.5-5.1 mmol/L Chloride Level 106 101-111 mmol/L Carbon Dioxide Level 28 21-32 mmol/L Blood Urea Nitrogen 18 7-18 mg/dL Creatinine 0.8 0.5-1.3 mg/dL Glomerular Filtration Rate Calc 91 >90 mL/min Random Glucose 198 #H 70-105 mg/dL Total Calcium 8.7 8.5-10.1 mg/dL Magnesium Level 2.20 1.80-2.40 mg/dL Total Bilirubin 0.4 # 0.2-1.0 mg/dL Aspartate Amino Transf (AST/SGOT) 30 10-37 U/L Alanine Aminotransferase (ALT/SGPT) 25 12-78 U/L Alkaline Phosphatase 128 # 50-136 U/L C-Reactive Protein, Quantitative 90.10 H 0.5-3.0 mg/L Total Protein 6.3 6.0-8.3 g/dL Albumin 2.2 L 3.5-5.0 g/dL B-Type Natriuretic Peptide 130 H 0-100 pg/mL DIAGNOSTICS / RADIOLOGY RESULTS: [ ] PLAN continue abx for CAP per ID Stop solumedrol Follow up with rheumatology outpatient for further evaluation 6 min walk prior to DC DCP per primary NEURO: Minimize central acting medications as possible. Maintain fall precautions, adequate lighting during the day PULMONARY: Supplemental 02 as needed. Maintain aspiration precautions at all times CARDIOVASCULAR: Follow hemodynamics. Vital signs per facility protocol GI & NUTRITION: Continue with nutritional support. Continue stool softeners and laxatives as needed. KIDNEYS & ELECTROLYTES: Strict monitoring of intake, output and overall fluid balance. Avoid nephrotoxic medications to the extent possible. Medications to be dosed according to renal function. Monitor electrolytes and replace as needed ENDOCRINE: Maintain blood glucose between 100-180 at all times. Hypoglycemia protocol in place INFECTIOUS DISEASE: Trend temperature, WBC and procalcitonin level Follow cultures, deescalate antibiotics as soon as possible. Panculture if new onset fever ONCOLOGY/HEMATOLOGY/COAGULATION: Monitor for s/s of bleeding Monitor hemoglobin, coagulation studies as needed SKIN: Pressure ulcer prevention per facility protocol Specialty mattress ORTHO/REHAB: Continue PT/OT Prophylaxis: Continue GI and DVT prophylaxis Code Status: Full Resuscitation Disposition: TBD Other: YUMIKO RUCKER October 19, 2024 18:17
[2024-10-19 23:09] LABS: MYCOPLASMA AB IGM <770 U/mL (0-769)
[2024-10-20] VITALS (11 sets, daily range): BP systolic 127–149; BP diastolic 59–80; PULSE 59–91; RESP 18–24; TEMP 97.6–98.2; O2SAT 87–97
[2024-10-20 04:11] LABS: BASOPHILS # (AUTO) 0.01 K/uL (0.00-0.20); BASOPHILS % (AUTO) 0.1 % (0.0-5.0); EOSINOPHILS # (AUTO) 0.01 K/uL (0.00-0.70); EOSINOPHILS % (AUTO) 0.1 % (0.0-8.0); HEMATOCRIT 35.7 % (42-54); IMMATURE GRANULOCYTE ABSOLUTE 0.04 K/uL (0-1); LYMPHOCYTES # (AUTO) 1.7 K/uL (1.0-4.8); LYMPHOCYTES % (AUTO) 21.1 % (21.0-51.0); MEAN CORPUSCULAR HEMOGLOBIN 32.8 pg (27.0-33.0); MEAN CORPUSCULAR HGB CONC 34.5 g/dL (32.0-36.0); MEAN CORPUSCULAR VOLUME 95.2 fL (79-99); MONOCYTES # (AUTO) 0.6 K/uL (0.1-1.0); MONOCYTES % (AUTO) 6.7 % (3.0-13.0); NEUTROPHILS # (AUTO) 5.9 K/uL (1.8-7.7); NEUTROPHILS % (AUTO) 71.5 % (40.0-77.0); PLATELET COUNT (AUTO) 162 K/uL (130-400); RED BLOOD CELL COUNT(AUTO) 3.75 MIL/uL (4.50-6.20); RED CELL DISTRIBUTION WIDTH 12.5 % (11.0-15.5); WHITE BLOOD COUNT (AUTO) 8.3 K/uL (4.8-10.8)
[2024-10-20 04:29] LABS: ALBUMIN 2.2 g/dL (3.5-5.0); BILIRUBIN,TOTAL 0.4 mg/dL (0.2-1.0); CREATININE 0.9 mg/dL (0.5-1.3); POTASSIUM 3.7 mmol/L (3.5-5.1)
--- NOTE | 2024-10-20 12:20 | PN ---
INFECTIOUS DISEASE PROGRESS NOTE Date of Service: October 20, 2024 SUBJECTIVE: This is a 79-year-old male patient who was seen and examined at bedside in room 302. Patient is awake, alert and oriented x 3. Patient stated he is feeling a lot much better today and the cough has improved. From Infectious Disease standpoint patient can be discharged to home on levofloxacin and Ceftin for 7 days. Prescription was written. PHYSICAL EXAM EYES: Anicteric. Pupils equal and reactive. HENT: No oral thrush seen, moist Oral mucosa. NECK: Supple, no JVD or thyromegaly. LUNGS: Good air entry. No rales. Productive cough. Oxygen support. CARDIOVASCULAR: S1, S2 regular. No murmur heard. ABDOMEN: Soft, non tender, bowel sounds present, no organomegaly. CENTRAL NERVOUS SYSTEM: Awake, alert, oriented x 3. SKIN: No rashes, no swelling. LYMPHATICS: No peripheral lymphadenopathy. MUSCULOSKELETAL: No joint swelling, erythema or tenderness. EXTREMITIES: No cyanosis or clubbing. BACK: No deformity, no pressure ulcer. GENITOURINARY: No dysuria or hematuria. Vital Sign (Last 12 Hours) 10/20/24 10/20/24 10/20/24 10/20/24 00:31 04:00 06:46 06:50 Temp 97.5 97.5 Pulse 78 73 88 88 Resp 24 22 18 20 B/P (MAP) 134/80 127/59 Pulse Ox 96 95 O2 Delivery Room Air Room Air N/A Room Air FiO2 21 10/20/24 10/20/24 07:49 11:25 Temp 97.9 97.9 Pulse 59 91 Resp 18 18 B/P (MAP) 142/63 149/75 Pulse Ox 97 91 O2 Delivery Nasal Cannula Room Air O2 Flow Rate 2.0 Intake & Output (last 24hrs) 10/19/24 10/19/24 10/20/24 15:00 23:00 07:00 Intake Total 300 ml Balance 300 ml LABS: Laboratory: Test 10/20/24 10:28 10/20/24 03:55 10/19/24 19:42 10/19/24 04:22 Range/Units Whole Blood Glucose 148 H 70-110 MG/DL White Blood Count 8.3 # 4.8-10.8 K/uL Red Blood Count 3.75 L 4.50-6.20 MIL/uL Hemoglobin 12.3 L 14.0-18.0 g/dL Hematocrit 35.7 L 42-54 % Mean Corpuscular Volume 95.2 79-99 fL Mean Corpuscular Hemoglobin 32.8 27.0-33.0 pg Mean Corpuscular Hemoglobin Concent 34.5 32.0-36.0 g/dL Red Cell Distribution Width 12.5 11.0-15.5 % Platelet Count 162 130-400 K/uL Mean Platelet Volume 10.8 H 7.5-10.5 fL Immature Granulocyte % (Auto) 0.5 0-1 % Neutrophils (%) (Auto) 71.5 40.0-77.0 % Lymphocytes (%) (Auto) 21.1 21.0-51.0 % Monocytes (%) (Auto) 6.7 3.0-13.0 % Eosinophils (%) (Auto) 0.1 0.0-8.0 % Basophils (%) (Auto) 0.1 0.0-5.0 % Neutrophils # (Auto) 5.9 1.8-7.7 K/uL Lymphocytes # (Auto) 1.7 1.0-4.8 K/uL Monocytes # (Auto) 0.6 0.1-1.0 K/uL Eosinophils # (Auto) 0.01 0.00-0.70 K/uL Basophils # (Auto) 0.01 0.00-0.20 K/uL Absolute Immature Granulocyte (auto 0.04 0-1 K/uL Nucleated Red Blood Cells 0.0 0.0-0.19 % Sodium Level 143 136-145 mmol/L Potassium Level 3.7 3.5-5.1 mmol/L Chloride Level 109 101-111 mmol/L Carbon Dioxide Level 31 21-32 mmol/L Blood Urea Nitrogen 20 H 7-18 mg/dL Creatinine 0.9 0.5-1.3 mg/dL Glomerular Filtration Rate Calc 87 >90 mL/min Random Glucose 113 H 70-105 mg/dL Lactic Acid Level 1.5 0.8-2.5 mmol/L Total Calcium 8.4 L 8.5-10.1 mg/dL Total Bilirubin 0.4 0.2-1.0 mg/dL Aspartate Amino Transf (AST/SGOT) 27 10-37 U/L Alanine Aminotransferase (ALT/SGPT) 28 12-78 U/L Alkaline Phosphatase 117 50-136 U/L C-Reactive Protein, Quantitative 41.40 H 0.5-3.0 mg/L Total Protein 6.0 6.0-8.3 g/dL Albumin 2.2 L 3.5-5.0 g/dL Bedside Glucose Comment Notified Nurse Magnesium Level 2.20 1.80-2.40 mg/dL ASSESSMENT: Urinary tract infection with Staphylococcus aureus and strep agalactiae group B. Pneumonia. Acute hypoxic respiratory failure, requiring oxygen support. Status post mechanical fall. Leukocytosis, resolved. History of interstitial pulmonary fibrosis, Coronary artery disease. Diabetes mellitus. PLAN: Patient is cleared for discharged on levofloxacin and Ceftin. Prescription was written. This case was reviewed and discussed with my supervising physician and the above assessment and plan was formulated and agreed upon. ATTESTATION BY PHYSICIAN I have seen and examined the patient. I reviewed the documentation, medical decision making, and treatment plan as noted by the mid-level provider above. I agree with the findings and plan of care. JUANITA PÉREZ MD, [facility] October 20, 2024 12:20
--- NOTE | 2024-10-20 14:05 | PN ---
[facility] PROGRESS NOTE Date Patient Seen: October 20, 2024 Time of Visit: 13:56 Supervising Physician: [Dr. Britton] Consulting Physician: Dr Rodríguez Outpatient Specialists: [ ] Inpatient Consults: [ ] PROBLEM LIST: Acute hypoxic respiratory failure, POA, improved Community-acquired pneumonia, POA, treated Congestive heart failure, POA LVEF of 50-55% per 2D echo 10/17/2024 Stage I diastolic dysfunction per 2D echo 10/17/2024 Severe concentric left ventricular hypertrophy Interstitial lung disease Acute kidney injury, POA, improved Lactic acidosis, POA, resolved DM type 2, POA Hyperlipidemia, POA Hypertension, POA History of CAD s/p CABG INTERVAL HISTORY: 10/18/24- Pt awake alert and oriented. he has been working with PT with exertion on ambulation as per pt. At bedrest mild distress currently on 2 L via NC. will start steroid solumedrol 40mg IV q12hrs. Pending autoimmune workup. 10/19 patient is evaluated at bedside. He is saturating well on room air, no current respiratory distress. 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 He is pending a 6 min walk. Continues on antibiotics for pneumonia per ID. 10/20 patient is evaluated at bedside. He continues with supplemental oxygen. He failed a 6 minute walk x2. Patient will need home oxygen prior to discharge. He is otherwise feeling well without fever or cough. Follow up with rheumtology outpatient for evaluation of autoimmune condition. REVIEW OF SYSTEMS: 12 point ROS reviewed with patient. Pertinent positives mentioned above. Otherwise negative. PHYSICAL EXAM: GENERAL: alert, weak, awake oriented x 3 HEENT: EOMI, Sclera non icteric, moist mucosa NECK: Supple, no JVD, trachea midline LUNGS: Scattered rales on auscultation HEART: Regular rate and rhythm. Normal S1 and S2, without murmurs ABD: Abdomen soft, nontender. Bowel sounds present EXT: No clubbing cyanosis 2+ bilateral lower extremity edema NEURO: Alert and oriented to person, follows commands Vital Signs (last 8hr) Date Time Temp Pulse Resp B/P (MAP) Pulse Ox O2 Delivery O2 Flow Rate FiO2 10/20/24 12:18 77 20 21 86 22 21 84 20 28 10/20/24 11:25 97.9 91 18 149/75 91 Room Air 10/20/24 07:49 97.9 59 18 142/63 97 Nasal Cannula 2.0 10/20/24 06:50 88 20 N/A Room Air 21 10/20/24 06:46 88 18 LABS: Hematology Labs: Test 10/20/24 03:55 Range/Units White Blood Count 8.3 # 4.8-10.8 K/uL Red Blood Count 3.75 L 4.50-6.20 MIL/uL Hemoglobin 12.3 L 14.0-18.0 g/dL Hematocrit 35.7 L 42-54 % Mean Corpuscular Volume 95.2 79-99 fL Mean Corpuscular Hemoglobin 32.8 27.0-33.0 pg Mean Corpuscular Hemoglobin Concent 34.5 32.0-36.0 g/dL Red Cell Distribution Width 12.5 11.0-15.5 % Platelet Count 162 130-400 K/uL Mean Platelet Volume 10.8 H 7.5-10.5 fL Immature Granulocyte % (Auto) 0.5 0-1 % Neutrophils (%) (Auto) 71.5 40.0-77.0 % Lymphocytes (%) (Auto) 21.1 21.0-51.0 % Monocytes (%) (Auto) 6.7 3.0-13.0 % Eosinophils (%) (Auto) 0.1 0.0-8.0 % Basophils (%) (Auto) 0.1 0.0-5.0 % Neutrophils # (Auto) 5.9 1.8-7.7 K/uL Lymphocytes # (Auto) 1.7 1.0-4.8 K/uL Monocytes # (Auto) 0.6 0.1-1.0 K/uL Eosinophils # (Auto) 0.01 0.00-0.70 K/uL Basophils # (Auto) 0.01 0.00-0.20 K/uL Absolute Immature Granulocyte (auto 0.04 0-1 K/uL Nucleated Red Blood Cells 0.0 0.0-0.19 % Chemistry Labs: Test 10/20/24 10:28 10/20/24 03:55 10/19/24 19:42 10/19/24 04:22 Range/Units Whole Blood Glucose 148 H 70-110 MG/DL Sodium Level 143 136-145 mmol/L Potassium Level 3.7 3.5-5.1 mmol/L Chloride Level 109 101-111 mmol/L Carbon Dioxide Level 31 21-32 mmol/L Blood Urea Nitrogen 20 H 7-18 mg/dL Creatinine 0.9 0.5-1.3 mg/dL Glomerular Filtration Rate Calc 87 >90 mL/min Random Glucose 113 H 70-105 mg/dL Lactic Acid Level 1.5 0.8-2.5 mmol/L Total Calcium 8.4 L 8.5-10.1 mg/dL Total Bilirubin 0.4 0.2-1.0 mg/dL Aspartate Amino Transf (AST/SGOT) 27 10-37 U/L Alanine Aminotransferase (ALT/SGPT) 28 12-78 U/L Alkaline Phosphatase 117 50-136 U/L C-Reactive Protein, Quantitative 41.40 H 0.5-3.0 mg/L Total Protein 6.0 6.0-8.3 g/dL Albumin 2.2 L 3.5-5.0 g/dL Bedside Glucose Comment Notified Nurse Magnesium Level 2.20 1.80-2.40 mg/dL DIAGNOSTICS / RADIOLOGY RESULTS: [ ] PLAN continue abx for CAP per ID Stop solumedrol Follow up with rheumatology outpatient for further evaluation 6 min walk prior to DC DCP per primary NEURO: Minimize central acting medications as possible. Maintain fall precautions, adequate lighting during the day PULMONARY: Supplemental 02 as needed. Maintain aspiration precautions at all times CARDIOVASCULAR: Follow hemodynamics. Vital signs per facility protocol GI & NUTRITION: Continue with nutritional support. Continue stool softeners and laxatives as needed. KIDNEYS & ELECTROLYTES: Strict monitoring of intake, output and overall fluid balance. Avoid nephrotoxic medications to the extent possible. Medications to be dosed according to renal function. Monitor electrolytes and replace as needed ENDOCRINE: Maintain blood glucose between 100-180 at all times. Hypoglycemia protocol in place INFECTIOUS DISEASE: Trend temperature, WBC and procalcitonin level Follow cultures, deescalate antibiotics as soon as possible. Panculture if new onset fever ONCOLOGY/HEMATOLOGY/COAGULATION: Monitor for s/s of bleeding Monitor hemoglobin, coagulation studies as needed SKIN: Pressure ulcer prevention per facility protocol Specialty mattress ORTHO/REHAB: Continue PT/OT Prophylaxis: Continue GI and DVT prophylaxis Code Status: Full Resuscitation Disposition: TBD Other: YUMIKO RUCKER October 20, 2024 14:05
--- NOTE | 2024-10-20 14:39 | DS ---
Discharge Summary Hospital Course Summary: Date of service : 10.21.24 79-year-old male with underlying history hypertension, hyperlipidemia, type 2 diabetes mellitus, coronary artery disease with prior history of coronary artery bypass grafting in 2003, history of interstitial pulmonary fibrosis with bronchiectasis, history of hospitalization in [facility] [place] for septic shock in 11/2023 who presented to the ER for further evaluation of productive cough, shortness of breath, fevers and chills. Symptoms have been ongoing for the past 2-3 days and patient's reports that patient has been having high-grade fever of greater than 102 F at home yesterday. Patient has been having dyspnea on exertion as well as malaise and lethargy. Oral intake has been poor. Patient was ambulating to the restroom today when he felt weak and per patient had a fall. Patient denies any syncopal episode. Denies any chest pain. Patient has not been taking any antibiotics as outpatient. Patient previously has known history of fibrotic lung disease with bronchiectasis and was hospitalized in [facility] [place] for community-acquired pneumonia and UTI secondary to ESBL E coli in 11/2023. On presentation to the hospital, patient was noted to be hypotensive, ta chycardic with T-max of 97.9 F. [place] [address], hemoglobin 12.7, platelet count of 360324. CMP remarkable for sodium of 132, potassium 3.8, BUN of 24, creatinine 1.4, lactic acid of 2.7, procalcitonin of 1.44. Chest x-ray showed bilateral infiltrates concerning for pneumonia. Patient will be admitted for further treatment and management of severe sepsis, respiratory failure, developing community-acquired pneumonia in the setting of chronic lung disease with interstitial pulmonary fibrosis with bronchiectasis. 10/17/2024: Patient seen resting on the bed. Patient states considerable improvement of his condition. His shortness of breath has improved and is currently on 2 L of oxygen. He is tolerating physical therapy well. CT chest showed Bilateral ground glass opacification in right lower lobe area of consolidation most consistent with infiltrate superimposed on interstitial lung disease. Infectious Disease and pulmonology on board patient is being treated with IV Merrem and doxycycline currently. EKG shows regular and multiple premature complexes-ventricular paced. Pending discharge disposition. 10.19.24: Patient seen resting on the bed.. He is tolerating physical therapy well..He is not requiring oxygen supplementation at this time . Urine culture positive for group B streptococci and Staphylococcus aureus .Respiratory culture showing oral mark and Jessica species .IV Merrem was discontinued and he is started on IV Cefepime .Pending discharge disposition . 10.20.24: Patient's condition has improved. However, Patient has failed 6 minute walk. He will be requiring home oxygen set up prior to discharge. His ALEXANDRA panel was positive for CREPE LAMINATOR OPERATOR-suggesting mixed connective tissue disease. The pathology and prognosis of autoimmune disease was discussed with the patient and he is required to follow up with the etymology professor as outpatient for further treatment. He will be sent home with Ceftin and levofloxacin. Patient is clinically stable at the time of discharge. 10.21.24: Patient is stable . He will be discharged home when the home oxygen is approved . Linotyper(s): [facility] CONSULTATION NOTE Date Patient Seen: October 16, 2024 Time of Visit: 2044 Supervising Physician: Deven Tee Reason for Consultation: Acute Hypoxic Respiratory Failure Consulting Physician: Dr Rodríguez Outpatient Specialists: [ ] Inpatient Consults: [ ] PROBLEM LIST: Acute hypoxic respiratory failure, POA Community-acquired pneumonia, POA Suspected congestive heart failure, POA Acute kidney injury, POA Lactic acidosis, POA DM type 2, POA Hyperlipidemia, POA Hypertension, POA History of CAD s/p CABG PLAN: Admit per primary Continue O2 therapy Keep head of bed above 30 Consider diuretics if continues to have high oxygen demand DuoNeb q.6 Incentive spirometry Antibiotic management per primary Follow up culture results Recommend 2D echo Rest of plan care of primary/cardiology HPI: 79-year-old male with past medical history of hypertension, hyperlipidemia, type 2 diabetes mellitus, coronary artery disease with prior history of coronary artery bypass grafting in 2003 who presented to ED with complaint of productive cough, shortness of breath, fevers and chills and found to have acute hypoxic respiratory failure, community-acquired pneumonia, and possible congestive heart failure. Per report his symptoms has been ongoing for the past 2-3 days. Today patient was also noted to have high-grade fever prompting ER visit. On initial evaluation in ED patient was noted to have low systolic blood pressure, and heart rate above 100 with T-max of 97.9 F. Patient was subsequently started on IV fluids with significant improvement on his blood pressure. In ED his initial CBC showed WBC [place] more than 96768, hemoglobin 12.7, platelet count of 103951. His chemistry is remarkable for BUN of 24, creatinine 1.4, lactic acid of 2.7, procalcitonin of 1.44. Chest x-ray showed bilateral infiltrates concerning for possible pneumonia. [facility] pulmonology is consulted for evaluation of pneumonia and acute hypoxic respiratory failure. Patient was seen and examined in ED with present at bedside. At present patient is currently on O2 therapy the with appropriate oxygen saturation, normal sinus rhythm on the monitor, with adequate systolic blood pressure. Patient denies any headache, chest pain, back pain, fever, ab dominal pain, but complains of mild shortness of breath, there is also scattered rales on auscultation on both lung shelley, with associated bilateral lower extremity 2+ pitting edema. Patient is an ex-smoker, drinks alcohol occasionally, and denies any illicit drug use. Patient is not vaccinated against COVID virus and does not take flu shot. PAST MEDICAL HX: see above PAST SURGICAL HX: noncontributory SOCIAL HISTORY: See HPI Coded Allergies: No Known Drug Allergies (Verified Allergy, 08/18/13) REVIEW OF SYSTEMS: 12 point ROS reviewed with patient. Pertinent positives mentioned above. Otherwise negative. PHYSICAL EXAM: GENERAL: alert, weak, awake oriented x 3 HEENT: EOMI, Sclera non icteric, moist mucosa NECK: Supple, no JVD, trachea midline LUNGS: Scattered rales on auscultation HEART: Regular rate and rhythm. Normal S1 and S2, without murmurs ABD: Abdomen soft, nontender. Bowel sounds present EXT: No clubbing cyanosis 2+ bilateral lower extremity edema NEURO: Alert and oriented to person, follows commands Vital Signs (last 8hr) Date Time Temp Pulse Resp B/P (MAP) Pulse Ox O2 Delivery O2 Flow Rate FiO2 10/17/24 16:32 98.1 94 18 128/61 93 Nasal Cannula 2.0 10/17/24 13:03 98.1 97 18 117/57 92 Nasal Cannula 2.0 10/17/24 11:10 101 24 N/Cannula Low lpm 2.0 10/17/24 11:08 101 24 LABS: Hematology Labs: Test 10/17/24 03:36 10/16/24 14:01 Range/Units White Blood Count 8.3 # 4.8-10.8 K/uL Red Blood Count 3.58 L 4.50-6.20 MIL/uL Hemoglobin 11.9 L 14.0-18.0 g/dL Hematocrit 34.8 L 42-54 % Mean Corpuscular Volume 97.2 79-99 fL Mean Corpuscular Hemoglobin 33.2 H 27.0-33.0 pg Mean Corpuscular Hemoglobin Concent 34.2 32.0-36.0 g/dL Red Cell Distribution Width 13.0 11.0-15.5 % Platelet Count 105 L 130-400 K/uL Mean Platelet Volume 11.7 H 7.5-10.5 fL Immature Granulocyte % (Auto) 1.0 0-1 % Neutrophils (%) (Auto) 74.3 40.0-77.0 % Lymphocytes (%) (Auto) 17.2 L 21.0-51.0 % Monocytes (%) (Auto) 7.1 3.0-13.0 % Eosinophils (%) (Auto) 0.2 0.0-8.0 % Basophils (%) (Auto) 0.2 0.0-5.0 % Neutrophils # (Auto) 6.1 1.8-7.7 K/uL Lymphocytes # (Auto) 1.4 1.0-4.8 K/uL Monocytes # (Auto) 0.6 0.1-1.0 K/uL Eosinophils # (Auto) 0.02 0.00-0.70 K/uL Basophils # (Auto) 0.02 0.00-0.20 K/uL Absolute Immature Granulocyte (auto 0.08 0-1 K/uL Nucleated Red Blood Cells 0.0 0.0-0.19 % White Cell Morphology Comment See comments Erythrocyte Sedimentation Rate 109 H 0-20 MM/HR Chemistry Labs: Test 10/17/24 12:54 10/17/24 03:36 10/16/24 20:14 10/16/24 17:17 Range/Units Whole Blood Glucose 104 70-110 MG/DL Sodium Level 140 136-145 mmol/L Potassium Level 3.6 3.5-5.1 mmol/L Chloride Level 107 101-111 mmol/L Carbon Dioxide Level 23 21-32 mmol/L Blood Urea Nitrogen 17 7-18 mg/dL Creatinine 0.8 0.5-1.3 mg/dL Glomerular Filtration Rate Calc 91 >90 mL/min Random Glucose 105 # 70-105 mg/dL Total Calcium 7.8 L 8.5-10.1 mg/dL Magnesium Level 1.50 L 1.80-2.40 mg/dL Total Bilirubin 1.6 #H 0.2-1.0 mg/dL Aspartate Amino Transf (AST/SGOT) 23 10-37 U/L Alanine Aminotransferase (ALT/SGPT) 25 # 12-78 U/L Alkaline Phosphatase 103 50-136 U/L Total Protein 6.0 6.0-8.3 g/dL Albumin 2.2 #L 3.5-5.0 g/dL Lactic Acid Level 1.8 0.8-2.5 mmol/L Whole Blood Ketones Quantitative 0.9 H 0.0-0.6 mmol/L Test 10/16/24 14:01 Range/Units Hemoglobin A1c 7.7 H 4.0-6.0 % Estimated Average Glucose (eAG) 174 H 70-126 mg/dL Direct Bilirubin 1.8 H 0.0-0.3 mg/dL Total Creatine Kinase 70 # 21-232 U/L Troponin I High Sensitivity 20 4-75 ng/L C-Reactive Protein, Quantitative 240.00 H 0.5-3.0 mg/L B-Type Natriuretic Peptide 150 H 0-100 pg/mL Procalcitonin 1.44 H 0.05-0.5 ng/mL Thyroid Stimulating Hormone (TSH) 0.89 0.36-3.74 uIU/mL Coagulation Labs: Test 10/16/24 14:01 Range/Units Prothrombin Time 12.0 H 9.6-11.6 SEC Prothromb Time International Ratio 1.15 0.85-1.15 Activated Partial Thromboplast Time 33.6 26.3-35.5 SEC DIAGNOSTICS / RADIOLOGY RESULTS: CHEST 1VW HISTORY: Altered COMPARISON: 11/20/2023 FINDINGS: A frontal projection of the chest was obtained. Mild bilateral pulmonary infiltrates are seen may be related to mild pulmonary vascular congestion with possible superimposed pneumonitis. Poststernotomy changes are seen. The heart is enlarged. Degenerative changes of the thoracolumbar spine are present. Degenerative changes are seen. No evidence of aortic calcification is seen. IMPRESSION: 1. Bilateral pulmonary infiltrates are seen suggestive of pulmonary vascular congestion with possible superimposed pneumonitis. PLAN NEURO: Minimize central acting medications as possible. Maintain fall precautions, adequate lighting during the day PULMONARY: Supplemental 02 as needed. Maintain aspiration precautions at all times CARDIOVASCULAR: Follow hemodynamics. Vital signs per facility protocol GI & NUTRITION: Continue with nutritional support. Continue stool softeners and laxatives as needed. KIDNEYS & ELECTROLYTES: Strict monitoring of intake, output and overall fluid balance. Avoid nephrotoxic medications to the extent possible. Medications to be dosed according to renal function. Monitor electrolytes and replace as needed ENDOCRINE: Maintain blood glucose between 100-180 at all times. Hypoglycemia protocol in place INFECTIOUS DISEASE: Trend temperature, WBC and procalcitonin level Follow cultures, deescalate antibiotics as soon as possible. Panculture if new onset fever ONCOLOGY/HEMATOLOGY/COAGULATION: Monitor for s/s of bleeding Monitor hemoglobin, coagulation studies as needed SKIN: Pressure ulcer prevention per facility protocol Specialty mattress ORTHO/REHAB: Continue PT/OT Prophylaxis: Continue GI and DVT prophylaxis Code Status: Full Resuscitation Disposition: TBD Other: Total patient care time exceeds 35 minutes excluding all procedures. Supervising Physicians: Dr Deven BELCHER,DONTA Clemente MAMMOGRAPHER October 17, 2024 17:47 Electronically Signed by: DONTA BELCHER APRN10/17/24 1827 Electronically Co-Signed by: DEVEN TEE MD10/18/24 1039 INFECTIOUS DISEASE CONSULTATION NOTE Date of Service: October 17, 2024 Reason for Consultation: Community-acquired pneumonia with interstitial lung disease. Requesting Physician: Dr. Ekaterina Benitez HISTORY OF PRESENT ILLNESS: This is a 79-year-old male patient with past medical history of diabetes mellitus, hypertension and coronary artery disease who presented to the emergency room for evaluation after sustaining a fall at home, shortness of breath and cough. Patient reported feeling generalized body weakness, his knees gave up and fell on his face. A CT of the head done on admission was negative for any acute findings. Stated he had fever and chills last Thursday. In the ER patient was found with lactic acid of 2.7, WBC of 11.9 but no fever. A chest x- ray showed bilateral pulmonary infiltrates. A CT of the chest showed bilateral ground glass opacification in the right lower lobe area consistent with interstitial lung disease. Patient has been started on Meropenem and doxycycline. On examination today in room 228 patient is still experiencing productive coughing episodes, clear sputum. Sputum culture has been collected. No episodes of emesis reported. Patient remains on oxygen via nasal cannula at 2 LPM. We will follow up on the culture results. REVIEW OF SYSTEMS CONSTITUTIONAL: Denies fever, chills, or fatigue. HEAD/FACE: No signs of trauma. EENT: Denies eye pain, blurred vision, double vision, or light sensitivity. RESPIRATORY: Shortness of breath and productive cough. CARDIOVASCULAR: Denies chest pain, palpitation, syncope GASTROINTESTINAL/ABDOMINAL: Denies abdominal pain, constipation, diarrhea, nausea or vomiting. GENITOURINARY: Denies dysuria or hematuria. MUSCULOSKELETAL: Denies joint pain, tenderness, or trauma. Generalized body weakness. INTEGUMENTARY: Denies rash or itchiness NEUROLOGICAL/PSYCH: Denies anxiety, depression, heat or cold intolerance. PAST MEDICAL HISTORY: Diabetes mellitus. Hypertension. Hyperlipidemia. CAD. PAST SURGICAL HISTORY: Coronary artery bypass graft. PAST SOCIAL HISTORY: Denied the use of alcohol, tobacco or any other illicit drug. FAMILY HISTORY: Father had diabetes mellitus and coronary artery disease. Coded Allergies: No Known Drug Allergies (Verified Allergy, 08/18/13) PHYSICAL EXAM EYES: Anicteric. Pupils equal and reactive. HENT: No oral thrush seen, moist Oral mucosa. NECK: Supple, no JVD or thyromegaly. LUNGS: Good air entry. No rales. Productive cough. Oxygen support. CARDIOVASCULAR: S1, S2 regular. No murmur heard. ABDOMEN: Soft, non tender, bowel sounds present, no organomegaly. CENTRAL NERVOUS SYSTEM: Awake, alert, oriented x 3. SKIN: No rashes, no swelling. LYMPHATICS: No peripheral lymphadenopathy. MUSCULOSKELETAL: No joint swelling, erythema or tenderness. EXTREMITIES: No cyanosis or clubbing. BACK: No deformity, no pressure ulcer. GENITOURINARY: No dysuria or hematuria. Vital Sign (Last 24 Hours) 10/17/24 10/17/24 16:32 18:56 Temp 98.1 Pulse 91 Resp 20 B/P (MAP) 128/61 Pulse Ox 93 O2 Delivery N/Cannula Low lpm O2 Flow Rate 2.0 FiO2 28 Intake & Output (last 24hrs) 10/16/24 10/16/24 10/17/24 15:00 23:00 07:00 Intake Total 850.0 ml Output Total 200 ml Balance 650.0 ml LABS: Laboratory: Test 10/17/24 20:24 10/17/24 17:45 10/17/24 03:36 10/16/24 20:14 Range/Units Potassium Level 4.4 3.5-5.1 mmol/L Magnesium Level 2.20 1.80-2.40 mg/dL Whole Blood Glucose 135 H 70-110 MG/DL White Blood Count 8.3 # 4.8-10.8 K/uL Red Blood Count 3.58 L 4.50-6.20 MIL/uL Hemoglobin 11.9 L 14.0-18.0 g/dL Hematocrit 34.8 L 42-54 % Mean Corpuscular Volume 97.2 79-99 fL Mean Corpuscular Hemoglobin 33.2 H 27.0-33.0 pg Mean Corpuscular Hemoglobin Concent 34.2 32.0-36.0 g/dL Red Cell Distribution Width 13.0 11.0-15.5 % Platelet Count 105 L 130-400 K/uL Mean Platelet Volume 11.7 H 7.5-10.5 fL Immature Granulocyte % (Auto) 1.0 0-1 % Neutrophils (%) (Auto) 74.3 40.0-77.0 % Lymphocytes (%) (Auto) 17.2 L 21.0-51.0 % Monocytes (%) (Auto) 7.1 3.0-13.0 % Eosinophils (%) (Auto) 0.2 0.0-8.0 % Basophils (%) (Auto) 0.2 0.0-5.0 % Neutrophils # (Auto) 6.1 1.8-7.7 K/uL Lymphocytes # (Auto) 1.4 1.0-4.8 K/uL Monocytes # (Auto) 0.6 0.1-1.0 K/uL Eosinophils # (Auto) 0.02 0.00-0.70 K/uL Basophils # (Auto) 0.02 0.00-0.20 K/uL Absolute Immature Granulocyte (auto 0.08 0-1 K/uL Nucleated Red Blood Cells 0.0 0.0-0.19 % Sodium Level 140 136-145 mmol/L Chloride Level 107 101-111 mmol/L Carbon Dioxide Level 23 21-32 mmol/L Blood Urea Nitrogen 17 7-18 mg/dL Creatinine 0.8 0.5-1.3 mg/dL Glomerular Filtration Rate Calc 91 >90 mL/min Random Glucose 105 # 70-105 mg/dL Total Calcium 7.8 L 8.5-10.1 mg/dL Total Bilirubin 1.6 #H 0.2-1.0 mg/dL Aspartate Amino Transf (AST/SGOT) 23 10-37 U/L Alanine Aminotransferase (ALT/SGPT) 25 # 12-78 U/L Alkaline Phosphatase 103 50-136 U/L Total Protein 6.0 6.0-8.3 g/dL Albumin 2.2 #L 3.5-5.0 g/dL Lactic Acid Level 1.8 0.8-2.5 mmol/L Test 10/16/24 17:17 10/16/24 17:09 10/16/24 14:40 10/16/24 14:30 Range/Units Whole Blood Ketones Quantitative 0.9 H 0.0-0.6 mmol/L Blood Gas Specimen Type Arterial Arterial Blood pH 7.383 7.350-7.450 Arterial Blood Partial Pressure CO2 38 35-48 mmHg Arterial Blood Partial Pressure O2 83.1 83.0-108.0 mmHg Arterial Blood HCO3 22.1 21.0-28.0 mmol/L Arterial Blood Oxygen Saturation 95.4 94.0-98.0 % Arterial Blood Base Excess -2.6 L -2.0-3.0 mmol/L Hemoglobin (Blood Gas) 13.7 13.5-17.5 g/dL Sodium (Blood Gas) 136 136-145 MMOL/L Bedside Potassium (Blood Gas) 3.6 3.4-4.5 MMOL/L Bedside Chloride (Blood Gas) 105 98-107 MMOL/L Bedside Glucose (Blood Gas) 194 H 65-95 MG/DL Bedside Ionized Calcium (Blood Gas) 1.12 L 1.15-1.33 MMOL/L Bedside Lactic Acid (Blood Gas) 1.41 H 0.36-0.75 MMOL/L Blood Gas Temperature 37.0 35.5-37.0 CELSIUS Blood Gas Flow-by 2.00 0.00-15.00 L/min Blood Gas Vent Mode NC ROOM AIR FiO2 21.0 % Blood Gas Specimen Comment RBJUAN Urine Color YELLOW YELLOW Urine Appearance CLEAR CLEAR Urine pH 5.0 5.0-8.0 Urine Specific [place] 1.031 1.001-1.031 Urine Protein NEGATIVE NEGATIVE mg/dL Urine Glucose (UA) >=1000 H NEGATIVE mg/dL Urine Ketones 10 H NEGATIVE mg/dL Urine Occult Blood SMALL H NEGATIVE Urine Nitrate NEGATIVE NEGATIVE Urine Bilirubin NEGATIVE NEGATIVE mg/dL Urine Urobilinogen 3 H 0.2-1.0 mg/dL Urine Leukocyte Esterase NEGATIVE NEGATIVE Gina/uL Urine RBC 2-5 H 0-1 /HPF Urine WBC 2-5 H 0-1 /HPF Urine Bacteria RARE None Seen /HPF Urine Yeast RARE None Seen /HPF Influenza Type A Antigen Negative For Type A NEGATIVE Influenza Type B Antigen Negative For Type B NEGATIVE SARS-CoV-2, RNA, NAAT NEGATIVE SARS CoV-2 NEGATIVE Test 10/16/24 14:01 Range/Units White Cell Morphology Comment See comments Erythrocyte Sedimentation Rate 109 H 0-20 MM/HR Prothrombin Time 12.0 H 9.6-11.6 SEC Prothromb Time International Ratio 1.15 0.85-1.15 Activated Partial Thromboplast Time 33.6 26.3-35.5 SEC Hemoglobin A1c 7.7 H 4.0-6.0 % Estimated Average Glucose (eAG) 174 H 70-126 mg/dL Direct Bilirubin 1.8 H 0.0-0.3 mg/dL Total Creatine Kinase 70 # 21-232 U/L Troponin I High Sensitivity 20 4-75 ng/L C-Reactive Protein, Quantitative 240.00 H 0.5-3.0 mg/L B-Type Natriuretic Peptide 150 H 0-100 pg/mL Procalcitonin 1.44 H 0.05-0.5 ng/mL Thyroid Stimulating Hormone (TSH) 0.89 0.36-3.74 uIU/mL ASSESSMENT: Pneumonia. Acute hypoxic respiratory failure, requiring oxygen support. Status post mechanical fall. Leukocytosis, resolving. History of interstitial pulmonary fibrosis, Coronary artery disease. Diabetes mellitus. PLAN: Continue Meropenem. Continue doxycycline. Continue GI prophylaxis. We will follow up on the culture results. Continue antidiabetics. We will monitor electrolytes. Continue oxygen support. Thank you for allowing ID to participate in the care of this patient. This case was reviewed and discussed with my supervising physician and the above assessment and plan was formulated and agreed upon. ATTESTATION BY PHYSICIAN I have seen and examined the patient. I reviewed the documentation, medical decision making, and treatment plan as noted by the mid-level provider above. I agree with the findings and plan of care. JUANITA PÉREZ MD, MIRTA L FNP October 17, 2024 21:23 Electronically Signed by: JENI KARIMIP, NP10/18/24 1500 Electronically Co-Signed by: Procedure(s): PROCEDURE: HEAD WO - CT HEAD/BRAIN W/O CONTRAST CT HEAD/BRAIN W/O CONTRAST CLINICAL HISTORY: fall, hist side of the face COMPARISON: None TECHNIQUE: Multiple sequential axial images of the head were obtained from the base of the skull through vertex. CT was performed with one or more of the following dose reduction techniques: automated exposure control, adjustment of the mA and/or kV according to patient size, or use of iterative reconstruction technique FINDINGS: There is advanced atrophy and small vessel disease. The orbital contents, paranasal sinuses and mastoid air cells are within normal limits. The calvarium is intact. IMPRESSION: There are no acute findings. DICTATED BY: VISHNU MORGAN DO DATE: 10/16/24 175 ELECTRONICALLY SIGNED BY: VISHNU MORGAN DO DATE: 10/18/24 0842 PROCEDURE: CHEST WO - CT CHEST W/O CONTRAST CT CHEST W/O CONTRAST CLINICAL HISTORY: cough, resp failure, fever x 2 days, abnormal cxr COMPARISON: 11/16/2023 . TECHNIQUE: Multiple sequential axial images of the chest were obtained from the thoracic inlet through upper abdomen. CT was performed with one or more of the following dose reduction techniques: automated exposure control, adjustment of the mA and/or kV according to patient size, or use of iterative reconstruction technique FINDINGS: again demonstrated is bilateral bibasilar and peripheral honeycombing. There is superimposed groundglass opacification as well as an area of consolidation demonstrated in the right lower lobe. Mediastinum is free of pathologic lymphadenopathy. Again demonstrated is calcified coronary disease change prior CABG. The visualized intra-abdominal viscera is unremarkable for acute findings. There is mild diffuse degenerative changes spine and change prior median sternotomy. IMPRESSION: Bilateral groundglass opacification in right lower lobe area of consolidation most consistent with infiltrate superimposed on interstitial lung disease DICTATED BY: VISHNU MORGAN DO DATE: 10/16/24 1800 ELECTRONICALLY SIGNED BY: VISHNU MORGAN DO DATE: 10/18/24 0842 PROCEDURE: RENAL - US RENAL SONOGRAM Exam Type: US RENAL SONOGRAM Clinical Information: SITA Comparison: None Findings: Examination shows normal renal size and echogenicity bilaterally. Preserved cortical thickness and corticomedullary junction region is seen. No hydronephrosis or calculi are seen. No renal masses are seen. There is no evidence of perinephric fluid on either side. No evidence of significant ureteral dilatation is seen. The right kidney measures 9.3 x 4.1 cm. The left kidney measures 9.6 x 3 cm. The urinary bladder is normal. No bladder masses, stones, or wall thickening is seen. IMPRESSION: Normal renal anatomy bilaterally. DICTATED BY: DOROTEO JEAN MD DATE: 10/17/2437 ELECTRONICALLY SIGNED BY: DOROTEO JEAN MD DATE: 10/18/2447 PROCEDURE: ECHO [facility] - ECHO 2-D COMPLETE APPROVED REPORT EXAM: Two-dimensional and M-mode echocardiogram with Doppler and color Doppler. INDICATION ICD: Assess for heart failure 2D Dimensions RVDd 3.4 cm LVEF(%) 41.0 (>50%) LVED Vol(simp.) 73.0 mL IVSd 2.0 (0.7-1.1cm) FS(%) 19 % LVES Vol(simp.) 35.0 mL LVDd 3.3 (3.8-5.6cm) LA (2D) 3.6 (1.6-4.0cm) LVEF(%, simp.) 52 % PWd 2.1 (0.7-1.1cm) Ao Root(2D) 3.0 (2.0-3.7cm) LA ESV INDEX (BP) 25.01 mL/m2 IVSs 2.2 cm LVOT diam 2.5 (1.8-2.4cm) LVDs 2.7 (2.5-4.0cm) PWs 2.1 cm Deformation Strain Apical 4 -13.1 % Apical 2 -11.1 % Apical 3 -12.0 % Global Strain -12.1 % M-Mode Dimensions EPSS 0.4 cm LA (MM) 4.0 (1.6-4.0cm) Ao Root(MM) 3.6 (2.0-3.7cm) Aortic Valve AoV Vmax 1.5 m/s Ao Peak GR 8.9 mmHg LVOT Vmax 1.2 m/s AoV VTI 0.2 m Ao Mean GR 4.9 mmHg LVOT VTI 0.23 m PETRA (VMAX) 4.77 cm2 Al P1/2T 530 ms PETRA (VTI) 4.8 cm2 Mitral Valve MV E Vmax 49.2 cm/s DECEL Time 71 ms MV A Vmax 127.2 cm/s P 1/2 T 30 ms E/A ratio 0.4 MVA (PHT) 7.4 cm2 TDI E/E' Medial 11.5 E/E' Lateral 7.8 Medial E' Peak V 4.27 cm/s Lateral E' Peak V 6.31 cm/s Pulmonary Valve PV Vmax 1.2 m/s PV VTI 0.19 m PV Mean GR 3.3 mmHg PV Peak GR 6.0 mmHg Tricuspid Valve TR Vmax 3.2 m/s RVSP 37.1 mmHg TR Peak GR 40.5 mmHg Left Ventricle The left ventricle is normal size. GLS -12.0% Severe concentric left ventricular hypertrophy. LVEF is 50-55%. Stage I diastolic dysfunction. E/A flow is fused. Right Ventricle The right ventricle is normal size. Right ventricular systolic function is moderately to severely reduced. Atria The left atrium size is normal. The right atrium size is normal. Aortic Valve The aortic valve is normal in structure. Trace of aortic regurgitation is present. There is no aortic valvular stenosis. Mitral Valve The mitral valve is normal in structure. There is trace of mitral valve regurgitation noted. There is no mitral valve stenosis. Tricuspid Valve The tricuspid valve is normal in structure. There is mild tricuspid valve regurgitation noted. Pulmonic Valve The pulmonary valve is normal in structure. There is no pulmonic valvular regurgitation. Great Vessels The aortic root is normal in size. The IVC is normal in size and collapses >50% with inspiration. Pericardium There is no pericardial effusion. Other Information Quality : Adequate Conclusion Severe concentric left ventricular hypertrophy. LVEF is 50-55%. Stage I diastolic dysfunction. E/A flow is fused. GLS -12.0% There is trace of mitral valve regurgitation noted. 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 Acute urinary tract infection,POA Underlying history of interstitial pulmonary fibrosis, POA History of bronchiectasis, POA Lactic acidosis, POA Acute kidney injury, POA Status post fall, POA Hypovolemic hyponatremia, POA Hypotension, POA, resolving after fluid resuscitation Mild ketosis with history of Jardiance use as outpatient, POA Moderate protein calorie malnutrition, POA Chronic problem History of multivessel coronary artery disease, POA History of ischemic cardiomyopathy, POA Uncontrolled type 2 diabetes mellitus, POA Hypertension, POA Hyperlipidemia, POA Debility/frailty, POA Assessment: Severe sepsis secondary to underlying community-acquired pneumonia, POA Acute hypoxemic respiratory failure, POA Multifocal community acquired pneumonia, POA CT chest findings of bilateral consolidative pneumonia, patient with preexisting chronic lung disease with interstitial pulmonary fibrosis with bronchiectasis Status post IV Cefepime and Doxycycline Respiratory culture positive for Jessica albicans Patient is required to continue oral antibiotics for7 days Patient failed 6 minute walk test-will be sent home with home oxygen Underlying history of interstitial pulmonary fibrosis, POA History of bronchiectasis, POA Autoimmune Workup: Positive ALEXANDRA, positiveRNP Underlying mixed connective tissue disease Patient is required to follow up with the pulmonology as outpatient for further treatment Chronic congestive diastolic heart failure , POA Severe concentric LVH BNP stable continue to monitor Follow up with primary care doctor. Acute urinary tract infection,POA Acute kidney injury, POA SITA resolved Urine culture positive for Staphylococcus aureus and strep B Continue antibiotics as indicated Discharge Instructions: DATE OF ADMISSION: 10/16/2024 DATE OF DISCHARGE: 10/20/2024 DISPOSITION: Home with home oxygen CONDITION: Medically stable CONSULTANTS: Pulmonology, Infectious Disease FOLLOW UP APPOINTMENTS: Follow up with your primary care doctor in 2 to 3 days . Follow-up with etymology professor PROCEDURES: na IMAGING: report attached to summary MICROBIOLOGY: report attached to summary HOME MEDICATIONS: see med rec NEW MEDICATIONS: See medication reconciliation EMERGENCY INSTRUCTIONS: The patient was instructed to present to the nearest Emergency department or call 911 once their symptoms will return or worsen. Home Medications: Reported Medications Fluticasone/Umeclidin/Vilanter (Trelegy Ellipta 200-62.5-25) 200-62.5 Blst.w.dev, 1 PUFF IH DAILY for 30 Days, #60 EACH 0 Refills 10/17/24 Albuterol Sulfate (Ventolin Hfa) 90 Mcg Hfa.aer.ad, 2 PUFF IH Q4HPRN PRN for wheezing for 30 Days, #18 GM 0 Refills 10/17/24 Albuterol Sulfate (Albuterol Sulfate) 2.5 Mg/3 Ml (0.083 %) Vial.neb, 1 VIAL NEB TID PRN for wheezing, #150 ML 0 Refills 10/17/24 Folic Acid (Folvite) 1 Mg Tab, 1 TAB PO DAILY for 30 Days, #30 TAB 0 Refills 10/17/24 Empagliflozin (Jardiance) 25 Mg Tablet, 25 MG PO AM, TAB 11/16/23 Cholecalciferol (Vitamin D3) (Vitamin D3) 125 Mcg (5000 Unit) Capsule, 125 MCG PO AM, CAP 11/03/23 Icosapent Ethyl (Icosapent Ethyl) 1 Gram Capsule, 1 GM PO AM, CAP 11/03/23 Cyanocobalamin (Vitamin B-12) (Vitamin B12) 1,000 Mcg Tablet, 1000 MCG PO AM, TAB 11/03/23 Olmesartan Medoxomil (Olmesartan Medoxomil) 40 Mg Tablet, 40 MG PO AM, TAB 11/03/23 Glipizide (Glipizide) 10 Mg Tablet, 10 MG PO BID, TAB 05/02/19 Rosuvastatin Calcium (Rosuvastatin Calcium) 5 Mg Tablet, 5 MG PO AM, TAB 05/02/19 Metoprolol Tartrate (Metoprolol Tartrate) 25 Mg Tablet, 25 MG PO BID, TAB 04/11/14 Aspirin (ASPIRIN 81 MG ECTAB) 81 Mg Ectab, 81 MG PO HS, TAB.EC 04/07/14 Discontinued Reported Medications Folic Acid (Folic Acid) 0.4 Mg Tablet, 0.4 MG PO AM, TAB 11/03/23 Furosemide (Furosemide) 40 Mg Tablet, 40 MG PO AM, TAB 10/09/23 Discontinued Scripts Nystatin (Mycostatin Cream [Wound Center Only]) 100,000 Unit/Gram Crm, 1 APPL TP TID, #1 TUB Prov:HERSON GAVIN AGPCNP 11/22/23 Guaifenesin/Dextromethorphan (Guaifenesin-Dm 200-20 mg/10 ml) 100 Mg-10 Mg/5 Ml Liquid, 10 ML PO Q4H PRN for COUGH, #120 ML Prov:HERSON GAVIN 11/22/23 Fluconazole (Fluconazole) 100 Mg Tablet, 100 MG PO DAILY, #3 TAB 0 Refills Prov:HERSON GAVIN 11/22/23 Time spent arranging discharge: 31-60 minutes ATTESTATION BY PHYSICIAN I have seen and examined the patient. I reviewed the documentation, medical decision making, and treatment plan as noted by the resident provider above. I agree with the findings and plan of care. Musa Sierra MD, ANCHU A MD October 20, 2024 14:39
[2024-10-20] MEDS ORDERED: BENZ-39 PO (14:43)
[2024-10-20 15:14] LABS: ATYPICAL P-ANCA AB <1:20 titer (Neg:<1:20)
[2024-10-21] VITALS (9 sets, daily range): BP systolic 131–166; BP diastolic 57–86; PULSE 70–83; RESP 18–19; TEMP 97.5–98.4; O2SAT 90–96
--- NOTE | 2024-10-21 07:49 | PN ---
[facility] PROGRESS NOTE Date of Service: October 20, 2024 Time of Service: 07:45 SUBJECTIVE: 79-year-old male with underlying history hypertension, hyperlipidemia, type 2 diabetes mellitus, coronary artery disease with prior history of coronary artery bypass grafting in 2003, history of interstitial pulmonary fibrosis with bronchiectasis, history of hospitalization in [facility] [place] for septic shock in 11/2023 who presented to the ER for further evaluation of productive cough, shortness of breath, fevers and chills. Symptoms have been ongoing for the past 2-3 days and patient's reports that patient has been having high-grade fever of greater than 102 F at home yesterday. Patient has been having dyspnea on exertion as well as malaise and lethargy. O ral intake has been poor. Patient was ambulating to the restroom today when he felt weak and per patient had a fall. Patient denies any syncopal episode. Denies any chest pain. Patient has not been taking any antibiotics as outpatient. Patient previously has known history of fibrotic lung disease with bronchiectasis and was hospitalized in [facility] [place] for community-acquired pneumonia and UTI secondary to ESBL E coli in 11/2023. On presentation to the hospital, patient was noted to be hypotensive, tachycard ic with T-max of 97.9 F. [place] [address], hemoglobin 12.7, platelet count of [id number]. CMP remarkable for sodium of 132, potassium 3.8, BUN of 24, creatinine 1.4, lactic acid of 2.7, procalcitonin of 1.44. Chest x-ray showed bilateral infiltrates concerning for pneumonia. Patient will be admitted for further treatment and management of severe sepsis, respiratory failure, developing community-acquired pneumonia in the setting of chronic lung disease with interstitial pulmonary fibrosis with bronchiectasis. 10/17/2024: Patient seen resting on the bed. Patient states considerable improvement of his condition. His shortness of breath has improved and is currently on 2 L of oxygen. He is tolerating physical therapy well. CT chest showed Bilateral ground glass opacification in right lower lobe area of consolidation most consistent with infiltrate superimposed on interstitial lung disease. Infectious Disease and pulmonology on board patient is being treated with IV Merrem and doxycycline currently. EKG shows regular and multiple premature complexes-ventricular paced. Pending discharge disposition. 10.19.24: Patient seen resting on the bed.. He is tolerating physical therapy well..He is not requiring oxygen supplementation at this time . Urine culture positive for group B streptococci and Staphylococcus aureus .Respiratory culture showing oral mark and Jessica species .IV Merrem was discontinued and he is started on IV Cefepime .Pending discharge disposition . 10.20.24:Patient failed 6 min walk test- he will be requiring home oxygen . Patient appears clinically better at this time. Infectious disease and Pulmonology recommendations appreciated. Discharge suspended for pending home oxygen approval . REVIEW OF SYSTEMS CONSTITUTIONAL: Fevers, chills, malaise, poor oral intake NEUROLOGICAL: Denies headache, amaurosis fugax, motor weakness, sensory deficit, vertigo/spinning sensation, gait abnormalities, or tremors. ENT: No hearing loss, otalgia, otorrhea, rhinitis, rhinorrhea, hoarseness, or sore throat. CARDIOVASCULAR: Denies any exertional angina, dyspnea on exertion, orthopnea, paroxysmal nocturnal dyspnea, palpitations, life-threatening arrhythmias, claudication. PULMONARY: Productive cough, shortness of breath, dyspnea on exertion SLEEP: Denies morning headaches, daytime somnolence or napping. Denies difficulty falling asleep, staying asleep, waking from sleep. Denies knowledge of snoring. GASTROINTESTINAL: Denies any type of dysphagia to either liquids or solids. Denies nausea, vomiting, pyrosis, early satiety, abdominal pain, diarrhea, constipation, or changes in stool consistency or caliber. Denies coffee-ground emesis, hematemesis, hematochezia, or melanotic stools. GENITOURINARY: Denies frequency, urgency, nocturia, hematuria or incontinence (Storage/Irritative symptoms.) Low urinary stream, straining to void, urinary intermittency or hesitancy, splitting of the voiding stream, terminal dribbling. ENDOCRINOLOGIC: Denies polyuria, polydipsia, polyphagia or heat/cold intolerances. HEMATOLOGIC: Denies thrombophilia/previous clots, or coagulopathy/bleeding disorders. ONCOLOGIC: Denies personal history of malignancy. DERMATOLOGIC: Denies rashes or pruritus. PSYCHIATRIC: Denies any suicidal or homicidal ideation. Denies hallucinations. PHYSICAL EXAM GENERAL APPEARANCE: The patient is awake, alert, and oriented, appears debilitated and frail NEUROLOGICAL: Cranial nerves II-XII grossly intact. Motor is 5/5 in bilateral upper and lower extremities proximal to distal. No sensory deficits. HEENT: Face is symmetric. Pupils are equal and reactive. Extraocular movements are intact. NECK: Supple. No JVD. No thyromegaly. No submental, submandibular, pre- /postauricular, occipital or supraclavicular lymphadenopathy. CHEST: Normal chest expansion. No Telemetry. LUNGS: Patient has fine crackles noted of bilateral lung bases with rhonchorous breath sounds, no active wheezing noted CARDIOVASCULAR: Regular. S1 and S2 normal. No appreciable rubs, murmurs or gallops. ABDOMEN: Soft, nontender, and nondistended. There is no rebound, voluntary guarding, or rigidity. : Deferred. No Davila. EXTREMITIES: Non-edematous and not cyanotic. No clubbing. Good capillary refill. SKIN: No skin breakdown. Vital Signs (last 8hr) Date Time Temp Pulse Resp B/P (MAP) Pulse Ox O2 Delivery O2 Flow Rate FiO2 10/21/24 06:54 83 18 N/Cannula Low lpm 2.0 28 10/21/24 06:50 83 18 10/21/24 04:00 98.1 82 19 147/86 97 Nasal Cannula 2.0 24 10/21/24 00:05 70 18 10/21/24 00:00 98.4 72 18 131/57 96 Nasal Cannula 2.0 24 LABS: Laboratory: Test 10/21/24 05:30 10/20/24 03:55 10/19/24 19:42 Range/Units Whole Blood Glucose 87 # 70-110 MG/DL White Blood Count 8.3 # 4.8-10.8 K/uL Red Blood Count 3.75 L 4.50-6.20 MIL/uL Hemoglobin 12.3 L 14.0-18.0 g/dL Hematocrit 35.7 L 42-54 % Mean Corpuscular Volume 95.2 79-99 fL Mean Corpuscular Hemoglobin 32.8 27.0-33.0 pg Mean Corpuscular Hemoglobin Concent 34.5 32.0-36.0 g/dL Red Cell Distribution Width 12.5 11.0-15.5 % Platelet Count 162 130-400 K/uL Mean Platelet Volume 10.8 H 7.5-10.5 fL Immature Granulocyte % (Auto) 0.5 0-1 % Neutrophils (%) (Auto) 71.5 40.0-77.0 % Lymphocytes (%) (Auto) 21.1 21.0-51.0 % Monocytes (%) (Auto) 6.7 3.0-13.0 % Eosinophils (%) (Auto) 0.1 0.0-8.0 % Basophils (%) (Auto) 0.1 0.0-5.0 % Neutrophils # (Auto) 5.9 1.8-7.7 K/uL Lymphocytes # (Auto) 1.7 1.0-4.8 K/uL Monocytes # (Auto) 0.6 0.1-1.0 K/uL Eosinophils # (Auto) 0.01 0.00-0.70 K/uL Basophils # (Auto) 0.01 0.00-0.20 K/uL Absolute Immature Granulocyte (auto 0.04 0-1 K/uL Nucleated Red Blood Cells 0.0 0.0-0.19 % Sodium Level 143 136-145 mmol/L Potassium Level 3.7 3.5-5.1 mmol/L Chloride Level 109 101-111 mmol/L Carbon Dioxide Level 31 21-32 mmol/L Blood Urea Nitrogen 20 H 7-18 mg/dL Creatinine 0.9 0.5-1.3 mg/dL Glomerular Filtration Rate Calc 87 >90 mL/min Random Glucose 113 H 70-105 mg/dL Lactic Acid Level 1.5 0.8-2.5 mmol/L Total Calcium 8.4 L 8.5-10.1 mg/dL Total Bilirubin 0.4 0.2-1.0 mg/dL Aspartate Amino Transf (AST/SGOT) 27 10-37 U/L Alanine Aminotransferase (ALT/SGPT) 28 12-78 U/L Alkaline Phosphatase 117 50-136 U/L C-Reactive Protein, Quantitative 41.40 H 0.5-3.0 mg/L Total Protein 6.0 6.0-8.3 g/dL Albumin 2.2 L 3.5-5.0 g/dL Bedside Glucose Comment Notified Nurse Current Medications Medications (Trade) Dose Ordered Sig/Eliceo Route PRN Reason Start Time Stop Time Status Last Admin Dose Admin Acetaminophen (TYLenol 325MG TAB) 650 mg Q6H PRN PO MILD PAIN (1-3) 10/16/24 17:00 11/15/24 16:59 10/17/24 14:51 650 MG Aspirin (Aspirin 81mg Ec Tab) 81 mg HS PO 10/17/24 21:00 11/16/24 20:59 10/20/24 20:59 81 MG Atorvastatin Calcium (LIPItor 10MG) 10 mg HS PO 10/17/24 21:00 11/16/24 20:59 10/20/24 20:59 10 MG Benzonatate (Tessalon 100mg Caps) 200 mg TID PO 10/18/24 14:00 11/17/24 13:59 10/20/24 20:59 200 MG Budesonide (Pulmicort 0.5 Mg/2ml) 0.5 mg BIDRESP IH 10/16/24 16:30 11/15/24 16:29 10/21/24 06:50 0.5 MG Cefepime HCl (MAXipime 1 GM vial) 1 gm Q12H IVPB 10/18/24 14:00 10/28/24 13:59 10/21/24 01:52 1 GM Ceftriaxone Sodium (ROCEphine 1G INJ) 1 gm Q8H5 IVPB 10/18/24 21:00 10/18/24 14:00 DC Doxycycline Hyclate 250 ml @ 125 mls/hr Q12H IV 10/16/24 16:30 10/26/24 16:29 10/21/24 04:03 125 MLS/HR Enoxaparin Sodium (Lovenox) 30 mg DAILY SQ 10/18/24 09:00 11/17/24 08:59 10/20/24 10:38 30 MG Folic Acid (FOLic ACID 1 MG TABLET) 1 mg DAILY PO 10/18/24 09:00 11/17/24 08:59 10/20/24 10:03 1 MG Guaifenesin/ Dextromethorphan (RobiTUSSin DM 200/20MG 10ML) 10 ml Q6H PRN PO COUGH 10/16/24 17:00 10/17/24 05:47 DC 10/17/24 01:42 10 ML Guaifenesin/ Dextromethorphan (RobiTUSSin DM 200/20MG 10ML) 15 ml Q4H4 PRN PO COUGH 10/17/24 06:00 11/16/24 05:59 10/19/24 06:29 15 ML Insulin Glargine (LANtus 100 UNITS/ML 10 ML VIAL) 10 units HS SQ 10/16/24 21:00 11/15/24 20:59 10/20/24 21:00 10 UNITS Insulin Human Regular (humuLIN R 100 UNIT/ML 3ML) INSULIN SLIDING SCAL... ACHS SQ 10/16/24 16:30 11/15/24 16:29 10/20/24 21:01 2 UNIT Ipratropium Bumpass (AtrovENT UD) 0.5 mg [id number] IH 10/16/24 18:00 11/15/24 17:59 10/21/24 06:50 0.5 MG Magnesium Sulfate 50 ml @ 0 mls/hr PROTOCOL PRN IV MAGNESIUM PROTOCOL 10/17/24 07:30 11/16/24 07:29 10/17/24 08:38 25 MLS/HR Meropenem (Merrem 1gm) 1 gm Q12H IVPB 10/16/24 16:30 10/18/24 13:58 DC 10/18/24 05:52 1 GM Methylprednisolone Sodium Succinate (Solu-medROL 40MG) 40 mg Q12H IVP 10/18/24 10:30 10/19/24 18:11 DC 10/19/24 10:35 40 MG Metoprolol Tartrate (loprESSOR) 25 mg BID PO 10/17/24 21:00 11/16/24 20:59 10/20/24 20:59 25 MG Pantoprazole Sodium (PROTonix 40MG INJ) 40 mg Q24H IVP 10/16/24 16:30 11/15/24 16:29 10/20/24 17:01 40 MG Pharmacy Profile Note (Pharmacy Communication) 1 each ONCE MISC 10/16/24 16:30 10/16/24 16:29 DC Potassium Chloride 100 ml @ 100 mls/hr AD PRN IV POTASSIUM PROTOCOL 10/17/24 10:30 11/16/24 10:29 Potassium Chloride (K-Dur/Klor-Con 20meq) 20 meq AD PRN PO POTASSIUM PROTOCOL 10/17/24 10:30 11/16/24 10:29 10/17/24 14:50 20 MEQ Potassium Chloride (KCl 10% Elixir 20meq/15ml) 20 meq AD PRN PO POTASSIUM PROTOCOL 10/17/24 10:30 11/16/24 10:29 Sodium Chloride 1,000 ml @ 75 mls/hr [id number] IV 10/16/24 16:30 10/18/24 10:41 DC 10/18/24 09:34 75 MLS/HR Thiamine HCl (Vitamin B-1) 100 mg Q24H IVP 10/16/24 17:00 10/21/24 17:00 10/20/24 17:01 100 MG Vitamin B Complex (Vitamin B-12) 1,000 mcg AM PO 10/18/24 09:00 11/17/24 08:59 10/20/24 10:03 1,000 MCG DIAGNOSTICS / RADIOLOGY: [ ] Discharge diagnosis : Severe sepsis secondary to underlying community-acquired pneumonia, POA Acute hypoxemic respiratory failure, POA Multifocal community acquired pneumonia, POA 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, POA-positive [employer]IC[employer] Acute urinary tract infection,POA Underlying history of interstitial pulmonary fibrosis, POA History of bronchiectasis, POA Lactic acidosis, POA Acute kidney injury, POA Status post fall, POA Hypovolemic hyponatremia, POA Hypotension, POA, resolving after fluid resuscitation Mild ketosis with history of Jardiance use as outpatient, POA Moderate protein calorie malnutrition, POA Chronic problem History of multivessel coronary artery disease, POA History of ischemic cardiomyopathy, POA Uncontrolled type 2 diabetes mellitus, POA Hypertension, POA Hyperlipidemia, POA Debility/frailty, POA Assessment: Severe sepsis secondary to underlying community-acquired pneumonia, POA Acute hypoxemic respiratory failure, POA Multifocal community acquired pneumonia, POA CT chest findings of bilateral consolidative pneumonia, patient with preexisting chronic lung disease with interstitial pulmonary fibrosis with bronchiectasis Status post IV Cefepime and Doxycycline Respiratory culture positive for Jessica albicans Patient is required to continue oral antibiotics for7 days Patient failed 6 minute walk test-will be sent home with home oxygen pending home oxygen approval Underlying history of interstitial pulmonary fibrosis, POA History of bronchiectasis, POA Autoimmune Workup: Positive ALEXANDRA, positiveRNP Underlying mixed connective tissue disease Patient is required to follow up with the pulmonology as outpatient for further treatment Chronic congestive diastolic heart failure , POA Severe concentric LVH BNP stable continue to monitor Follow up with primary care doctor. Acute urinary tract infection,POA Acute kidney injury, POA SITA resolved Urine culture positive for Staphylococcus aureus and strep B Continue antibiotics as indicated ATTESTATION BY PHYSICIAN I have seen and examined the patient. I reviewed the documentation, medical decision making, and treatment plan as noted by the resident provider above. I agree with the findings and plan of care. Musa Sierra MD, ANCHU A MD October 21, 2024 07:49
[2024-10-21 08:26] LABS: HEMATOCRIT 34.9 % (42-54); MEAN CORPUSCULAR HGB CONC 34.7 g/dL (32.0-36.0); MEAN CORPUSCULAR VOLUME 95.1 fL (79-99); RED BLOOD CELL COUNT(AUTO) 3.67 MIL/uL (4.50-6.20); RED CELL DISTRIBUTION WIDTH 12.4 % (11.0-15.5); WHITE BLOOD COUNT (AUTO) 6.1 K/uL (4.8-10.8)
[2024-10-21 08:33] LABS: CREATININE 0.7 mg/dL (0.5-1.3); POTASSIUM 3.7 mmol/L (3.5-5.1)
--- NOTE | 2024-10-21 12:03 | NUR ---
cm note spoke to pt and spouse and informed that home O2 is approved and is pending delivery to home. states will followup and let nurse know when delivered. aware will need to bring the portable tank to hospital at [place] .Gualberto phone# provided to pt/ [phone].
--- NOTE | 2024-10-21 13:28 | PN ---
[facility] PROGRESS NOTE Date Patient Seen: October 21, 2024 Time of Visit: 13:28 Supervising Physician: Dr. Brendon Britton Consulting Physician: Dr Rodríguez Outpatient Specialists: [ ] Inpatient Consults: [ ] PROBLEM LIST: Acute hypoxic respiratory failure, POA, improved Community-acquired pneumonia, POA, treated Congestive heart failure, POA LVEF of 50-55% per 2D echo 10/17/2024 Stage I diastolic dysfunction per 2D echo 10/17/2024 Severe concentric left ventricular hypertrophy Interstitial lung disease Acute kidney injury, POA, improved Lactic acidosis, POA, resolved DM type 2, POA Hyperlipidemia, POA Hypertension, POA History of CAD s/p CABG INTERVAL HISTORY: Patient evaluated at bedside, currently on room air, patient is exhibited exertional dyspnea in his failed a 6 minute walk twice on this admission therefore he is pending home O2. Primary is cleared to discharge patient once home O2 has been confirmed, follow up at [facility] [place] as outpatient in 3-4 weeks to ensure resolution a community-acquired pneumonia. REVIEW OF SYSTEMS: 12 point ROS reviewed with patient. Pertinent positives mentioned above. Otherwise negative. PHYSICAL EXAM: GENERAL: alert, weak, awake oriented x 3 HEENT: EOMI, Sclera non icteric, moist mucosa NECK: Supple, no JVD, trachea midline LUNGS: Scattered rales on auscultation HEART: Regular rate and rhythm. Normal S1 and S2, without murmurs ABD: Abdomen soft, nontender. Bowel sounds present EXT: No clubbing cyanosis 2+ bilateral lower extremity edema NEURO: Alert and oriented to person, follows commands Vital Signs (last 8hr) Date Time Temp Pulse Resp B/P (MAP) Pulse Ox O2 Delivery O2 Flow Rate FiO2 10/21/24 12:01 98.1 77 19 157/66 97 Room Air 10/21/24 11:19 80 18 10/21/24 08:58 90 Nasal Cannula* 2 10/21/24 08:00 97.5 75 19 166/80 90 Room Air 10/21/24 06:54 83 18 N/Cannula Low lpm 2.0 10/21/24 06:50 83 18 LABS: Hematology Labs: Test 10/21/24 08:18 10/20/24 03:55 Range/Units White Blood Count 6.1 4.8-10.8 K/uL Red Blood Count 3.67 L 4.50-6.20 MIL/uL Hemoglobin 12.1 L 14.0-18.0 g/dL Hematocrit 34.9 L 42-54 % Mean Corpuscular Volume 95.1 79-99 fL Mean Corpuscular Hemoglobin 33.0 27.0-33.0 pg Mean Corpuscular Hemoglobin Concent 34.7 32.0-36.0 g/dL Red Cell Distribution Width 12.4 11.0-15.5 % Platelet Count 154 130-400 K/uL Mean Platelet Volume 10.5 7.5-10.5 fL Nucleated Red Blood Cells 0.0 0.0-0.19 % Immature Granulocyte % (Auto) 0.5 0-1 % Neutrophils (%) (Auto) 71.5 40.0-77.0 % Lymphocytes (%) (Auto) 21.1 21.0-51.0 % Monocytes (%) (Auto) 6.7 3.0-13.0 % Eosinophils (%) (Auto) 0.1 0.0-8.0 % Basophils (%) (Auto) 0.1 0.0-5.0 % Neutrophils # (Auto) 5.9 1.8-7.7 K/uL Lymphocytes # (Auto) 1.7 1.0-4.8 K/uL Monocytes # (Auto) 0.6 0.1-1.0 K/uL Eosinophils # (Auto) 0.01 0.00-0.70 K/uL Basophils # (Auto) 0.01 0.00-0.20 K/uL Absolute Immature Granulocyte (auto 0.04 0-1 K/uL Chemistry Labs: Test 10/21/24 11:45 10/21/24 08:18 10/20/24 03:55 Range/Units Whole Blood Glucose 156 #H 70-110 MG/DL Bedside Glucose Comment Notified Nurse Sodium Level 141 136-145 mmol/L Potassium Level 3.7 3.5-5.1 mmol/L Chloride Level 105 101-111 mmol/L Carbon Dioxide Level 32 21-32 mmol/L Blood Urea Nitrogen 14 7-18 mg/dL Creatinine 0.7 0.5-1.3 mg/dL Glomerular Filtration Rate Calc 94 >90 mL/min Random Glucose 138 H 70-105 mg/dL Total Calcium 8.2 L 8.5-10.1 mg/dL Lactic Acid Level 1.5 0.8-2.5 mmol/L Total Bilirubin 0.4 0.2-1.0 mg/dL Aspartate Amino Transf (AST/SGOT) 27 10-37 U/L Alanine Aminotransferase (ALT/SGPT) 28 12-78 U/L Alkaline Phosphatase 117 50-136 U/L C-Reactive Protein, Quantitative 41.40 H 0.5-3.0 mg/L Total Protein 6.0 6.0-8.3 g/dL Albumin 2.2 L 3.5-5.0 g/dL DIAGNOSTICS / RADIOLOGY RESULTS: [ ] PLAN continue abx for CAP per ID Stop solumedrol Follow up with rheumatology outpatient for further evaluation 6 min walk prior to DC DCP per primary NEURO: Minimize central acting medications as possible. Maintain fall precautions, adequate lighting during the day PULMONARY: Supplemental 02 as needed. Maintain aspiration precautions at all times CARDIOVASCULAR: Follow hemodynamics. Vital signs per facility protocol GI & NUTRITION: Continue with nutritional support. Continue stool softeners and laxatives as needed. KIDNEYS & ELECTROLYTES: Strict monitoring of intake, output and overall fluid balance. Avoid nephrotoxic medications to the extent possible. Medications to be dosed according to renal function. Monitor electrolytes and replace as needed ENDOCRINE: Maintain blood glucose between 100-180 at all times. Hypoglycemia protocol in place INFECTIOUS DISEASE: Trend temperature, WBC and procalcitonin level Follow cultures, deescalate antibiotics as soon as possible. Panculture if new onset fever ONCOLOGY/HEMATOLOGY/COAGULATION: Monitor for s/s of bleeding Monitor hemoglobin, coagulation studies as needed SKIN: Pressure ulcer prevention per facility protocol Specialty mattress ORTHO/REHAB: Continue PT/OT Prophylaxis: Continue GI and DVT prophylaxis Code Status: Full Resuscitation Disposition: TBD Other: PATRICA OLSEN October 21, 2024 13:28
--- NOTE | 2024-10-21 14:50 | NUR ---
DISCHARGE PERIPHERAL IV DISCONTINUED DISCHARGE EDUCATION AND INSTRUCTIONS PROVIDED TO PATIENT AND FAMILY PATIENT AND FAMILY AWARE TO TAKE NEW PRESCRIPTION TO PREFERRED PHARMACY PATIENT AND FAMILY EDUCATED ON HOW TO USE PORTABLE OXYGEN TANK PATIENT AND FAMILY AWARE TO FOLLOW UP WITH PCP IN 2-3 DAYS AND TO FOLLOW UP WITH PULMONOLOGY OUTPATIENT ALL QUESTIONS ANSWERED.
--- NOTE | 2024-10-21 15:48 | PN ---
INFECTIOUS DISEASE PROGRESS NOTE Date of Service: October 21, 2024 SUBJECTIVE: This 79 year old male patient is being seen today at bedside. He has no fever or chills. No nausea or vomiting. He is awake, alert and oriented x3. Patient will be going home on antibiotics PO, Prescription in chart. PHYSICAL EXAM EYES: Anicteric. Pupils equal and reactive. HENT: No oral thrush seen, moist Oral mucosa. NECK: Supple, no JVD or thyromegaly. LUNGS: Good air entry. No rales. Productive cough. Oxygen support. CARDIOVASCULAR: S1, S2 regular. No murmur heard. ABDOMEN: Soft, non tender, bowel sounds present, no organomegaly. CENTRAL NERVOUS SYSTEM: Awake, alert, oriented x 3. SKIN: No rashes, no swelling. LYMPHATICS: No peripheral lymphadenopathy. MUSCULOSKELETAL: No joint swelling, erythema or tenderness. EXTREMITIES: No cyanosis or clubbing. BACK: No deformity, no pressure ulcer. GENITOURINARY: No dysuria or hematuria. Vital Sign (Last 12 Hours) 10/21/24 10/21/24 10/21/24 10/21/24 04:00 06:50 06:54 08:00 Temp 98.1 97.5 Pulse 82 83 83 75 Resp 19 18 18 19 B/P (MAP) 147/86 166/80 Pulse Ox 97 90 O2 Delivery Nasal Cannula N/Cannula Low lpm Room Air O2 Flow Rate 2.0 2.0 FiO2 24 28 21 10/21/24 10/21/24 10/21/24 08:58 11:19 12:01 Temp 98.1 Pulse 80 77 Resp 18 19 B/P (MAP) 157/66 Pulse Ox 90 97 O2 Delivery Nasal Cannula* Room Air O2 Flow Rate 2 FiO2 28 21 Intake & Output (last 24hrs) 10/20/24 10/20/24 10/21/24 15:00 23:00 07:00 Intake Total 450 ml 1120.0 ml Balance 450 ml 1120.0 ml LABS: Laboratory: Test 10/21/24 11:45 10/21/24 08:18 10/20/24 03:55 Range/Units Whole Blood Glucose 156 #H 70-110 MG/DL Bedside Glucose Comment Notified Nurse White Blood Count 6.1 4.8-10.8 K/uL Red Blood Count 3.67 L 4.50-6.20 MIL/uL Hemoglobin 12.1 L 14.0-18.0 g/dL Hematocrit 34.9 L 42-54 % Mean Corpuscular Volume 95.1 79-99 fL Mean Corpuscular Hemoglobin 33.0 27.0-33.0 pg Mean Corpuscular Hemoglobin Concent 34.7 32.0-36.0 g/dL Red Cell Distribution Width 12.4 11.0-15.5 % Platelet Count 154 130-400 K/uL Mean Platelet Volume 10.5 7.5-10.5 fL Nucleated Red Blood Cells 0.0 0.0-0.19 % Sodium Level 141 136-145 mmol/L Potassium Level 3.7 3.5-5.1 mmol/L Chloride Level 105 101-111 mmol/L Carbon Dioxide Level 32 21-32 mmol/L Blood Urea Nitrogen 14 7-18 mg/dL Creatinine 0.7 0.5-1.3 mg/dL Glomerular Filtration Rate Calc 94 >90 mL/min Random Glucose 138 H 70-105 mg/dL Total Calcium 8.2 L 8.5-10.1 mg/dL Immature Granulocyte % (Auto) 0.5 0-1 % Neutrophils (%) (Auto) 71.5 40.0-77.0 % Lymphocytes (%) (Auto) 21.1 21.0-51.0 % Monocytes (%) (Auto) 6.7 3.0-13.0 % Eosinophils (%) (Auto) 0.1 0.0-8.0 % Basophils (%) (Auto) 0.1 0.0-5.0 % Neutrophils # (Auto) 5.9 1.8-7.7 K/uL Lymphocytes # (Auto) 1.7 1.0-4.8 K/uL Monocytes # (Auto) 0.6 0.1-1.0 K/uL Eosinophils # (Auto) 0.01 0.00-0.70 K/uL Basophils # (Auto) 0.01 0.00-0.20 K/uL Absolute Immature Granulocyte (auto 0.04 0-1 K/uL Lactic Acid Level 1.5 0.8-2.5 mmol/L Total Bilirubin 0.4 0.2-1.0 mg/dL Aspartate Amino Transf (AST/SGOT) 27 10-37 U/L Alanine Aminotransferase (ALT/SGPT) 28 12-78 U/L Alkaline Phosphatase 117 50-136 U/L C-Reactive Protein, Quantitative 41.40 H 0.5-3.0 mg/L Total Protein 6.0 6.0-8.3 g/dL Albumin 2.2 L 3.5-5.0 g/dL ASSESSMENT: Urinary tract infection with Staphylococcus aureus and strep agalactiae group B. Pneumonia. Acute hypoxic respiratory failure, requiring oxygen support. Status post mechanical fall. Leukocytosis, resolved. History of interstitial pulmonary fibrosis, Coronary artery disease. Diabetes mellitus. PLAN: Patient is cleared for discharged on levofloxacin and Ceftin. Prescription was written. This case was reviewed and discussed with my supervising physician and the above assessment and plan was formulated and agreed upon. JEREMIAH RYANP October 21, 2024 15:48
--- NOTE | 2024-10-24 18:10 | NUR ---
Transitional Phone Call Spoke to Juliann Meyer, Spouse [phone], states patient is "doing good." Then had issue with the phone call and got disconnected. Tried to call back unable to connect.
== END 2024-10-21 14:50 | disposition home or self-care (01) | DRG 871 ==
LOC: EDH 13:39 → EDHIP 16:23 → 2DH 10-17 01:11 → 3AH 10-18 23:32
PROVIDERS: ADMIT Internal Medicine; ATTEND Internal Medicine
DX: A41.9 Sepsis, unspecified organism (principal); J18.9 Pneumonia, unspecified organism; J96.01 Acute respiratory failure with hypoxia; E44.0 Moderate protein-calorie malnutrition; E87.1 Hypo-osmolality and hyponatremia; E87.20 Acidosis, unspecified; N17.9 Acute kidney failure, unspecified; I50.32 Chronic diastolic (congestive) heart failure; M35.1 Other overlap syndromes; N39.0 Urinary tract infection, site not specified; Z20.822 Contact with and (suspected) exposure to COVID-19; R65.20 Severe sepsis without septic shock; E11.65 Type 2 diabetes mellitus with hyperglycemia; B95.1 Streptococcus, group B, as the cause of diseases classified elsewhere; E78.5 Hyperlipidemia, unspecified; E86.1 Hypovolemia; R76.8 Other specified abnormal immunological findings in serum; I25.10 Atherosclerotic heart disease of native coronary artery without angina pectoris; B95.8 Unspecified staphylococcus as the cause of diseases classified elsewhere; I25.5 Ischemic cardiomyopathy; I11.0 Hypertensive heart disease with heart failure; R54 Age-related physical debility; J84.10 Pulmonary fibrosis, unspecified; Z95.1 Presence of aortocoronary bypass graft; Z86.19 Personal history of other infectious and parasitic diseases; Z83.3 Family history of diabetes mellitus; Y92.098 Other place in other non-institutional residence as the place of occurrence of the external cause; Z82.49 Family history of ischemic heart disease and other diseases of the circulatory system; Z68.31 Body mass index [BMI] 31.0-31.9, adult; Z79.899 Other long term (current) drug therapy
CPT/HCPCS: 36415; 36600; 70450; 71045; 71250; 76770; 80048; 80053; 80076; 81001; 82010; 82435; 82550; 82803; 82947; 82948; 83036; 83605; 83735; 83880; 84132; 84145; 84295; 84443; 84484; 85018; 85025; 85027; 85610; 85651; 85730; 86038; 86140; 86200; 86215; 86235; 86255; 86431; 86738; 87040; 87071; 87086; 87186; 87205; 87449; 87635; 87641; 87804; 93005; 93306; 93356; 94640; 94664; 94760; 96365; 99285; G0378; J0692; J1650; J1815; J2185; J2470; J2919; J3411; J3475; J3480; J3490; J7030